=== PATIENT | female | born 1970 | race Caucasian/White ===

== ENCOUNTER 2020-03-13 22:01 | Emergency (ER) | payer BC, SELFPAY ==
--- NOTE | 2020-03-13 22:02 | XRR_ITS ---
PROCEDURE INFORMATION: Exam: XR Chest, 1 View Exam date and time: 03/13/2020 11:30 PM Age: 49 years old Clinical indication: Chest pain; Type not specified TECHNIQUE: Imaging protocol: XR of the chest Views: 1 view. COMPARISON: No relevant prior studies available. FINDINGS: Lungs: Unremarkable. No consolidation. Pleural space: Unremarkable. No pleural effusion. No pneumothorax. Heart/Mediastinum: Unremarkable. No cardiomegaly. Bones/joints: Unremarkable. XR/XR chest 1V portable [id number] IMPRESSION: No acute findings.
--- NOTE | 2020-03-13 22:02 | ECG_ITS ---
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 Measurements Intervals [place] Rate: 90 P: 30 MO: 154 QRS: 13 QRSD: 90 T: 50 QT: 366 QTc: 449 Interpretive Statements SINUS RHYTHM WITH SINUS ARRHYTHMIA AND A SHORT RUN OF paroxysmal atrial tachycardia ABNORMAL RHYTHM ECG No previous ECG available for comparison Electronically Signed On 03-15-2020 0:25:58 CDT by Thuy Guevara M.D. [id number]
[2020-03-13 22:11] VITALS: BP 162/116; PULSE 109; RESP 22; TEMP 36.8; O2SAT 96; BMI 34.7
[2020-03-13 22:23] LABS: Basophils # 0.1 10^3/uL (0.0-0.1); Basophils % 0.6 %; Eosinophils # 0.3 10^3/uL (0.0-0.8); Eosinophils % 1.6 %; Hematocrit 48.2 % (37.0-47.0); Lymphocytes # 4.1 10^3/uL (0.8-4.8); Lymphocytes % 23.7 %; Mean Corpuscular HGB Conc 31.1 g/dL (30.0-36.0); Mean Corpuscular Hemoglobin 27.4 pg (28.0-34.0); Mean Platelet Volume 9.2 fL (7.4-10.4); Monocytes # 1.3 10^3/uL (0.2-0.9); Monocytes % 7.6 %; Neutrophils # 11.29 10^3/uL (1.8-7.7); Neutrophils % 65.8 %; Nucleated Red Blood Cells % 0 %; Platelet Count 371 10^3/cmm (130-400); Red Blood Count 5.48 10^6/uL (4.1-5.3); Red Cell Distribution Width 14.6 % (12.1-15.1); White Blood Count 17.2 10^3/uL (4.0-10.0)
--- NOTE | 2020-03-13 22:24 | ED_ITS ---
HPI - Chest Pain General: Chief Complaint: Chest Pain Stated Complaint: cp Time Seen by Provider: 03/13/20 22:12 Source: patient Mode of arrival: ambulatory Limitations: no limitations History of Present Illness: HPI narrative: Patient is a very nice 49-year-old female with a history of CHF and CAD here for complaints of substernal chest pain that began about 4-5 hours ago while at rest. Patient tells me the pain is located substernally and describes the pain as a tearing squeezing sensation. She tells me she had a previous WI in March 2019 and another one 2 years prior to that. She states her symptoms today feel different than her previous MIs. She tells me she does feel short of breath but states that is fairly chronic given her CHF history. She was otherwise feeling normal when pain began. She states she had a previous stress test and echocardiogram approximately a year ago but does not know the results of these (were done in [place], [place]). Patient recently moved to [place], [place]-has no established medical care. Reports no hx or symtpoms of GERD. MD complaint: chest pain Pertinent past history: coronary artery disease, prior WI and asthma Onset (ago): hour(s) Timing of current episode: constant Prior episodes: Yes Onset: during rest Pain location: substernal Pain radiation: none Quality: tearing and other (squeezing) Relieving factors: nothing Exacerbating factors: nothing Associated symptoms: Reports dyspnea; Deny abdominal pain, fever(s), nausea, palpitations, syncope or vomiting Treatment prior to arrival: none Review of Systems Const: Denies: fever(s) or chills Eyes: Denies: change in vision or blurry vision ENMT: Denies: odynophagia Card: Reports: chest pain; Denies: palpitations, irregular heart rhythm, edema, swelling of feet/ankles, lightheadedness, syncope, pre-syncope, dyspnea on exertion, orthopnea, leg pain with exertion or acrocyanosis Resp: Reports: dyspnea; Denies: productive cough, non-productive cough, pain on inspiration, hemoptysis or chest congestion GI: Denies: abdominal pain, nausea, vomiting, heartburn, diarrhea, change in bowel habits or change in stool character : Denies: dysuria Musc: Denies: neck pain, back pain or joint pain Skin/Breast: Denies: rash Neuro: Denies: headache(s), numbness in extremities, weakness in extremities or sensory changes PFSH ED PFSH: Social History Smoking and tobacco status: never smoked Physical Exam Const: COMMON NORMALS: average body habitus, patient oriented x3, no limitations, healthy appearing, alert and well nourished GENERAL APPEARANCE: cooperative, in distress (appears uncomfortable ) and anxious ORIENTATION/CONSCIOUSNESS: Yes oriented to person, Yes oriented to place and Yes oriented to time HENMT: COMMON NORMALS: normocephalic and atraumatic HEAD & SCALP: normocephalic and atraumatic Chest: COMMONS NORMALS: normal inspection of the chest and normal palpation of entire chest wall Resp: COMMON NORMALS: normal respiratory effort and clear to auscultation bilaterally AUSCULTATION: clear to auscultation bilaterally Cardio: COMMON NORMALS: regular rhythm RATE: tachycardic (mild) RHYTHM: regular rhythm GI: COMMON NORMALS: Normal to inspection, nondistended, normoactive bowel sounds present, Soft to palpation, non-tender, No hepatosplenomegaly present and no masses PALPATION: Yes Soft to palpation and Yes No hepatosplenomegaly present Extremity: COMMON NORMALS: normal to inspection, capillary refill normal, no clubbing, cyanosis or edema, no calf tenderness and no pedal edema Neuro: RODRIGUE COMA SCALE: document GCS findings [place] coma scale eye opening: Spontaneous Rodrigue coma scale verbal response: Orientated [place] coma scale motor response: Obey commands Rodrigue coma scale total score: 15 COMMON NORMALS: patient oriented x3, moves all extremities, no focal motor deficits and no sensory deficits noted SENSORIUM/ORIENTATION: Yes alert, Yes oriented to person, Yes oriented to place and Yes oriented to time Skin: NARRATIVE SKIN EXAM: facial flushing Course Reevaluation(s): Reevaluation #1: Patient reports 0/10 pain after morphine and nitro Vital Signs: Vital signs: Vital Signs Temperature 98.2 F 03/13/20 22:11 Pulse Rate 84 03/14/20 02:12 Respiratory Rate 18 03/14/20 02:35 Blood Pressure 141/101 03/14/20 02:12 Pulse Oximetry 98 03/14/20 02:12 MDM - Chest Pain MDM Narrative: Medical decision making narrative: Patient with a HEART score of at least 4. Chest pain returning while in ED. Recommend patient stay at least obs for cardiac rule out. Of note, CTA reporting ground glass appearance. She reports no fevers/body aches, cough, difficulty breathing. States she otherwise felt well prior to symptoms starting. Radiologist stated this could be secondary to edema-pt does have a hx of CHF. Will go ahead and add on BNP. Dr. Nelson will evaluate patient and speak to Dr. Hernadez about admission. Dr. Hernadez has requested patient receive COVID testing. Patient is adamantly refusing this stating she is worried about false positives and does not want to force her family into quarantine. I discussed with patient that the hospitalist is not willing to accept her without this test. Again she adamantly refuses. Patient will ultimately sign out AMA as I have recommended she come into the hospital for cardiac rule out. Risks of leaving were discussed and patient and her understand. Dr. Nelson has also spoken to patient regarding this. Lab Data: Labs: Lab Results 03/13/20 03/13/20 03/13/20 Range/Units 22:17 22:17 22:17 WBC 17.2 H (4.0-10.0) 10^3/ uL RBC 5.48 H (4.1-5.3) 10^6/u L Hgb 15.0 (11.5-15.3) g/dL Hct 48.2 H (37.0-47.0) % MCV 88.0 (81-99) fL MCH 27.4 L (28.0-34.0) pg MCHC 31.1 (30.0-36.0) g/dL RDW 14.6 (12.1-15.1) % Plt Count 371 (130-400) 10^3/c mm MPV 9.2 (7.4-10.4) fL Neut % (Auto) 65.8 % Lymph % (Auto) 23.7 % Woods % (Auto) 7.6 % Eos % (Auto) 1.6 % Baso % (Auto) 0.6 % Neut # (Auto) 11.29 H (1.8-7.7) 10^3/u L Lymph # (Auto) 4.1 (0.8-4.8) 10^3/u L Woods # (Auto) 1.3 H (0.2-0.9) 10^3/u L Eos # (Auto) 0.3 (0.0-0.8) 10^3/u L Baso # (Auto) 0.1 (0.0-0.1) 10^3/u L Nucleated RBC % (a uto) 0 % Nucleated RBCs # 0.0 /100WBC Sodium 134 L (136-145) mmol/L Potassium 4.0 (3.5-5.1) mmol/L Chloride 101 (98-107) mmol/L Carbon Dioxide 23 (22-29) mmol/L Anion Gap 14.0 (5-19) BUN 18 (6-20) mg/dL Creatinine 1.0 H (0.5-0.9) mg/dL GFR Calculation 58.5 L (90-130) mL/min Glucose 92 (65-115) mg/dL Calculated Osmolal ity 274 L (285-295) mOsm/k g Calcium 9.6 (8.5-10.5) mg/dL Total Bilirubin 0.2 (0.15-1.2) mg/dL AST 23 (0-32) U/L ALT 21 (0-33) U/L Alkaline Phosphata se 67 (35-105) IU/L Troponin T Baselin e 6 (0-10) ng/L Troponin T 120 Min [place] (0-10) ng/L Delta Troponin T (0-10) ABS# NT-Pro-B Natriuret Pep (0-125) pg/mL Total Protein 7.6 (6.6-8.7) g/dL Albumin 4.4 (3.5-5.2) g/dL Globulin 3.2 (1.3-4.6) g/dL 03/14/20 03/14/20 Range/Units 00:01 00:01 WBC (4.0-10.0) 10^3/ uL RBC (4.1-5.3) 10^6/u L Hgb (11.5-15.3) g/dL Hct (37.0-47.0) % MCV (81-99) fL MCH (28.0-34.0) pg MCHC (30.0-36.0) g/dL RDW (12.1-15.1) % Plt Count (130-400) 10^3/c mm MPV (7.4-10.4) fL Neut % (Auto) % Lymph % (Auto) % Woods % (Auto) % Eos % (Auto) % Baso % (Auto) % Neut # (Auto) (1.8-7.7) 10^3/u L Lymph # (Auto) (0.8-4.8) 10^3/u L Woods # (Auto) (0.2-0.9) 10^3/u L Eos # (Auto) (0.0-0.8) 10^3/u L Baso # (Auto) (0.0-0.1) 10^3/u L Nucleated RBC % (a uto) % Nucleated RBCs # /100WBC Sodium (136-145) mmol/L Potassium (3.5-5.1) mmol/L Chloride (98-107) mmol/L Carbon Dioxide (22-29) mmol/L Anion Gap (5-19) BUN (6-20) mg/dL Creatinine (0.5-0.9) mg/dL GFR Calculation (90-130) mL/min Glucose (65-115) mg/dL Calculated Osmolal ity (285-295) mOsm/k g Calcium (8.5-10.5) mg/dL Total Bilirubin (0.15-1.2) mg/dL AST (0-32) U/L ALT (0-33) U/L Alkaline Phosphata se (35-105) IU/L Troponin T Baselin e (0-10) ng/L Troponin T 120 Min [place] 6.00 (0-10) ng/L Delta Troponin T 0 (0-10) ABS# NT-Pro-B Natriuret Pep 66 (0-125) pg/mL Total Protein (6.6-8.7) g/dL Albumin (3.5-5.2) g/dL Globulin (1.3-4.6) g/dL Imaging Data^: CTA Chest: Radiologist's impression: [address] [address] [address] Scan Report Signed Patient: Hilary Coronel Unit #: [id number] : 1970 Age/Sex: 49 / F ADM Date: 03/13/20 Loc: ER Room/Bed: Attending Dr: Ordering Provider/Ordering MD: Lisa Jonhson Date of Service: 03/13/20 Procedure(s): CT angio chest 28921 Accession Number(s): [id number] Report Number: [id number] PROCEDURE INFORMATION: Exam: CT Angiography Chest With Contrast Exam date and time: 03/13/2020 10:51 PM Age: 49 years old Clinical indication: Dyspnea; Chest pain; Type not specified; Additional info: Chest pain; SOB TECHNIQUE: Imaging protocol: Computed tomographic angiography of the chest with intravenous contrast. 3D rendering: MIP and/or 3D reconstructed images were created by the technologist. Radiation optimization: All CT scans at this facility use at least one of these dose optimization techniques: automated exposure control; mA and/or kV adjustment per patient size (includes targeted exams where dose is matched to clinical indication); or iterative reconstruction. Contrast material: OMNI 350; Contrast volume: 95 ml; Contrast route: INTRAVENOUS (IV); COMPARISON: No relevant prior studies available. RADIATION DOSE METRICS: Total DLP (mGy-cm): 2050.15 FINDINGS: Pulmonary arteries: There is no pulmonary embolus. Aorta: Unremarkable. No aortic aneurysm. No aortic dissection. Lungs: There is bilateral patchy diffuse ground-glass opacity in the lungs compatible with pneumonitis, atelectasis and/or edema. No lobar consolidation. Pleural space: Unremarkable. No pneumothorax. No pleural effusion. Heart: The heart is enlarged. Mediastinal space: A small hiatal hernia is present. Lymph nodes: Unremarkable. No enlarged lymph nodes. Bones/joints: Unremarkable. No acute fracture. Soft tissues: Unremarkable. Other findings: There is no aneurysm or dissection. CT/CT angio chest [id number] IMPRESSION: 1. There is no pulmonary embolus. 2. There is no aneurysm or dissection. 3. There is bilateral patchy diffuse ground-glass opacity in the lungs compatible with pneumonitis, atelectasis and/or edema. Radiation Dose CTDIVOL = (mGy): DLP = 2050.15 (mGy-cm) Dictated By: Rianna Chun Signed By: Rianna Chun Signed Date/Time: 03/13/202354 DD/ 52 Discharge Plan Discharge Patient Disposition: Left Against Medical Advice Clinical Impression: Chest pain Qualifiers: Chest pain type: unspecified Qualified Code(s): R07.9 - Chest pain, unspecified CAD (coronary artery disease) Qualifiers: Coronary Disease-Associated Artery/Lesion type: unspecified vessel or lesion type [place] vs. transplanted heart: [place] heart Associated angina: angina presence unspecified Qualified Code(s): I25.10 - Atherosclerotic heart disease of [place] coronary artery without angina pectoris CHF (congestive heart failure) Qualifiers: Heart failure type: diastolic Heart failure chronicity: chronic Qualified Code(s): I50.32 - Chronic diastolic (congestive) heart failure Condition: Stable Prescriptions: No Action amlodipine 2.5 mg tablet 2.5 mg PO DAILY RF: 0 hydrochlorothiazide 25 mg tablet 25 mg PO DAILY RF: 0 levothyroxine 25 mcg 25 mcg PO DAILY RF: 0 spironolactone 25 mg 25 mg PO DAILY RF: 0 Synthroid 25 mcg 25 mcg PO DAILY RF: 0 topiramate 25 mg 25 mg PO DAILY RF: 0 ipratropium bromide 0.02 mcg 0.02 mcg nebulizer PRN RF: 0 Coding Level of Care Code ED Repair Mechanic for Lionelg Fwd Exam Comprehensive
[2020-03-13 22:30] VITALS: RESP 18
[2020-03-13] MEDS: nitroglycerin 0.4 mg sublingual Tablet SUBLINGUAL ×2 (22:30→22:35)
[2020-03-13] MEDS: morphine 4 mg/mL SDV 1 mL IVP (22:30)
[2020-03-13 22:35] VITALS: BP 162/116; PULSE 114; RESP 18; O2SAT 98
[2020-03-13 22:42] LABS: Alanine Aminotransferase 21 U/L (0-33); Albumin Level 4.4 g/dL (3.5-5.2); Alkaline Phosphatase 67 IU/L (35-105); Aspartate Amino Transferase 23 U/L (0-32); Blood Urea Nitrogen 18 mg/dL (6-20); Calcium 9.6 mg/dL (8.5-10.5); Carbon Dioxide 23 mmol/L (22-29); Chloride 101 mmol/L (98-107); Globulin 3.2 g/dL (1.3-4.6); Glomerular Filtration Rate 58.5 mL/min (90-130); Glucose 92 mg/dL (65-115); Osmolality Calculated 274 mOsm/kg (285-295); Sodium 134 mmol/L (136-145); Total Bilirubin 0.2 mg/dL (0.15-1.2); Total Protein 7.6 g/dL (6.6-8.7)
[2020-03-13 22:44] LABS: Troponin(5th) Baseline 6 ng/L (0-10)
[2020-03-13 22:53] VITALS: BP 106/73; PULSE 102; RESP 16; O2SAT 99
--- NOTE | 2020-03-13 23:37 | PC.NURSE ---
Patient in CT at this time
[2020-03-13] MEDS: iohexol 350 mg/mL 100 mL Btl IV (23:43)
--- NOTE | 2020-03-14 00:02 | ECG_ITS ---
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 Measurements Intervals [place] Rate: 75 P: 31 MI: 169 QRS: 27 QRSD: 92 T: 42 QT: 421 QTc: 472 Interpretive Statements SINUS RHYTHM POSSIBLE INFERIOR MYOCARDIAL INFARCTION , PROBABLY OLD [30 ms Q WAVE IN II/aVF] Compared to ECG 03/13/2020 22:11:00 Myocardial infarct finding now present Electronically Signed On 03-15-2020 0:31:49 CDT by Thuy Guevara M.D. [id number]
[2020-03-14 00:29] LABS: Troponin 5 2HR Delta 0 ABS# (0-10)
[2020-03-14 00:31] VITALS: RESP 16; O2SAT 98
[2020-03-14] MEDS: morphine 4 mg/mL SDV 1 mL 2 MG IVP ×2 (00:31→02:35)
[2020-03-14 00:35] VITALS: BP 140/108; PULSE 81; RESP 16; O2SAT 99
[2020-03-14 01:09] LABS: NT Pro B Type Natriuretic Pept 66 pg/mL (0-125)
[2020-03-14 02:12] VITALS: BP 141/101; PULSE 84; RESP 18; O2SAT 98
[2020-03-14 02:35] VITALS: RESP 18
[2020-03-14 02:47] VITALS: BP 142/98; PULSE 68; RESP 18; O2SAT 98
--- NOTE | 2020-03-14 13:18 | DCPLANNER ---
manager care management had message to speak with patient about getting a primary care physician, and to make a referral to [facility]. manager care management called [phone], unable to speak with patient at this time, a voicemail was left for patient to return case reviewer phone call.
--- NOTE | 2020-03-15 15:03 | DCPLANNER ---
Patient returned returned case inspector phone call, stating that she did want help in getting established with a primary care physician, and she did want a referral to [facility]. manager search engine called [facility], a follow up appointment was scheduled for Sunday, March 29, 2020 at 9:[address] De Luna. manager search engine called the office of ONLINE MARKETING MANAGER, Emelia Rodriguez, spoke with Kaleigh, a follow up appointment was scheduled for Friday, March 20, 2020 at 1:30 with Emelia Rodriguez. manager search engine called patient and gave patient the appointment information for both appointments.
--- NOTE | 2020-04-28 14:52 | DCPLANNER ---
Patient had a follow up appointment scheduled for 03.20.20 with Diana Rodriguez - appointment was cancelled Patient had a follow up appointment scheduled for 03.29.20 with [facility] - patient did not attend appointment.
== END 2020-03-14 02:49 | disposition left against medical advice (07) ==
PROVIDERS: Emergency Provider Physician Assistant
DX: I25.10 Atherosclerotic heart disease of native coronary artery without angina pectoris (principal); I50.32 Chronic diastolic (congestive) heart failure
CPT/HCPCS: 12345; 36415; 71045; 71275; 80053; 83880; 84484; 85025; 93005; 96374; 96375; 96376; 99282; 99284; J2270; Q9967

== ENCOUNTER 2021-03-21 17:25 | Emergency (ER) | payer BC, SELFPAY ==
[2021-03-21 18:01] VITALS: BP 152/91; PULSE 90; RESP 17; TEMP 37; O2SAT 97
--- NOTE | 2021-03-21 18:15 | W.ED.HA ---
HPI - Headache General: Chief Complaint: Headache Stated Complaint: SEVERE H/A Time Seen by Provider: 03/21/21 18:14 History of Present Illness: HPI Narrative: 50-year-old female comes in today with temporal headache. Patient reports headache seems to be in bilateral temples. Patient appears well. Patient appears no acute distress. Patient reports the headache has been persistent for the last 5 days. Patient is use hydrocodone, and [id number] medications without any relief of headache. Patient does have a history of coronary artery disease, congestive heart failure, and a reactive airway. Patient appears well. Patient has no obvious neurologic deficits. Patient responds appropriately to questions. Patient reports that this is her worst headache she has had. MD elicited complaint: headache Quality & Timing: aching Exacerbating factors: none Review of Systems General: Reports: 10 or more systems reviewed and unremarkable except in HPI and below Neuro: Reports: headache(s) [facility] ED PFSH: Social History Smoking and tobacco status: never smoked Physical Exam Const: COMMON NORMALS: no acute distress and patient oriented x3 GENERAL APPEARANCE: cooperative HENMT: COMMON NORMALS: normocephalic, TM's normal bilaterally and Normal external nose present HEAD & SCALP: normal to inspection and normocephalic NOSE: Normal external nose present TYMPANIC MEMBRANE: TM's normal bilaterally MOUTH: Normal oral and palatal mucosa present THROAT: posterior oropharynx normal Eye: GENERAL EYE: appearance normal, both eyes and all related structures Neck/C-Spine: COMMON NORMALS: full ROM Lymph: LYMPHATIC: no lymphadenopathy noted Chest: COMMONS NORMALS: normal inspection of the chest Resp: COMMON NORMALS: normal respiratory effort EFFORT & INSPECTION: Yes able to speak in complete sentences Cardio: COMMON NORMALS: regular rate and regular rhythm RATE: regular rate RHYTHM: regular rhythm GI: COMMON NORMALS: non-tender : COMMON NORMALS: Yes no CVA tenderness BLADDER/KIDNEY EXAM: Yes no CVA tenderness Back/Pelvis: COMMON NORMALS: no CVA tenderness and thoracic and lumbar spine normal to inspection Extremity: COMMON NORMALS: normal to inspection Neuro: COMMON NORMALS: patient oriented x3 and moves all extremities Psych: COMMON NORMALS: mental status grossly normal and cooperative Skin: COMMON NORMALS: no rashes or lesions noted GENERAL SKIN EXAM: no rashes or lesions noted Course Vital Signs: Vital signs: Vital Signs Temperature 98.6 F 03/21/21 18:01 Pulse Rate 90 03/21/21 18:01 Respiratory Rate 17 03/21/21 18:01 Blood Pressure 152/91 03/21/21 18:01 Pulse Oximetry 97 03/21/21 18:01 MDM - Headache MDM Narrative: Medical decision making narrative: 50-year-old female comes in today with complaints of headache. Patient reports for the last 5 days she has had a headache without any relief from home medication. Patient appears well. Patient appears no acute distress. On exam patient is alert oriented. Skin is warm and dry. Vital signs are normal except for mild elevation in blood pressure with a systolic of 150. Differential diagnosis includes but not limited to intracranial bleed, migraine headache, tension headache, sinusitis. CT of the head indicated no abnormality. Patient was medicated with Reglan 10 mg, diphenhydramine 12-1/2 mg, 8 mg dexamethasone, and 15 mg ketorolac. Patient complete resolution of headache. Recommended patient drink plenty of fluids and follow-up with primary care for further instruction. Patient reported understanding and agreed to plan. Discharge Plan Discharge Patient Disposition: Home Clinical Impression: Headache Qualifiers: Headache type: unspecified Headache chronicity pattern: acute headache Intractability: not intractable Qualified Code(s): R51.9 - Headache, unspecified Condition: Stable Prescriptions: No Action amlodipine 2.5 mg tablet 2.5 mg PO DAILY RF: 0 hydrochlorothiazide 25 mg tablet 25 mg PO DAILY RF: 0 levothyroxine 25 mcg 25 mcg PO DAILY RF: 0 spironolactone 25 mg 25 mg PO DAILY RF: 0 Synthroid 25 mcg 25 mcg PO DAILY RF: 0 topiramate 25 mg 25 mg PO DAILY RF: 0 ipratropium bromide 0.02 mcg 0.02 mcg nebulizer PRN RF: 0 Discharge Orders: Discharge ED (Routine); Ordered 03/21/21 Ordered By: Junior Tomlin Discharge Diet: Usual diet Discharge Activity: Increase activity as tolerated Patient Instructions: Acute Headache (ED), Opioid Safety Activity Restrictions/Additional Instructions: Drink plenty of fluids. Continue with routine medications as prescribed. Follow-up with primary care for further instruction. Return to the ER as needed. Coding Level of Care Code ED Hair Mixer for Chg Fwd Exam Comprehensive
--- NOTE | 2021-03-21 18:22 | CTR_ITS ---
PROCEDURE INFORMATION: Exam: CT Head Without Contrast Exam date and time: 03/21/2021 6:22 PM Age: 50 years old Clinical indication: Pain; Headache; Additional info: New onset headaches TECHNIQUE: Imaging protocol: Computed tomography of the head without contrast. Radiation optimization: All CT scans at this facility use at least one of these dose optimization techniques: automated exposure control; mA and/or kV adjustment per patient size (includes targeted exams where dose is matched to clinical indication); or iterative reconstruction. COMPARISON: No relevant prior studies available. RADIATION DOSE METRICS: Total DLP (mGy-cm): 918.6 FINDINGS: Brain: Normal. No hemorrhage. Unremarkable white matter. No mass effect. Cerebral ventricles: No ventriculomegaly. Paranasal sinuses: Visualized sinuses are unremarkable. No fluid levels. Mastoid air cells: Visualized mastoid air cells are well aerated. Bones/joints: Unremarkable. No acute fracture. Soft tissues: Unremarkable. CT/CT head wo con* [id number] IMPRESSION: No acute intracranial abnormality. Radiation Dose CTDIVOL = (mGy): DLP = 918.6 (mGy-cm)
[2021-03-21] MEDS: diphenhydrAMINE 50 mg/mL SDV 1mL 12.5 MG IVP (18:53)
[2021-03-21] MEDS: ketorolac 30 mg/mL INJ 15 MG IVP (18:55)
[2021-03-21] MEDS: metoclopramide 5 mg/mL SDV 2 mL 10 MG IVP (18:56)
[2021-03-21] MEDS: dexamethasone 4 mg/mL INJ 8 MG IVP (19:00)
[2021-03-21 19:11] VITALS: BP 128/81; PULSE 88; RESP 16; TEMP 37; O2SAT 98
== END 2021-03-21 19:21 | disposition home or self-care (01) ==
PROVIDERS: Emergency Provider Nurse Practitioner Family
DX: R51.9 Headache, unspecified (principal)
CPT/HCPCS: 70450; 96374; 96375; 99283; J1100; J1200; J1885; J2765

== ENCOUNTER 2021-06-22 22:40 | Emergency (ER) | payer BC, SELFPAY ==
--- NOTE | 2021-06-22 22:44 | XRR_ITS ---
PROCEDURE INFORMATION: Exam: XR Chest Exam date and time: 06/22/2021 10:44 PM Age: 51 years old Clinical indication: Pain; Left-sided; Additional info: Cp TECHNIQUE: Imaging protocol: XR of the chest. Views: 1 view. COMPARISON: CR XR chest 1V portable [id number] 03/13/2020 11:22 PM FINDINGS: Lungs: Unremarkable. No consolidation. Pleural spaces: Unremarkable. No pleural effusion. No pneumothorax. Heart/Mediastinum: Unremarkable. No cardiomegaly. Bones/joints: Unremarkable. XR/XR chest 1V portable [id number] IMPRESSION: No acute findings. Radiation Dose CTDIVOL = (mGy): DLP = (mGy-cm)
--- NOTE | 2021-06-22 22:44 | ECG_ITS ---
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 Measurements Intervals [place] Rate: 86 P: 22 GA: 162 QRS: -4 QRSD: 86 T: 29 QT: 376 QTc: 451 Interpretive Statements SINUS RHYTHM LOW QRS VOLTAGE IN PRECORDIAL LEADS [QRS DEFLECTION < 1.0 mV IN CHEST LEADS] POSSIBLE ANTERIOR MYOCARDIAL INFARCTION , PROBABLY OLD [30 ms Q WAVE IN V3/V4, OR R < 0.2 mV IN V4] No previous ECG available for comparison Electronically Signed On 06-23-2021 22:00:06 AIRLINE MECHANIC by Thuy Guevara M.D. [id number]
[2021-06-22 22:51] VITALS: BP 204/122; PULSE 79; RESP 18; TEMP 36.7; O2SAT 97
[2021-06-22] MEDS: aspirin 81 mg Chew Tablet 324 MG PO (23:12)
[2021-06-22] MEDS: morphine 4 mg/mL SDV 1 mL IVP (23:12)
--- NOTE | 2021-06-22 23:13 | W.ED.CHESTPA ---
HPI - Chest Pain General: Chief Complaint: Chest Pain Stated Complaint: Chest Pain Time Seen by Provider: 06/22/21 22:44 Source: patient Mode of arrival: ambulatory Limitations: no limitations History of Present Illness: HPI narrative: 51-year-old female states she has been having constant chest pain over the last 5 days she states been sharp and pressure type pains in the center of her chest that will not go away states its been constant with no dyspnea or nausea. States she has no worsening improving factors denies any vomiting or diarrhea states her pain is currently a 6 out of 10. Associated symptoms: Deny abdominal pain, dyspnea, fever(s), nausea or vomiting Review of Systems Const: Denies: fever(s), chills, body aches or change in appetite Eyes: Denies: blurry vision or eye discomfort ENMT: Denies: throat pain or dental pain Card: Denies: chest pain Resp: Denies: dyspnea GI: Denies: abdominal pain, nausea, vomiting or diarrhea : Denies: dysuria Musc: Denies: neck pain or back pain Skin/Breast: Denies: rash Neuro: Denies: headache(s) Psych: Denies: depression Jairon/Lymph: Denies: easy bruising All/Imm: Denies: urticaria PFSH ED PFSH: Social History Smoking and tobacco status: never smoked Physical Exam Const: COMMON NORMALS: no acute distress, patient oriented x3 and healthy appearing HENMT: COMMON NORMALS: normocephalic and atraumatic HEAD & SCALP: normocephalic and atraumatic Eye: COMMON NORMALS: Equal, round and reactive pupils present and EOMs intact bilaterally PUPIL: Yes Equal, round and reactive pupils present Neck/C-Spine: COMMON NORMALS: full ROM and supple Chest: COMMONS NORMALS: normal inspection of the chest and normal palpation of entire chest wall Resp: COMMON NORMALS: normal respiratory effort, No retractions, No use of accessory muscles and clear to auscultation bilaterally AUSCULTATION: clear to auscultation bilaterally Cardio: COMMON NORMALS: regular rate, regular rhythm and No murmurs present (Cardio) RATE: regular rate RHYTHM: regular rhythm GI: COMMON NORMALS: Normal to inspection, nondistended, normoactive bowel sounds present, Soft to palpation, non-tender and no masses PALPATION: Yes Soft to palpation Extremity: COMMON NORMALS: normal to inspection and full ROM Neuro: COMMON NORMALS: patient oriented x3, moves all extremities and no focal motor deficits Psych: COMMON NORMALS: mental status grossly normal, Normal thought process present and cooperative THOUGHT PROCESS: Normal thought process present Skin: COMMON NORMALS: no rashes or lesions noted and no wounds GENERAL SKIN EXAM: no rashes or lesions noted Course Vital Signs: Vital signs: Vital Signs Temperature 98.1 F 06/22/21 22:51 Pulse Rate 78 06/23/21 01:46 Respiratory Rate 24 H 06/23/21 01:46 Blood Pressure 142/99 06/23/21 01:46 Pulse Oximetry 98 06/23/21 01:46 MDM - Chest Pain MDM Narrative: Medical decision making narrative: Patient presents here with chest pain is been going on for 5 days patient's initial repeat troponins here are negative D-dimer is negative as well she is no signs of acute coronary syndrome or pulmonary embolism I believe she is stable for discharge we will get her follow-up with cardiology she is to follow-up as scheduled and return if worsening she understands and agrees to plan. Lab Data: Labs: Lab Results 06/22/21 06/22/21 06/22/21 23:14 23:14 23:14 WBC 15.3 10^3/uL H 10 ^3/uL (4.0-10.0) RBC 5.41 10^6/uL H 10 ^6/uL (4.1-5.3) Hgb 15.5 g/dL H g/dL (11.5-15.3) Hct 47.0 % % (37.0-47.0) MCV 86.9 fl fl (81-99) MCH 28.7 pg pg (28.0-34.0) MCHC 33.0 g/dL g/dL (30.0-36.0) RDW 14.6 % % (12.1-15.1) Plt Count 384 10^3/cmm 10^3 /cmm (130-400) MPV 9.2 fL fL (7.4-10.4) Neut % (Auto) 58.7 % % Lymph % (Auto) 29.5 % % [place] % (Auto) 8.4 % % Eos % (Auto) 2.0 % % Baso % (Auto) 0.7 % % Neut # (Auto) 8.97 10^3/uL H 10 ^3/uL (1.8-7.7) Lymph # (Auto) 4.5 10^3/uL 10^3/ uL (0.8-4.8) [place] # (Auto) 1.3 10^3/uL H 10^ 3/uL (0.2-0.9) Eos # (Auto) 0.3 10^3/uL 10^3/ uL (0.0-0.8) Baso # (Auto) 0.1 10^3/uL 10^3/ uL (0.0-0.1) Nucleated RBC % (a uto) 0 % % Nucleated RBCs # 0.0 /100WBC /100W BC D-Dimer Sodium 140 mmol/L mmol/L (136-145) Potassium 4.1 mmol/L mmol/L (3.5-5.1) Chloride 104 mmol/L mmol/L (98-107) Carbon Dioxide 23 mmol/L mmol/L (22-29) Anion Gap 17.1 (5-19) BUN 15 mg/dL mg/dL (6-20) Creatinine 0.8 mg/dL mg/dL (0.5-0.9) GFR Calculation 75.0 mL/min L mL/ min (90-130) Glucose 81 mg/dL mg/dL (65-115) Calculated Osmolal ity 290 mOsm/kg mOsm/ kg (285-295) Calcium 9.2 mg/dL mg/dL (8.5-10.5) Total Bilirubin 0.2 mg/dL mg/dL (0.15-1.2) AST 15 U/L U/L (0-32) ALT 14 U/L U/L (0-33) Alkaline Phosphata se 81 IU/L IU/L (35-105) Troponin T Baselin e 6 ng/L ng/L (0-10) Troponin T [address] [place] Troponin T Total Protein 7.5 g/dL g/dL (6.6-8.7) Albumin 4.3 g/dL g/dL (3.5-5.2) Globulin 3.2 g/dL g/dL (1.3-4.6) 06/22/21 06/23/21 23:14 01:08 WBC RBC Hgb Hct MCV MCH MCHC RDW Plt Count MPV Neut % (Auto) Lymph % (Auto) [place] % (Auto) Eos % (Auto) Baso % (Auto) Neut # (Auto) Lymph # (Auto) [place] # (Auto) Eos # (Auto) Baso # (Auto) Nucleated RBC % (a uto) Nucleated RBCs # D-Dimer <= 0.27 ug/mIFEU ug/mIFEU (0-0.59) Sodium Potassium Chloride Carbon Dioxide Anion Gap BUN Creatinine GFR Calculation Glucose Calculated Osmolal ity Calcium Total Bilirubin AST ALT Alkaline Phosphata se Troponin T Baselin e Troponin T [address] [place] 6.17 ng/L ng/L (0-10) [place] Troponin T 0.17 ABS# ABS# (0-10) Total Protein Albumin Globulin Imaging Data^: CXR: Radiologist's impression: [id number] [address] XRay Report Signed Patient: Hilary Acuna Unit #: [id number] : 1970 Age/Sex: 51 / F ADM Date: 06/22/21 Loc: ER Room/Bed: Attending Dr: Ordering Provider/Ordering MD: Christel Charles MD Date of Service: 06/22/21 Procedure(s): XR chest 1V portable [id number] Accession Number(s): [id number] Report Number: [id number] PROCEDURE INFORMATION: Exam: XR Chest Exam date and time: 06/22/2021 10:44 PM Age: 51 years old Clinical indication: Pain; Left-sided; Additional info: Cp TECHNIQUE: Imaging protocol: XR of the chest. Views: 1 view. COMPARISON: CR XR chest 1V portable [id number] 03/13/2020 11:22 PM FINDINGS: Lungs: Unremarkable. No consolidation. Pleural spaces: Unremarkable. No pleural effusion. No pneumothorax. Heart/Mediastinum: Unremarkable. No cardiomegaly. Bones/joints: Unremarkable. XR/XR chest 1V portable [id number] IMPRESSION: No acute findings. Radiation Dose CTDIVOL = (mGy): DLP = (mGy-cm) Dictated By: Sathish Pfeiffer MD Signed By: Sathish Pfeiffer MD Signed Date/Time: 06/22/218 DD/ EKG Data^: EKG 1: Attestation: I personally reviewed and interpreted this EKG as follows: EKG interpretation date: 06/22/21 EKG interpretation time: 22:49 Interpretation: nsr hr [address] or t wave abnormalities qrs 86 qtc 419 EKG 2: Attestation: I personally reviewed and interpreted this EKG as follows: EKG interpretation date: 06/23/21 EKG interpretation time: 00:48 Interpretation: nsr hr [address] or t wave abnormalities qrs 91 qtc 436 Discharge Plan Discharge Patient Disposition: Home Clinical Impression: Chest pain Qualifiers: Chest pain type: unspecified Qualified Code(s): R07.9 - Chest pain, unspecified Condition: Stable Prescriptions: No Action amlodipine 2.5 mg tablet 2.5 mg PO DAILY RF: 0 hydrochlorothiazide 25 mg tablet 25 mg PO DAILY RF: 0 levothyroxine 25 mcg 25 mcg PO DAILY RF: 0 spironolactone 25 mg 25 mg PO DAILY RF: 0 Synthroid 25 mcg 25 mcg PO DAILY RF: 0 topiramate 25 mg 25 mg PO DAILY RF: 0 ipratropium bromide 0.02 mcg 0.02 mcg nebulizer PRN RF: 0 Discharge Orders: Discharge ED (Routine); Ordered 06/23/21 Ordered By: Christel Charles Referrals: Bryan Morley M.D [Physician] - 1-3 days Discharge Diet: Advance as tolerated Discharge Activity: Resume usual activity Patient Instructions: Chest Pain (ED) Coding Level of Care Code ED Mule Developer for Chg Fwd Exam Comprehensive
[2021-06-22 23:24] LABS: Basophils # 0.1 10^3/uL (0.0-0.1); Basophils % 0.7 %; Eosinophils # 0.3 10^3/uL (0.0-0.8); Hemoglobin 15.5 g/dL (11.5-15.3); Lymphocytes # 4.5 10^3/uL (0.8-4.8); Lymphocytes % 29.5 %; Mean Corpuscular Hemoglobin 28.7 pg (28.0-34.0); Mean Corpuscular Volume 86.9 fl (81-99); Mean Platelet Volume 9.2 fL (7.4-10.4); Monocytes # 1.3 10^3/uL (0.2-0.9); Monocytes % 8.4 %; Neutrophils # 8.97 10^3/uL (1.8-7.7); Neutrophils % 58.7 %; Nucleated Red Blood Cells % 0 %; Platelet Count 384 10^3/cmm (130-400); Red Blood Count 5.41 10^6/uL (4.1-5.3); Red Cell Distribution Width 14.6 % (12.1-15.1); White Blood Count 15.3 10^3/uL (4.0-10.0)
[2021-06-22 23:45] LABS: Alanine Aminotransferase 14 U/L (0-33); Albumin Level 4.3 g/dL (3.5-5.2); Alkaline Phosphatase 81 IU/L (35-105); Anion Gap 17.1 (5-19); Aspartate Amino Transferase 15 U/L (0-32); Blood Urea Nitrogen 15 mg/dL (6-20); Calcium 9.2 mg/dL (8.5-10.5); Carbon Dioxide 23 mmol/L (22-29); Chloride 104 mmol/L (98-107); Globulin 3.2 g/dL (1.3-4.6); Glucose 81 mg/dL (65-115); Osmolality Calculated 290 mOsm/kg (285-295); Potassium 4.1 mmol/L (3.5-5.1); Sodium 140 mmol/L (136-145); Total Bilirubin 0.2 mg/dL (0.15-1.2); Total Protein 7.5 g/dL (6.6-8.7)
[2021-06-22 23:48] LABS: Troponin(5th) Baseline 6 ng/L (0-10)
[2021-06-22 23:51] LABS: D Dimer <= 0.27 ug/mIFEU (0-0.59)
[2021-06-23 01:18] VITALS: PULSE 71; RESP 20; O2SAT 97
[2021-06-23 01:46] VITALS: BP 142/99; PULSE 78; RESP 24; O2SAT 98
[2021-06-23] MEDS: labetalol 5 mg/mL SDV 20mL 10 MG IVP (01:46)
[2021-06-23] MEDS: morphine 4 mg/mL SDV 1 mL IVP (01:46)
[2021-06-23 01:51] LABS: Troponin 5 2HR 6.17 ng/L (0-10); Troponin 5 2HR Delta 0.17 ABS# (0-10)
[2021-06-23 02:10] VITALS: BP 131/99; PULSE 67; RESP 12; O2SAT 99
== END 2021-06-23 02:23 | disposition home or self-care (01) ==
PROVIDERS: Emergency Provider Emergency Medicine
DX: R07.9 Chest pain, unspecified (principal)
CPT/HCPCS: 71045; 80053; 84484; 85025; 85378; 93005; 96374; 96375; 96376; 99284; J2270; J3490

== ENCOUNTER 2021-12-09 23:24 | Emergency (ER) | payer BC, SELFPAY ==
[2021-12-09 23:46] VITALS: BP 159/101; PULSE 92; RESP 19; O2SAT 97; BMI 36.4
--- NOTE | 2021-12-09 23:52 | XRR_ITS ---
PROCEDURE INFORMATION: Exam: XR Chest Exam date and time: 12/10/2021 12:29 AM Age: 51 years old Clinical indication: Sternal or substernal pain; Additional info: Cp TECHNIQUE: Imaging protocol: XR of the chest. Views: 1 view. COMPARISON: CR XR chest 1V portable [id number] 06/22/2021 11:18 PM FINDINGS: Lungs: No CHF/pulmonary edema. Visible lungs appear essentially clear. Pleural spaces: No visible pneumothorax. No definite pleural fluid. Heart/Mediastinum: Heart size is within normal limits. Bones/joints: No significant acute finding. XR/XR chest 1V portable [id number] IMPRESSION: 1. Essentially unremarkable single view chest. 2. Other findings discussed above.
--- NOTE | 2021-12-09 23:52 | ECG_ITS ---
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 Measurements Intervals Dana Rate: 94 P: 17 PA: 160 QRS: -17 QRSD: 88 T: 8 QT: 355 QTc: 445 Interpretive Statements SINUS RHYTHM POSSIBLE ANTERIOR MYOCARDIAL INFARCTION , PROBABLY OLD [30 ms Q WAVE IN V3/V4, OR R < 0.2 mV IN V4] Compared to ECG 06/22/2021 22:49:34 No significant changes Electronically Signed On 12-10-2021 21:33:17 CDT by Thuy Guevara M.D. [id number] f
[2021-12-10 00:52] VITALS: RESP 16; O2SAT 97
[2021-12-10] MEDS: morphine 4 mg/mL SDV 1 mL 2 MG IVP (00:52)
[2021-12-10] MEDS: ondansetron 2 mg/ML SDV 2 mL 4 MG IVP (00:53)
[2021-12-10 00:54] LABS: Basophils # 0.1 10^3/uL (0.0-0.1); Basophils % 0.5 %; Eosinophils # 0.4 10^3/uL (0.0-0.8); Eosinophils % 3.3 %; Hematocrit 44.7 % (37.0-47.0); Hemoglobin 14.5 g/dL (11.5-15.3); Lymphocytes # 4.4 10^3/uL (0.8-4.8); Lymphocytes % 40.1 %; Mean Corpuscular HGB Conc 32.4 g/dL (30.0-36.0); Mean Corpuscular Hemoglobin 28.3 pg (28.0-34.0); Mean Corpuscular Volume 87.3 fl (81-99); Mean Platelet Volume 9.1 fL (7.4-10.4); Monocytes # 1.1 10^3/uL (0.2-0.9); Monocytes % 9.7 %; Neutrophils # 5.08 10^3/uL (1.8-7.7); Neutrophils % 46.1 %; Nucleated Red Blood Cells % 0 %; Platelet Count 385 10^3/cmm (130-400); Red Blood Count 5.12 10^6/uL (4.1-5.3)
[2021-12-10] MEDS: labetalol 5 mg/mL SDV 20mL 10 MG IVP (00:57)
[2021-12-10 00:59] VITALS: BP 159/99; PULSE 70; RESP 14; O2SAT 95
[2021-12-10 01:00] VITALS: BP 159/99; PULSE 71; RESP 16; O2SAT 98
[2021-12-10 01:12] LABS: Troponin(5th) Baseline 7 ng/L (0-10)
[2021-12-10 01:20] LABS: Alanine Aminotransferase 18 U/L (0-33); Albumin Level 3.9 g/dL (3.5-5.2); Alkaline Phosphatase 55 IU/L (35-105); Aspartate Amino Transferase 19 U/L (0-32); Blood Urea Nitrogen 17 mg/dL (6-20); Calcium 9.7 mg/dL (8.5-10.5); Carbon Dioxide 23 mmol/L (22-29); Chloride 103 mmol/L (98-107); Globulin 3.4 g/dL (1.3-4.6); Glucose 116 mg/dL (65-115); NT Pro B Type Natriuretic Pept 159 pg/mL (0-125); Osmolality Calculated 291 mOsm/kg (285-295); Sodium 139 mmol/L (136-145); Total Bilirubin 0.2 mg/dL (0.15-1.2); Total Protein 7.3 g/dL (6.6-8.7)
--- NOTE | 2021-12-10 01:21 | ED_ITS ---
HPI - Chest Pain General: Chief Complaint: Chest Pain Stated Complaint: cp Time Seen by Provider: 12/10/21 00:12 Source: patient History of Present Illness: 51-year-old female who states that she has an extensive cardiac history. She has no stents in her heart. She says that she has diastolic heart failure. She presents with chest pain. She has chest pains daily, but this is much worse. Her gave her tramadol which did not seem to help. She is not short of breath. She is mildly nauseated. Pain is sharp in nature. MD complaint: chest pain Onset (ago): hour(s) Timing of current episode: constant Prior episodes: Yes Onset: during rest Pain location: substernal Pain radiation: none Quality: sharp Relieving factors: nothing Exacerbating factors: nothing Associated symptoms: Reports nausea (Mild); Deny abdominal pain, diaphoresis, dyspnea, fever(s), leg edema, palpitations or vomiting Treatment prior to arrival: other Risk Factors: Coronary artery disease risk factors: hypertension and family history of CAD before age 50 Review of Systems Const: Denies: fever(s) or diaphoresis Eyes: Denies: change in vision ENMT: Denies: throat pain Card: Reports: chest pain; Denies: palpitations or edema Resp: Denies: dyspnea, productive cough or non-productive cough GI: Reports: nausea (Mild); Denies: abdominal pain or vomiting Musc: Denies: neck pain or back pain PFS ED PFSH: Social History Smoking and tobacco status: never smoked Physical Exam Const: COMMON NORMALS: alert GENERAL APPEARANCE: cooperative and anxious; not frail appearing NUTRITIONAL APPEARANCE: overweight ORIENTATION/CONSCIOUSNESS: Yes awake, Yes oriented to person, Yes oriented to place and Yes oriented to time HENMT: COMMON NORMALS: normocephalic, atraumatic and Normal external nose present HEAD & SCALP: normocephalic and atraumatic FACE & SINUS: normal facial exam NOSE: Normal external nose present Eye: COMMON NORMALS: Equal, round and reactive pupils present and EOMs intact bilaterally PUPIL: Yes Equal, round and reactive pupils present Neck/C-Spine: COMMON NORMALS: full ROM GENERAL: Yes trachea midline Chest: COMMONS NORMALS: normal inspection of the chest CHEST: Yes tenderness (Left chest) Resp: COMMON NORMALS: normal respiratory effort, No use of accessory muscles and clear to auscultation bilaterally EFFORT & INSPECTION: Yes respiratory distress AUSCULTATION: clear to auscultation bilaterally Cardio: COMMON NORMALS: regular rate, regular rhythm and Peripheral pulses 2+ throughout RATE: regular rate RHYTHM: regular rhythm PERIPHERAL PULSES: Peripheral pulses 2+ throughout GI: COMMON NORMALS: Normal to inspection, nondistended, normoactive bowel sounds present, Soft to palpation and non-tender PALPATION: Yes Soft to p alpation Extremity: COMMON NORMALS: no pedal edema Neuro: SENSORIUM/ORIENTATION: Yes alert, Yes oriented to person, Yes oriented to place and Yes oriented to time Psych: COMMON NORMALS: mental status grossly normal and cooperative Course Vital Signs: Vital signs: Vital Signs Pulse Rate 73 12/10/21 01:30 Respiratory Rate 16 12/10/21 01:30 Blood Pressure 157/99 12/10/21 01:30 Pulse Oximetry 73 L 12/10/21 01:30 MDM - Chest Pain Medical Decision Making 51-year-old female with a history evidently of diastolic heart failure. She presents with reproducible chest discomfort. Improved now after morphine, and control of her blood pressure which was 180 systolic. Currently her blood pressure is 133/94, heart rate 67, saturations 97% on room air. Chest x-ray is negative. Her EKG shows a sinus rhythm with a neutral axis intervals are normal. Heart rate is 90. No acute ST changes. Her troponin is 6. Her CBC is essentially normal. BMP is normal as well. She will be allowed discharge. Case management referral will be made for outpatient cardiology follow-up. Lab Data : 12/10/21 00:45 12/10/21 00:45 Laboratory Results WBC 11.0 10^3/uL (4.0-10.0) H 12/10/21 00:45 RBC 5.12 10^6/uL (4.1-5.3) 12/10/21 00:45 Hgb 14.5 g/dL (11.5-15.3) 12/10/21 00:45 Hct 44.7 % (37.0-47.0) 12/10/21 00:45 MCV 87.3 fl (81-99) 12/10/21 00:45 MCH 28.3 pg (28.0-34.0) 12/10/21 00:45 MCHC 32.4 g/dL (30.0-36.0) 12/10/21 00:45 RDW 15.0 % (12.1-15.1) 12/10/21 00:45 Plt Count 385 10^3/cmm (130-400) 12/10/21 00:45 MPV 9.1 fL (7.4-10.4) 12/10/21 00:45 Neut % (Auto) 46.1 % 12/10/21 00:45 Lymph % (Auto) 40.1 % 12/10/21 00:45 [place] % (Auto) 9.7 % 12/10/21 00:45 Eos % (Auto) 3.3 % 12/10/21 00:45 Baso % (Auto) 0.5 % 12/10/21 00:45 Neut # (Auto) 5.08 10^3/uL (1.8-7.7) 12/10/21 00:45 Lymph # (Auto) 4.4 10^3/uL (0.8-4.8) 12/10/21 00:45 [place] # (Auto) 1.1 10^3/uL (0.2-0.9) H 12/10/21 00:45 Eos # (Auto) 0.4 10^3/uL (0.0-0.8) 12/10/21 00:45 Baso # (Auto) 0.1 10^3/uL (0.0-0.1) 12/10/21 00:45 Nucleated RBC % (auto) 0 % 12/10/21 00:45 Nucleated RBCs # 0.0 /100WBC 12/10/21 00:45 Sodium 139 mmol/L (136-145) 12/10/21 00:45 Potassium 4.0 mmol/L (3.5-5.1) 12/10/21 00:45 Chloride 103 mmol/L (98-107) 12/10/21 00:45 Carbon Dioxide 23 mmol/L (22-29) 12/10/21 00:45 Anion Gap 17.0 (5-19) 12/10/21 00:45 BUN 17 mg/dL (6-20) 12/10/21 00:45 Creatinine 0.8 mg/dL (0.5-0.9) 12/10/21 00:45 GFR Calculation 75.0 mL/min (90-130) L 12/10/21 00:45 Glucose 116 mg/dL (65-115) H 12/10/21 00:45 Calculated Osmolality 291 mOsm/kg (285-295) 12/10/21 00:45 Calcium 9.7 mg/dL (8.5-10.5) 12/10/21 00:45 Total Bilirubin 0.2 mg/dL (0.15-1.2) 12/10/21 00:45 AST 19 U/L (0-32) 12/10/21 00:45 ALT 18 U/L (0-33) 12/10/21 00:45 Alkaline Phosphatase 55 IU/L (35-105) 12/10/21 00:45 Troponin T Baseline 7 ng/L (0-10) 12/10/21 00:45 NT-Pro-B Natriuret Pep 159 pg/mL (0-125) H 12/10/21 00:45 Total Protein 7.3 g/dL (6.6-8.7) 12/10/21 00:45 Albumin 3.9 g/dL (3.5-5.2) 12/10/21 00:45 Globulin 3.4 g/dL (1.3-4.6) 12/10/21 00:45 Discharge Plan Discharge Patient Disposition: Home Clinical Impression: Chest pain, Diastolic congestive heart failure Condition: Stable Prescriptions: No Action amlodipine 2.5 mg tablet 2.5 mg PO DAILY 0RF hydrochlorothiazide 25 mg tablet 25 mg PO DAILY 0RF levothyroxine 25 mcg 25 mcg PO DAILY 0RF spironolactone 25 mg 25 mg PO DAILY 0RF Synthroid 25 mcg 25 mcg PO DAILY 0RF topiramate 25 mg 25 mg PO DAILY 0RF ipratropium bromide 0.02 mcg 0.02 mcg nebulizer PRN 0RF Discharge Orders: Discharge ED (Routine); Ordered 12/10/21 Ordered By: Chris De León Patient Instructions: Chest Pain (ED) Activity Restrictions/Additional Instructions: Return for return of or worsening chest discomfort, shortness of breath, fever, cough or sputum production, any other concerning symptoms. A case management referral has been made for cardiology follow-up. You should get a call from them early in the week to set this up. Coding Level of Care Code ED Produce Laborer for Chg Fwd Exam Comprehensive
[2021-12-10 01:30] VITALS: BP 157/99; PULSE 73; RESP 16; O2SAT 73
[2021-12-10 01:57] VITALS: BP 133/94; PULSE 67; RESP 16; O2SAT 98
--- NOTE | 2021-12-10 14:30 | DCPLANNER ---
Addendum entered by Marti Beckett 03/27/22 11:33: Patient had a follow up appointment scheduled for 01.30.22 with heart care - appointment was cancelled Addendum entered by Marti Beckett 12/13/21 18:33: Patient has a follow up appointment scheduled for Friday, January 30, 2022 at 12:[address] Morley at [facility]. Clinic will call patient with appointment information. Original Note: region manager had message to schedule a follow up appointment for patient with heart care. region manager sent patients information to front office staff at [facility]. Patients information will be printed and reviewed. Clinic will call patient with appointment information.
== END 2021-12-10 01:59 | disposition home or self-care (01) ==
PROVIDERS: Nurse Practitioner Family; Emergency Provider Emergency Medicine
DX: R07.9 Chest pain, unspecified (principal); I50.30 Unspecified diastolic (congestive) heart failure
CPT/HCPCS: 71045; 80053; 83880; 84484; 85025; 93005; 96374; 96375; 99285; J2270; J2405; J3490

== ENCOUNTER 2021-12-21 20:12 | Emergency (ER) | payer BC, SELFPAY ==
--- NOTE | 2021-12-21 20:21 | CTR_ITS ---
PROCEDURE INFORMATION: Exam: CT Abdomen And Pelvis Without Contrast Exam date and time: 12/21/2021 9:47 PM Age: 51 years old Clinical indication: Abdominal pain; Right; Prior surgery; Surgery date: 6+ months; Surgery type: Csection; Patient HX: C/O RT flank pain. History of kidney stones. TECHNIQUE: Imaging protocol: Computed tomography of the abdomen and pelvis without contrast. Radiation optimization: All CT scans at this facility use at least one of these dose optimization techniques: automated exposure control; mA and/or kV adjustment per patient size (includes targeted exams where dose is matched to clinical indication); or iterative reconstruction. COMPARISON: CT angio chest [id number] 03/13/2020 11:30 PM RADIATION DOSE METRICS: Total DLP (mGy-cm): 1932.53 FINDINGS: Lungs: The lung bases are clear. Diaphragm: Small 2.5 cm hiatal hernia, similar to the prior exam. There may be some mucosal/wall thickening involving the lower esophagus. This is nonspecific, but could represent evidence for esophagitis. Please correlate clinically. Liver: Unremarkable. Gallbladder and bile ducts: No visible gallstones or other definite gallbladder abnormality by CT. Ultrasound would be more sensitive for detecting gallstones, if clinically needed. No biliary tree dilation. Pancreas: Unremarkable. Spleen: Apparent prior splenectomy. Several areas of accessory splenic tissue seen in the left upper quadrant, similar to the prior exam. Adrenal glands: Unremarkable. Kidneys and ureters: 3-4 mm left upper pole intrarenal calculus. Suspect a very small 1-2 mm right lower pole intrarenal calculus. No hydronephrosis of either kidney. No visible ureteral calculus. No perinephric fluid. Normal appearance of the kidneys on noncontrast CT does not entirely exclude the diagnosis of acute pyelonephritis. Please correlate with clinical and laboratory evaluation. Stomach and bowel: No significant bowel distention. There are no CT findings to strongly suggest diverticulitis. Appendix: The appendix is visualized and appears normal. Intraperitoneal space: No free intraperitoneal air, or ascites. Vasculature: No evidence for abdominal aortic aneurysm. Lymph nodes: No retroperitoneal adenopathy. Urinary bladder: No visible calculus in the urinary bladder. Possibly some mild diffuse urinary bladder wall thickening. Evaluation is somewhat limited, as the bladder is not well distended. While nonspecific, this could indicate evidence for cystitis. Please correlate clinically. Reproductive: No definite abnormal ovarian/adnexal cyst or mass by CT. Bones/joints: No significant acute finding. Soft tissues: 7 x 3 cm left upper abdominal wall ventral hernia, slightly larger than on the prior exam. CT/CT kidney stone [id number] IMPRESSION: 1. Bilateral intrarenal calculi. No hydronephrosis of either kidney. No visible ureteral calculus. No perinephric fluid, see above discussion. 2. Possible mild urinary bladder wall thickening, see above. 3. Normal appendix. 4. No visible gallstones by CT. 5. No free air or bowel distention. 6. Small hiatal hernia. Possibly some thickening of the lower esophagus, see above discussion. 7. Other findings discussed above.
[2021-12-21 20:39] VITALS: BP 185/107; PULSE 94; RESP 18; TEMP 36.6; O2SAT 95; BMI 36.1
[2021-12-21 22:18] LABS: Add Urine Microscopic? NO; Charge for UA Resulting for Rev
--- NOTE | 2021-12-21 22:29 | W.ED.ABDPA2 ---
HPI - Abdominal Pain General: Chief Complaint: Abdominal Pain Stated Complaint: Possible kidney stone Time Seen by Provider: 12/21/21 22:14 History of Present Illness: Patient is a 51-year-old female comes to the ED with right flank pain. Patient says she has a history of kidney stones. She states she has been having this right flank pain now for about a year. Over the past week the pain has increased in intensity. Its been fairly constant and pain has continued to increase in intensity. Today she rates the right flank pain as a 10 out of 10. She says the pain has not moved at all and has been in the same spot of her right flank since it first started. Denies any known injury to cause right flank or back pain.. Endorses that some movements cause worsening right flank/back pain having some decreased urine output, but is having normal p.o. fluid intake. Denies any bladder pain, dysuria, hematuria, fevers, chills, nausea/vomiting, bowel symptoms. Patient also endorses having a little bit of chest pain. She says the symptoms started upon arrival here to the ED. When they were walking into the emergency department, patient saw a small dog locked in a hot vehicle alone. She called and reported it to 911 and the police came. Dog belonged to one of the patient's visitors and then that dog missile inspector came out in and a verbal altercation occurred between patient's and the dog missile inspector. Patient says she started developing some stress and anxiety and that is when her chest pain started. She says her chest pain is mild and she is not really concerned about it and thinks it is most likely due to the stressful situation that happened when they came to the ED. Associated Symptoms: Denies chills, constipation, diarrhea, dysuria, fever(s), hematochezia, hematuria, nausea and vomiting Review of Systems Const: Denies: fever(s), chills or fatigue Eyes: Denies: change in vision or eye discomfort ENMT: Denies: throat pain, odynophagia, nasal discharge or nasal congestion Card: Reports: chest pain; Denies: palpitations, edema, swelling of feet/ankles, dyspnea on exertion or orthopnea Resp: Denies: dyspnea, productive cough or non-productive cough GI: Denies: abdominal pain, nausea, vomiting, diarrhea, constipation or hematochezia : Reports: flank pain (right flank) and oliguria; Denies: dysuria or hematuria Musc: Denies: neck pain, back pain or extremity swelling Skin/Breast: Denies: rash or new lesions Neuro: Denies: headache(s), numbness in extremities or weakness in extremities PFSH ED PFSH: Medical History Coronary artery disease Diastolic congestive heart failure Kidney stone No pertinent family history Social History Smoking and tobacco status: never smoked Physical Exam Const: COMMON NORMALS: patient oriented x3 and alert GENERAL APPEARANCE: cooperative HENMT: COMMON NORMALS: normocephalic HEAD & SCALP: normocephalic MOUTH: Normal oral and palatal mucosa present THROAT: posterior oropharynx normal and uvula midline Neck/C-Spine: COMMON NORMALS: supple GENERAL: Yes normal visual inspection Resp: COMMON NORMALS: normal respiratory effort, No retractions, No use of accessory muscles and clear to auscultation bilaterally AUSCULTATION: clear to auscultation bilaterally Cardio: COMMON NORMALS: regular rate, regular rhythm, S1 normal heart sound present, S2 normal heart sound present, No gallops present (Cardio), No clicks present (Cardio), No murmurs present (Cardio) and Peripheral pulses 2+ throughout RATE: regular rate RHYTHM: regular rhythm HEART SOUNDS: S1 normal heart sound present and S2 normal heart sound present PERIPHERAL PULSES: Peripheral pulses 2+ throughout GI: COMMON NORMALS: Normal to inspection, nondistended, normoactive bowel sounds present, Soft to palpation, non-tender and no masses PALPATION: Yes Soft to palpation : BLADDER/KIDNEY EXAM: Yes CVA tenderness on the right Back/Pelvis: GENERAL BACK: Yes CVA tenderness Extremity: COMMON NORMALS: normal to inspection Neuro: COMMON NORMALS: patient oriented x3 SENSORIUM/ORIENTATION: Yes alert GAIT: Yes Normal gait present Skin: GENERAL SKIN EXAM: dry skin Course Vital Signs: Vital signs: Vital Signs Temperature 98.1 F 12/22/21 02:10 Pulse Rate 81 12/22/21 02:10 Respiratory Rate 16 12/22/21 02:10 Blood Pressure 179/89 12/22/21 02:10 Pulse Oximetry 99 12/22/21 02:10 MDM - Abdominal Pain Medical Decision Making Patient is a 51-year-old female comes to the ED with right flank pain. Patient has been having chronic right flank pain for the past year but is gotten more acute in the last week. Has a history of kidney stones. She also is complaining of having a little bit of chest pain/anxiety that started upon arrival here in the ED where she got into an altercation with another hospital visitor who had left their dog in their hot car. Chest pain and anxiety symptoms improved once the altercation was over. Denies any other symptoms such as fever, chills, nausea/vomiting, dysuria, hematuria or bowel symptoms. Vitals are stable. Patient has right CVA tenderness but rest of exam is benign. White blood cell count 12.9 but the rest of her labs were unremarkable. UA was clean and no signs of blood or infection noted. CT of abdomen showed bilateral intrarenal calculi but no hydronephrosis or visible obstructing stone noted. Patient was given some IV pain meds and it did help her pain. She is diagnosed with renal colic on right side due to unknown cause. Patient is new to area and I placed an order with case management for patient to be referred to both urology and to get established with a local PCP. She was discharged home with a prescription for some pain and nausea meds. She was given strict return ED precautions given. Patient understood and agreed with plan. Lab Data I reviewed the patient's lab results. : 12/21/21 22:50 12/21/21 22:50 Labs/Radiology: Radiology Impressions Abdomen/Pelvis CT 12/21/21 20:21 IMPRESSION: 1. Bilateral intrarenal calculi. No hydronephrosis of either kidney. No visible ureteral calculus. No perinephric fluid, see above discussion. 2. Possible mild urinary bladder wall thickening, see above. 3. Normal appendix. 4. No visible gallstones by CT. 5. No free air or bowel distention. 6. Small hiatal hernia. Possibly some thickening of the lower esophagus, see above discussion. 7. Other findings discussed above. Laboratory Results WBC 12.9 10^3/uL (4.0-10.0) H 12/21/21 22:50 RBC 5.04 10^6/uL (4.1-5.3) 12/21/21 22:50 Hgb 14.2 g/dL (11.5-15.3) 12/21/21 22:50 Hct 43.8 % (37.0-47.0) 12/21/21 22:50 MCV 86.9 fl (81-99) 12/21/21 22:50 MCH 28.2 pg (28.0-34.0) 12/21/21 22:50 MCHC 32.4 g/dL (30.0-36.0) 12/21/21 22:50 RDW 14.6 % (12.1-15.1) 12/21/21 22:50 Plt Count 356 10^3/cmm (130-400) 12/21/21 22:50 MPV 9.2 fL (7.4-10.4) 12/21/21 22:50 Neut % (Auto) 60.0 % 12/21/21 22:50 Lymph % (Auto) 28.9 % 12/21/21 22:50 [place] % (Auto) 8.2 % 12/21/21 22:50 Eos % (Auto) 1.9 % 12/21/21 22:50 Baso % (Auto) 0.6 % 12/21/21 22:50 Neut # (Auto) 7.71 10^3/uL (1.8-7.7) H 12/21/21 22:50 Lymph # (Auto) 3.7 10^3/uL (0.8-4.8) 12/21/21 22:50 [place] # (Auto) 1.1 10^3/uL (0.2-0.9) H 12/21/21 22:50 Eos # (Auto) 0.2 10^3/uL (0.0-0.8) 12/21/21 22:50 Baso # (Auto) 0.1 10^3/uL (0.0-0.1) 12/21/21 22:50 Nucleated RBC % (auto) 0 % 12/21/21:50 Nucleated RBCs # 0.0 /100WBC 12/21/21 22:50 Sodium 136 mmol/L (136-145) 12/21/21 22:50 Potassium 3.9 mmol/L (3.5-5.1) 12/21/21 22:50 Chloride 101 mmol/L (98-107) 12/21/21 22:50 Carbon Dioxide 25 mmol/L (22-29) 12/21/21 22:50 Anion Gap 13.9 (5-19) 12/21/21 22:50 BUN 17 mg/dL (6-20) 12/21/21 22:50 Creatinine 0.8 mg/dL (0.5-0.9) 12/21/21 22:50 GFR Calculation 75.0 mL/min (90-130) L 12/21/21 22:50 Glucose 87 mg/dL (65-115) 12/21/21 22:50 Calculated Osmolality 283 mOsm/kg (285-295) L 12/21/21 22:50 Calcium 9.0 mg/dL (8.5-10.5) 12/21/21 22:50 Total Bilirubin 0.2 mg/dL (0.15-1.2) 12/21/21 22:50 AST 22 U/L (0-32) 12/21/21 22:50 ALT 18 U/L (0-33) 12/21/21 22:50 Alkaline Phosphatase 54 IU/L (35-105) 12/21/21 22:50 Troponin T Baseline 7 ng/L (0-10) 12/21/21 22:50 Troponin T 120 Minute 9.64 ng/L (0-10) 12/22/21 00:40 Delta Troponin T Not Reportable 12/22/21 00:40 Total Protein 7.4 g/dL (6.6-8.7) 12/21/21 22:50 Albumin 4.0 g/dL (3.5-5.2) 12/21/21 22:50 Globulin 3.4 g/dL (1.3-4.6) 12/21/21 22:50 Lipase 59 U/L (13-60) 12/21/21 22:50 Urine Color Yellow (Yellow) 12/21/21 22:11 Urine Appearance Clear (CLEAR) 12/21/21 22:11 Urine pH 5 (5-7) 12/21/21 22:11 Ur Specific [place] 1.020 (1.005-1.030) 12/21/21 22:11 Urine Protein Neg (Negative) 12/21/21 22:11 Urine Glucose (UA) Norm (Normal) 12/21/21 22:11 Urine Ketones Negative (Negative) 12/21/21 22:11 Urine Blood Neg (Negative) 12/21/21 22:11 Urine Nitrate Negative (Negative) 12/21/21 22:11 Urine Bilirubin Neg (Negative) 12/21/21 22:11 Urine Urobilinogen Norm mg/dL (Negative) 12/21/21 22:11 Ur Leukocyte Esterase Negative (Negative) 12/21/21 22:11 Discharge Plan Discharge Patient Disposition: Home Clinical Impression: Renal colic on right side Condition: Stable Prescriptions: New ondansetron 4 mg tablet,disintegrating 4 mg PO Q8H PRN (Reason: nausea and vomiting) Qty: 15 0RF celecoxib 100 mg capsule 100 mg PO BID PRN (Reason: pain) Qty: 30 0RF No Action amlodipine 2.5 mg tablet 2.5 mg PO DAILY 0RF hydrochlorothiazide 25 mg tablet 25 mg PO DAILY 0RF levothyroxine 25 mcg 25 mcg PO DAILY 0RF spironolactone 25 mg 25 mg PO DAILY 0RF Synthroid 25 mcg 25 mcg PO DAILY 0RF topiramate 25 mg 25 mg PO DAILY 0RF ipratropium bromide 0.02 mcg 0.02 mcg nebulizer PRN 0RF Discharge Orders: Discharge ED (Routine); Ordered 12/22/21 Ordered By: Vinicius Concepcion Discharge Diet: Regular Discharge Activity: Increase activity as tolerated Patient Instructions: Renal Colic (ED), Opioid Safety Activity Restrictions/Additional Instructions: Follow-up with medical provider as directed. Case management should be contacting you in the next several days to set you up with a primary care physician appointment and a appointment with the urologist as well. Take medications as prescribed. Return to the ER or your medical provider if condition worsens. Please read and understand discharge instructions. Thank you for choosing [facility] for your healthcare needs today. Please realize this is an emergency room and that we are providing you with a medical screening exam and this may not be complete and all inclusive of all the testing and or work up that you may need to determine your ailment or severity of your illness. It is very important that you follow up as instructed or that you return to the Emergency Department should you have concerns or if your condition changes or worsens in any way. Coding Level of Care Code ED Agricultural Equipment Design Engineer for Loyda Ochoa Exam Comprehensive
[2021-12-21 22:31] LABS: Bilirubin Urine Neg (Negative); Blood Urine Neg (Negative); Glucose Urine UA Norm (Normal); Ketones Urine Negative (Negative); Leukocyte Esterase Urine Negative (Negative); Nitrate Urine Negative (Negative); Protein Urine Neg (Negative); Urine Appearance Clear (CLEAR); Urine Color Yellow (Yellow); Urobilinogen Urine Norm (Negative); pH Urine 5 (5-7)
[2021-12-21 22:42] VITALS: RESP 18
[2021-12-21] MEDS: ondansetron 2 mg/ML SDV 2 mL 4 MG IVP (22:42)
[2021-12-21] MEDS: morphine 4 mg/mL SDV 1 mL IVP (22:42)
[2021-12-21 22:56] LABS: Basophils # 0.1 10^3/uL (0.0-0.1); Basophils % 0.6 %; Eosinophils # 0.2 10^3/uL (0.0-0.8); Eosinophils % 1.9 %; Hematocrit 43.8 % (37.0-47.0); Hemoglobin 14.2 g/dL (11.5-15.3); Lymphocytes # 3.7 10^3/uL (0.8-4.8); Lymphocytes % 28.9 %; Mean Corpuscular HGB Conc 32.4 g/dL (30.0-36.0); Mean Corpuscular Hemoglobin 28.2 pg (28.0-34.0); Mean Corpuscular Volume 86.9 fl (81-99); Mean Platelet Volume 9.2 fL (7.4-10.4); Monocytes # 1.1 10^3/uL (0.2-0.9); Monocytes % 8.2 %; Neutrophils # 7.71 10^3/uL (1.8-7.7); Nucleated Red Blood Cells % 0 %; Platelet Count 356 10^3/cmm (130-400); Red Blood Count 5.04 10^6/uL (4.1-5.3); Red Cell Distribution Width 14.6 % (12.1-15.1); White Blood Count 12.9 10^3/uL (4.0-10.0)
[2021-12-21 23:13] LABS: Alanine Aminotransferase 18 U/L (0-33); Alkaline Phosphatase 54 IU/L (35-105); Aspartate Amino Transferase 22 U/L (0-32); Blood Urea Nitrogen 17 mg/dL (6-20); Carbon Dioxide 25 mmol/L (22-29); Chloride 101 mmol/L (98-107); Globulin 3.4 g/dL (1.3-4.6); Glucose 87 mg/dL (65-115); Lipase 59 U/L (13-60); Osmolality Calculated 283 mOsm/kg (285-295); Sodium 136 mmol/L (136-145); Total Bilirubin 0.2 mg/dL (0.15-1.2); Total Protein 7.4 g/dL (6.6-8.7)
[2021-12-21 23:14] LABS: Troponin(5th) Baseline 7 ng/L (0-10)
[2021-12-21 23:15] LABS: Anion Gap 13.9 (5-19)
[2021-12-21 23:16] LABS: Potassium 3.9 mmol/L (3.5-5.1)
--- NOTE | 2021-12-22 00:19 | ECG_ITS ---
[facility] Test Date: 2021-12-22 Pat Name: Hilary Acuna Department: Room: Gender: Female Surgery Teacher: : 1970 Requested By: Vinicius Concepcion Order Number: [id number] Fanny MD: Bryan Morley M.D. Measurements Intervals [place] Rate: 74 P: 22 UT: 164 QRS: 2 QRSD: 90 T: 21 QT: 407 QTc: 453 Interpretive Statements SINUS RHYTHM Compared to ECG 12/09/2021 23:44:28 Myocardial infarct finding no longer present Electronically Signed On 12-22-2021 13:01:17 CDT by Bryan Morley M.D. [id number]
[2021-12-22] MEDS: ketorolac 30 mg/mL INJ IVP (00:38)
[2021-12-22 01:17] LABS: Troponin 5 2HR 9.64 ng/L (0-10)
[2021-12-22 01:55] VITALS: RESP 18
[2021-12-22] MEDS: morphine 4 mg/mL SDV 1 mL IVP (01:55)
[2021-12-22] MEDS: HYDROcodone-acetaminophen 5-325 mg Tablet 1 TAB PO (01:56)
[2021-12-22 02:10] VITALS: BP 179/89; PULSE 81; RESP 16; TEMP 36.7; O2SAT 99
--- NOTE | 2021-12-24 12:41 | DCPLANNER ---
Addendum entered by Marti Beckett 03/07/22 10:56: Patient had a follow up appointment scheduled with urology - appointment cancelled Addendum entered by Marti Beckett 01/17/22 15:38: Patient has a follow up appointment scheduled for Friday, February 11, 2022 at 10:[address] Chi. Clinic will call patient with appointment information. Addendum entered by Marti Beckett 12/24/21 12:48: manager cleaning had message to speak with patient about getting established with a primary care physician. manager cleaning called phone number [phone], unable to speak with patient at this time, a voicemail was left for patient to return catalytic case operator phone call. Original Note: manager cleaning had message to schedule a follow up appointment for patient with urology. manager cleaning sent patients information to the front office staff at [facility]. Patients information will be printed and reviewed. Clinic will call patient with appointment information.
== END 2021-12-22 02:13 | disposition home or self-care (01) ==
PROVIDERS: Emergency Medicine; Emergency Provider Physician Assistant
DX: N23 Unspecified renal colic (principal); Z87.442 Personal history of urinary calculi
CPT/HCPCS: 36415; 74176; 80053; 81003; 83690; 84484; 85025; 93005; 96374; 96375; 96376; 99285; J1885; J2270; J2405

== ENCOUNTER 2022-01-29 00:02 | Inpatient (IN) | payer BC, SELFPAY ==
[2022-01-29] VITALS (9 sets, daily range): BP systolic 124–178; BP diastolic 74–125; PULSE 67–83; RESP 16–18; TEMP 36.7–36.9; O2SAT 93–97; BMI 39.3; BMI 41.5
--- NOTE | 2022-01-29 00:27 | CTR_ITS ---
PROCEDURE INFORMATION: Exam: CT Abdomen And Pelvis With Contrast Exam date and time: 01/29/2022 12:50 AM Age: 51 years old Clinical indication: Abdominal pain; Localized; Right lower quadrant (rlq); Prior surgery; Surgery type: Splenectomy; Patient HX: C/O rlq pain; Additional info: Rlq abd pain TECHNIQUE: Imaging protocol: Computed tomography of the abdomen and pelvis with contrast. Radiation optimization: All CT scans at this facility use at least one of these dose optimization techniques: automated exposure control; mA and/or kV adjustment per patient size (includes targeted exams where dose is matched to clinical indication); or iterative reconstruction. Contrast material: OMNI 350; Contrast volume: 95 ml; Contrast route: INTRAVENOUS (IV); COMPARISON: CT kidney stone [id number] 12/21/2021 9:47 PM RADIATION DOSE METRICS: Total DLP (mGy-cm): 1783.87 FINDINGS: Liver: Normal. No mass. Gallbladder and bile ducts: Normal. No calcified stones. No ductal dilation. Pancreas: Normal. No ductal dilation. Spleen: Splenectomy. Probable left upper quadrant splenules. Adrenal glands: Normal. No mass. Kidneys and ureters: Unremarkable parenchyma. No hydronephrosis. Small nonobstructing left kidney stone. Stomach and bowel: Unremarkable. No obstruction. No mucosal thickening. Appendix: Abnormally dilated distal appendix measuring 10 mm with mild periappendiceal stranding. Intraperitoneal space: Unremarkable. No free air. No significant fluid collection. Vasculature: Unremarkable. No abdominal aortic aneurysm. Lymph nodes: Unremarkable. No enlarged lymph nodes. Urinary bladder: Unremarkable as visualized. Reproductive: Unremarkable as visualized. Bones/joints: Unremarkable. No acute fracture. Soft tissues: Unremarkable. CT/CT abdomen pelvis w con* [id number] IMPRESSION: Positive for acute appendicitis. Negative for abscess.
--- NOTE | 2022-01-29 00:28 | W.ED.ABDPA2 ---
HPI - Abdominal Pain General: Chief Complaint: Abdominal Pain Stated Complaint: RT ABD Pain Time Seen by Provider: 01/29/22 00:03 Source: patient Mode of arrival: ambulatory Limitations: no limitations History of Present Illness: 51-year-old female who states she is having right lower quadrant pain since yesterday. She states that its been there all the time but the pain seems to wax and wane. She states that the pain is currently an 8 out of 10 is much worse with movement or deep palpation. 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 She denies any fevers denies any vomiting or diarrhea. She denies any dysuria. Associated Symptoms: Denies chills, dysuria and fever(s) Review of Systems Const: Denies: fever(s), chills, body aches or change in appetite Eyes: Denies: blurry vision or eye discomfort ENMT: Denies: throat pain or dental pain Card: Denies: chest pain Resp: Denies: dyspnea GI: Reports: abdominal pain : Denies: dysuria Musc: Denies: neck pain or back pain Skin/Breast: Denies: rash Neuro: Denies: headache(s) Psych: Denies: depression Jairon/Lymph: Denies: easy bruising All/Imm: Denies: urticaria PFSH ED PFSH: Medical History Coronary artery disease Diastolic congestive heart failure Kidney stone No pertinent family history Social History Smoking and tobacco status: never smoked Physical Exam Const: COMMON NORMALS: no acute distress, patient oriented x3 and healthy appearing HENMT: COMMON NORMALS: normocephalic and atraumatic HEAD & SCALP: normocephalic and atraumatic Eye: COMMON NORMALS: Equal, round and reactive pupils present and EOMs intact bilaterally PUPIL: Yes Equal, round and reactive pupils present Neck/C-Spine: COMMON NORMALS: full ROM and supple Chest: COMMONS NORMALS: normal inspection of the chest and normal palpation of entire chest wall Resp: COMMON NORMALS: normal respiratory effort, No retractions, No use of accessory muscles and clear to auscultation bilaterally AUSCULTATION: clear to auscultation bilaterally Cardio: COMMON NORMALS: regular rate, regular rhythm and No murmurs present (Cardio) RATE: regular rate RHYTHM: regular rhythm GI: COMMON NORMALS: Normal to inspection, nondistended, normoactive bowel sounds present, Soft to palpation and no masses PALPATION: Yes Soft to palpation and Yes Tenderness to palpation present (GI) Details: RLQ Extremity: COMMON NORMALS: normal to inspection and full ROM Neuro: COMMON NORMALS: patient oriented x3, moves all extremities and no focal motor deficits Psych: COMMON NORMALS: mental status grossly normal, Normal thought process present and cooperative THOUGHT PROCESS: Normal thought process present Skin: COMMON NORMALS: no rashes or lesions noted and no wounds GENERAL SKIN EXAM: no rashes or lesions noted Course Vital Signs: Vital signs: Vital Signs Temperature 98.5 F 01/29/22 00:06 Pulse Rate 83 01/29/22 00:06 Respiratory Rate 18 01/29/22 00:06 Blood Pressure 178/125 01/29/22 00:06 Pulse Oximetry 97 01/29/22 00:06 MDM - Abdominal Pain Medical Decision Making Patient presents with right lower quadrant pain CT shows appendicitis. Will start IV antibiotics I spoke to surgeon on-call will admit. Lab Data : 01/29/22 00:40 01/29/22 00:40 Labs/Radiology: Radiology Impressions Abdomen/Pelvis CT 01/29/22 00:27 IMPRESSION: Positive for acute appendicitis. Negative for abscess. ADDENDUM: 01/29/22 0125 THIS REPORT CONTAINS FINDINGS THAT MAY BE CRITICAL TO PATIENT CARE. The findings were verbally communicated via telephone conference with YENNIFER FULLER at 1:23 AM CDT on 01/29/2022. The findings were acknowledged and understood. Laboratory Results WBC 14.1 10^3/uL (4.0-10.0) H 01/29/22 00:40 RBC 5.18 10^6/uL (4.1-5.3) 01/29/22 00:40 Hgb 14.4 g/dL (11.5-15.3) 01/29/22 00:40 Hct 43.4 % (37.0-47.0) 01/29/22 00:40 MCV 83.8 fl (81-99) 01/29/22 00:40 MCH 27.8 pg (28.0-34.0) L 01/29/22 00:40 MCHC 33.2 g/dL (30.0-36.0) 01/29/22 00:40 RDW 14.4 % (12.1-15.1) 01/29/22 00:40 Plt Count 379 10^3/cmm (130-400) 01/29/22 00:40 MPV 10.1 fL (7.4-10.4) 01/29/22 00:40 Neut % (Auto) 61.2 % 01/29/22 00:40 Lymph % (Auto) 26.3 % 01/29/22 00:40 [place] % (Auto) 9.0 % 01/29/22 00:40 Eos % (Auto) 2.0 % 01/29/22 00:40 Baso % (Auto) 0.8 % 01/29/22 00:40 Neut # (Auto) 8.63 10^3/uL (1.8-7.7) H 01/29/22 00:40 Lymph # (Auto) 3.7 10^3/uL (0.8-4.8) 01/29/22 00:40 [place] # (Auto) 1.3 10^3/uL (0.2-0.9) H 01/29/22 00:40 Eos # (Auto) 0.3 10^3/uL (0.0-0.8) 01/29/22 00:40 Baso # (Auto) 0.1 10^3/uL (0.0-0.1) 01/29/22 00:40 Nucleated RBC % (auto) 0 % 01/29/22 00:40 Nucleated RBCs # 0.0 /100WBC 01/29/22 00:40 Sodium Cancelled 01/29/22 00:40 Potassium Cancelled 01/29/22 00:40 Chloride Cancelled 01/29/22 00:40 Carbon Dioxide Cancelled 01/29/22 00:40 Anion Gap Cancelled 01/29/22 00:40 BUN Cancelled 01/29/22 00:40 Creatinine Cancelled 01/29/22 00:40 GFR Calculation Cancelled 01/29/22 00:40 Glucose Cancelled 01/29/22 00:40 Calculated Osmolality Cancelled 01/29/22 00:40 Calcium Cancelled 01/29/22 00:40 Total Bilirubin Cancelled 01/29/22 00:40 AST Cancelled 01/29/22 00:40 ALT Cancelled 01/29/22 00:40 Alkaline Phosphatase Cancelled 01/29/22 00:40 Total Protein Cancelled 01/29/22 00:40 Albumin Cancelled 01/29/22 00:40 Globulin Cancelled 01/29/22 00:40 Lipase Cancelled 01/29/22 00:40 Discharge Plan Discharge Patient Disposition: Admitted As Inpatient Clinical Impression: Acute appendicitis Condition: Stable Coding Level of Care Code ED Patient Accounts Coordinator for Chg Fwd Exam Comprehensive
[2022-01-29] MEDS: iohexol 350 mg/mL 100 mL Btl IV (00:45)
[2022-01-29 00:47] LABS: Basophils # 0.1 10^3/uL (0.0-0.1); Basophils % 0.8 %; Eosinophils # 0.3 10^3/uL (0.0-0.8); Hematocrit 43.4 % (37.0-47.0); Hemoglobin 14.4 g/dL (11.5-15.3); Lymphocytes # 3.7 10^3/uL (0.8-4.8); Lymphocytes % 26.3 %; Mean Corpuscular HGB Conc 33.2 g/dL (30.0-36.0); Mean Corpuscular Hemoglobin 27.8 pg (28.0-34.0); Mean Corpuscular Volume 83.8 fl (81-99); Mean Platelet Volume 10.1 fL (7.4-10.4); Monocytes # 1.3 10^3/uL (0.2-0.9); Neutrophils # 8.63 10^3/uL (1.8-7.7); Neutrophils % 61.2 %; Nucleated Red Blood Cells % 0 %; Platelet Count 379 10^3/cmm (130-400); Red Blood Count 5.18 10^6/uL (4.1-5.3); Red Cell Distribution Width 14.4 % (12.1-15.1); White Blood Count 14.1 10^3/uL (4.0-10.0)
[2022-01-29] MEDS: ondansetron 2 mg/ML SDV 2 mL 4 MG IVP (01:17)
[2022-01-29] MEDS: morphine 4 mg/mL SDV 1 mL IVP ×2 (01:17→22:25)
[2022-01-29] MEDS: sodium chloride 0.9% 1,000 ML 999 ML IV (01:18)
[2022-01-29 01:33] LABS: Charge for UA Resulting for Rev
[2022-01-29 01:36] LABS: Bilirubin Urine Neg (Negative); Blood Urine Neg (Negative); Glucose Urine UA Norm (Normal); Ketones Urine Negative (Negative); Leukocyte Esterase Urine Negative (Negative); Nitrate Urine Negative (Negative); Protein Urine Neg (Negative); Urine Appearance Clear (CLEAR); Urine Color Yellow (Yellow); Urobilinogen Urine Norm (Negative); pH Urine 5 (5-7)
[2022-01-29] MEDS: piperacillin-tazobactam 3.375 GM in sodium chloride 0.9% (plus) 50 ML IV ×2 (01:41→09:03)
[2022-01-29 01:51] LABS: Add Urine Microscopic? NO
[2022-01-29 02:10] LABS: Alanine Aminotransferase 19 U/L (0-33); Albumin Level 3.8 g/dL (3.5-5.2); Alkaline Phosphatase 52 IU/L (35-105); Anion Gap 14.2 (5-19); Aspartate Amino Transferase 19 U/L (0-32); Blood Urea Nitrogen 14 mg/dL (6-20); Calcium 8.8 mg/dL (8.5-10.5); Carbon Dioxide 24 mmol/L (22-29); Chloride 104 mmol/L (98-107); Globulin 3.1 g/dL (1.3-4.6); Glomerular Filtration Rate 87.5 mL/min (90-130); Glucose 93 mg/dL (65-115); Lipase 36 U/L (13-60); Osmolality Calculated 286 mOsm/kg (285-295); Potassium 4.2 mmol/L (3.5-5.1); Sodium 138 mmol/L (136-145); Total Bilirubin 0.2 mg/dL (0.15-1.2); Total Protein 6.9 g/dL (6.6-8.7)
[2022-01-29] MEDS: sodium chloride 0.9% 1,000 ML 50 ML IV ×2 (05:36→17:39)
--- NOTE | 2022-01-29 07:06 | PM.HP ---
Providers/Chief Complaint Admitting Physician: Fady Heaton DO Chief Complaint: RT ABD Pain History of Present Illness Hilary Pappas is a very pleasant 51-year-old female who presented to the hospital with a 3-day history of right lower quadrant abdominal pain. She reports that she had similar pain about 1 month ago. At that time she reported to the hospital and underwent a CT of the abdomen which did not reveal the cause of her pain. She was prescribed azithromycin at that time, and her symptoms improved. This time her pain started 3 days ago. The pain improved but then got worse last night. The pain is sharp and constant, located in the right lower quadrant. Pain does not radiate. Pain is moderate to severe. Palpation makes the pain worse. Narcotics make the pain better. She reports nausea but no emesis. Denies diarrhea, constipation, fever, chills. CT abdomen pelvis was read as acute appendicitis. She is refusing surgery at this time. She reports that she had a splenectomy and that she does not tolerate surgery well. Review of Systems General: Reports: 10 or more systems reviewed and unremarkable except in HPI and below Medications/Allergies Home Medications Medication Instructions Recorded Confirmed Last Taken Type Synthroid 25 mcg PO DAILY 03/14/20 01/21/22 03/13/20 08:00 History amlodipine 2.5 mg tablet 2.5 mg PO DAILY 03/14/20 01/21/22 03/14/20 History 0800 hydrochlorothiazide 25 mg tablet 25 mg PO DAILY 03/14/20 01/21/22 03/14/20 History 25 mg ipratropium bromide 0.02 mcg NEBULIZER PRN 03/14/20 01/21/22 Unknown History levothyroxine 25 mcg PO DAILY 03/14/20 01/21/22 03/13/20 08:00 History spironolactone 25 mg PO DAILY 03/14/20 01/21/22 03/13/20 08:00 History topiramate 25 mg PO DAILY 03/14/20 01/21/22 03/13/20 History celecoxib 100 mg capsule 100 mg PO BID PRN #30 cap 12/22/21 01/21/22 Unknown Rx ondansetron 4 mg disintegrating 4 mg PO Q8H PRN #15 tab 12/22/21 01/21/22 Unknown Rx tablet Allergies Allergy/AdvReac Type Severity Reaction Status Date / Time acetaminophen [From Tylenol] Allergy ALGY-Anaphy Verified 01/21/22 09:32 laxis nitroglycerin Allergy ADR-Headach Verified 01/21/22 09:32 e Penicillins Allergy ALGY-Redness Verified 01/29/22 02:48 of Skin walnut Allergy Unknown Verified 01/21/22 09:32 PFSH Acute PFSH: Medical History Coronary artery disease Diastolic congestive heart failure Kidney stone No pertinent family history Surgical History H/O abdominoplasty H/O splenectomy Social History Smoking and tobacco status: never smoked Female Reproductive History: Date of last menstrual period: 01/08/22 Vitals/I&O/Wt Last Vital Signs Temp 98.5 F 01/29/22 02:53 Pulse 70 01/29/22 02:53 Resp 18 01/29/22 02:53 BP 157/94 01/29/22 02:53 Pulse Ox 95 01/29/22 02:53 01/28/22 01/29/22 01/29/22 22:59 06:59 14:59 Intake Total 1050 / 1050 Balance 1050 / 1050 Weight last 48 hrs Weight 249 lb 9.6 oz Weight 240 lb Physical Exam Narrative: General : Patient is well developed , no acute distress, oriented x3 Head : Normal cephalic, a-traumatic. Ears : Pinnae and external canal are normal. Hearing is normal. Eyes : PERRLA, Sclera and injection are normal. No conjunctival discharge. Nose : Mucous membranes are without erythema. Throat : buccal mucosa is normal, gums are without significant recession or hypertrophy. Lungs : Equal chest rise bilaterally, no use of accessory muscles, trachea is midline. Cor : Rate and rhythm are normal. Abdomen : Soft, ND, mild right lower quadrant tenderness, negative Rovsing's, no g/r/m Extremities : No edema, no cyanosis or clubbing, dorsalis pedis pulses are present bilaterally, non-tender to palpation of calves. Upper extremities are normal bilaterally. Back : non-tender to palpation, no CVA tenderness. Neuro : CN II - XII intact, Upper and lower extremities have equal and full strength Data : 01/29/22 00:40 01/29/22 01:47 CT Abd/Pel: My impression: Very mild acute very mild acute appendicitis A&P Assessment and plan (1) Acute appendicitis: Status: Acute Plan At this time patient is she reports that she read a study in [place] that showed success with antibiotics alone. I think it is likely that she had mild early acute appendicitis a month ago that somewhat resolved with antibiotics and has since recurred. I recommend surgery at this time however she is refusing. We will proceed with antibiotic therapy at this time. I had a lengthy conversation with her, and she is aware that even if antibiotics alone work there is a very good chance that appendicitis recurs in the future. If she gets worse we will have to have another discussion about surgery. I made it clear that appendicitis not treated appropriately, with surgery, can lead to severe complications and even . 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
[2022-01-29] MEDS: pantoprazole 40 mg SDV IVP (09:03)
--- NOTE | 2022-01-29 09:26 | PC.PHAR ---
pt states she has not taken any of her medications since December 02 - pt states she will continue her meds once she is cleared
[2022-01-29] MEDS: diphenhydrAMINE 25 mg Capsule PO ×2 (11:16→20:27)
[2022-01-29] MEDS: CELEcoxib 100 mg Capsule PO (11:21)
[2022-01-29] MEDS: ciprofloxacin 400 MG/200 ML PREMIX 200 MG IV ×2 (11:39→22:24)
[2022-01-29] MEDS: metroNIDAZOLE IV 500 MG/100 ML PREMIX 100 MG IV ×2 (11:40→20:21)
--- NOTE | 2022-01-29 11:56 | PC.CHAP ---
Pastoral Care Encounter/Spiritual Assessment Type of Contact [] Declined wardrobe custodian visit [] Patient/Family/Request visit [] Outpatient visit [] Follow-up visit [] Physician referral [] Code/Alert [x] Routine visit [] Staff referral [] Actively dying [] Patient sleeping [] Family support [] [] Out of room [] Palliative care [] [] Receiving care in room [] Pre-surgical visit [] Trauma [] Long length of stay [] ICU visit [] Other: Relational/Emotional Strength [x] Patient feels connected with others/family/visitors/staff [] Distress [] Loneliness/isolation [] Abandonment Spirituality of Patient [x] Person of [place] [x] Attends Roman Catholic of their [place] [x] Believes in Prayer [x] Reads Bible or Hindu materials [] There are Spiritual issues to be addressed Park Ranger Interventions [x] Prayer [x] Active listening [x] Non-anxious presence [x] Spiritual/emotional support [] Crisis/trauma care [] Spiritual counseling [] Bereavement support [] Provided bereavement packet [] Provided Bible/devotional materials [] Provided toy/stuffed animal, coloring book to patient or family member [] Provided Communion [] Anointing/[place] [] Salvation [x] Completed spiritual assessment [] Other: Impact on Illness or Injury [] Angry [] Fearful [] Anxious [] Often cries [] Exhaustion [] Unable to work [] Unable to attend restorationism [] Unable to walk/stand [] Unable to read [] Unable to drive [] Unable to eat/drink [] Unable to sleep [] Unable to be with family [] Patient intubated [] Other: Summary Time spent with patient 10 min
[2022-01-30] VITALS (7 sets, daily range): BP systolic 126–171; BP diastolic 70–95; PULSE 62–77; RESP 16–22; TEMP 36.4–36.7; O2SAT 92–98
[2022-01-30] MEDS: metroNIDAZOLE IV 500 MG/100 ML PREMIX 100 MG IV ×3 (03:40→22:03)
[2022-01-30 04:29] LABS: Basophils # 0.1 10^3/uL (0.0-0.1); Basophils % 0.7 %; Eosinophils # 0.3 10^3/uL (0.0-0.8); Eosinophils % 2.7 %; Hematocrit 39.5 % (37.0-47.0); Hemoglobin 12.8 g/dL (11.5-15.3); Lymphocytes # 3.1 10^3/uL (0.8-4.8); Lymphocytes % 25.7 %; Mean Corpuscular HGB Conc 32.4 g/dL (30.0-36.0); Mean Corpuscular Hemoglobin 27.7 pg (28.0-34.0); Mean Corpuscular Volume 85.5 fl (81-99); Mean Platelet Volume 9.3 fL (7.4-10.4); Monocytes # 1.3 10^3/uL (0.2-0.9); Monocytes % 10.9 %; Neutrophils # 7.07 10^3/uL (1.8-7.7); Neutrophils % 59.4 %; Nucleated Red Blood Cells % 0 %; Platelet Count 314 10^3/cmm (130-400); Red Blood Count 4.62 10^6/uL (4.1-5.3); Red Cell Distribution Width 14.3 % (12.1-15.1); White Blood Count 11.9 10^3/uL (4.0-10.0)
[2022-01-30 04:51] LABS: Anion Gap 11.6 (5-19); Blood Urea Nitrogen 14 mg/dL (6-20); Calcium 8.1 mg/dL (8.5-10.5); Carbon Dioxide 24 mmol/L (22-29); Chloride 108 mmol/L (98-107); Glomerular Filtration Rate 65.5 mL/min (90-130); Glucose 94 mg/dL (65-115); Osmolality Calculated 288 mOsm/kg (285-295); Phosphorus 3.3 mg/dL (2.5-4.5); Potassium 4.6 mmol/L (3.5-5.1); Sodium 139 mmol/L (136-145)
[2022-01-30] MEDS: pantoprazole 40 mg SDV IVP (10:19)
[2022-01-30] MEDS: sodium chloride 0.9% 1,000 ML 50 ML IV (10:19)
[2022-01-30] MEDS: ciprofloxacin 400 MG/200 ML PREMIX 200 MG IV ×2 (11:26→23:24)
[2022-01-30] MEDS: morphine 4 mg/mL SDV 1 mL IVP (19:23)
--- NOTE | 2022-01-30 19:34 | PC.NURSE ---
Patient's reported to nurses station approx 1910 stating patient suddenly complained of chest pain. Upon entrance into the room patient was slightly diaphoretic in 10/10 pain. 176/113, P85, 96% O2 on room air. 98.3 temp. Patient denies any new abdominal pain, no radiation of pain or sudden pops or other sudden concerns other than just sub-sternal chest pain. EKG performed. No changes noted. Patient given 4 of Morphine IV. Patient reports pain improved. Dr Heaton notified, order received for Hydralazine 25mg PO Q8H. Order read back and placed. jordi Miguel LPN at bedside as well. Report exchanged at this time.
--- NOTE | 2022-01-30 21:53 | P.PN_ITS ---
Subjective Subjective: Patient reports that her pain has improved. She denies any nausea or vomiting. Passing flatus and having bowel movements. Vitals/I&O/Wt Last Vital Signs Temp 98.1 F 01/30/22 20:00 Pulse 77 01/30/22 20:00 Resp 18 01/30/22 20:00 BP 168/91 01/30/22 20:00 Pulse Ox 97 01/30/22 20:00 01/30/22 01/30/22 01/30/22 06:59 14:59 22:59 Intake Total 300 / 2332.5 1033.333 / 1033.333 100 / 1133.333 Output Total 280 / 280 Balance 20 / 2052.5 1033.333 / 1033.333 100 / 1133.333 Weight last 48 hrs Weight 249 lb 9.6 oz Weight 240 lb Physical Exam Narrative: General : Patient is well developed , no acute distress, oriented x3 Head : Normal cephalic, a-traumatic. Ears : Pinnae and external canal are normal. Hearing is normal. Eyes : PERRLA, Sclera and injection are normal. No conjunctival discharge. Nose : Mucous membranes are without erythema. Throat : buccal mucosa is normal, gums are without significant recession or hypertrophy. Lungs : Equal chest rise bilaterally, no use of accessory muscles, trachea is midline. Cor : Rate and rhythm are normal. Abdomen : Soft, ND, mild right lower quadrant tenderness, no g/r/m Extremities : No edema, no cyanosis or clubbing, dorsalis pedis pulses are present bilaterally, non-tender to palpation of calves. Upper extremities are normal bilaterally. Back : non-tender to palpation, no CVA tenderness. Neuro : CN II - XII intact, Upper and lower extremities have equal and full strength Data : 01/31/22 02:59 01/31/22 02:59 A&P Assessment and plan (1) Acute appendicitis: Status: Acute Plan I continue to recommend appendectomy, however patient is refusing. We will trial antibiotic treatment for now. She will need to complete a 14-day course of antibiotics at home upon discharge if she does not receive appendectomy. I will continue to monitor her for improvement. Once she has significantly improved I will discharge her home on antibiotics. If she does not improve or worsen I will have to have another conversation with her about appendectomy. 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
[2022-01-30] MEDS: hyDRALAzine 25 mg Tablet PO (22:03)
[2022-01-30] MEDS: sodium chloride 0.9% 1,000 ML 125 ML IV (22:08)
[2022-01-30] MEDS: diphenhydrAMINE 25 mg Capsule PO (22:08)
[2022-01-31] VITALS: BP 152/84; PULSE 70; RESP 17; TEMP 36.7; O2SAT 95
[2022-01-31 03:42] LABS: Basophils # 0.1 10^3/uL (0.0-0.1); Basophils % 0.7 %; Eosinophils # 0.4 10^3/uL (0.0-0.8); Eosinophils % 3.3 %; Hematocrit 41.5 % (37.0-47.0); Hemoglobin 13.5 g/dL (11.5-15.3); Lymphocytes # 3.5 10^3/uL (0.8-4.8); Lymphocytes % 28.9 %; Mean Corpuscular HGB Conc 32.5 g/dL (30.0-36.0); Mean Corpuscular Hemoglobin 27.6 pg (28.0-34.0); Mean Corpuscular Volume 84.7 fl (81-99); Mean Platelet Volume 9.5 fL (7.4-10.4); Monocytes # 1.2 10^3/uL (0.2-0.9); Neutrophils % 56.5 %; Nucleated Red Blood Cells % 0 %; Platelet Count 332 10^3/cmm (130-400); Red Cell Distribution Width 14.1 % (12.1-15.1)
[2022-01-31 04:00] VITALS: BP 146/80; PULSE 66; RESP 17; O2SAT 93
[2022-01-31 04:07] LABS: Anion Gap 14.4 (5-19); Blood Urea Nitrogen 11 mg/dL (6-20); Calcium 8.4 mg/dL (8.5-10.5); Carbon Dioxide 22 mmol/L (22-29); Chloride 107 mmol/L (98-107); Glucose 99 mg/dL (65-115); Osmolality Calculated 287 mOsm/kg (285-295); Phosphorus 2.6 mg/dL (2.5-4.5); Potassium 4.4 mmol/L (3.5-5.1); Sodium 139 mmol/L (136-145)
[2022-01-31] MEDS: metroNIDAZOLE IV 500 MG/100 ML PREMIX 100 MG IV (05:06)
[2022-01-31] MEDS: hyDRALAzine 25 mg Tablet PO (05:06)
[2022-01-31] MEDS: pantoprazole 40 mg SDV IVP (05:54)
[2022-01-31 07:50] VITALS: BP 133/79; PULSE 73; RESP 17; TEMP 36.6; O2SAT 96
--- NOTE | 2022-01-31 11:19 | PC.NURSE ---
Attempted to flush patient's IV prior to administrated of cipro and was unsuccessful. Patient refused IV fluids and refused new IV start. Patient reports she would like to go home and does not wish to continue IV therapy or fluids.
[2022-01-31 11:42] VITALS: BP 172/100; PULSE 81; RESP 18; O2SAT 97
--- NOTE | 2022-01-31 11:43 | PC.NURSE ---
nurse was notified of high blood pressure
[2022-01-31 13:37] LABS: Basophils # 0.1 10^3/uL (0.0-0.1); Basophils % 0.5 %; Eosinophils # 0.3 10^3/uL (0.0-0.8); Eosinophils % 2.2 %; Hematocrit 44.3 % (37.0-47.0); Hemoglobin 14.7 g/dL (11.5-15.3); Lymphocytes # 2.4 10^3/uL (0.8-4.8); Lymphocytes % 20.1 %; Mean Corpuscular HGB Conc 33.2 g/dL (30.0-36.0); Mean Corpuscular Hemoglobin 27.9 pg (28.0-34.0); Mean Corpuscular Volume 84.1 fl (81-99); Mean Platelet Volume 9.1 fL (7.4-10.4); Monocytes # 0.9 10^3/uL (0.2-0.9); Monocytes % 7.5 %; Neutrophils # 8.32 10^3/uL (1.8-7.7); Neutrophils % 69.2 %; Nucleated Red Blood Cells % 0 %; Platelet Count 334 10^3/cmm (130-400); Red Blood Count 5.27 10^6/uL (4.1-5.3)
--- NOTE | 2022-01-31 14:40 | PM.DCS ---
Discharge Providers Date of Admission: 01/29/22 01:25 Date of Discharge: January 31, 2022 Attending Provider at Admission: Trice Delatorre MD Attending Provider at Discharge: Fady Heaton DO Diagnoses at Discharge Discharge Diagnosis (1) Acute appendicitis: Status: Acute Reason for Visit Reason for Visit: RT ABD Pain Brief History: Acute appendicitis Hospital Course Hospital Course This is a 48 she refused appendectomy and only desired antibiotic therapy. She was quoting a study. Her pain slightly improved during hospitalization and her white blood cell count slightly improved as well. After 2 days in the hospital she was refusing IV and demanding to be discharged. She was discharged home with enough antibiotics to complete a 14-day course. She was given explicit instructions to return to the ER if her pain gets worse or she develops fever. She was given appropriate follow-up appointments. Physical Exam Narrative: general : Patient is well developed , no acute distress, oriented x3 Head : Normal cephalic, a-traumatic. Ears : Pinnae and external canal are normal. Hearing is normal. Eyes : PERRLA, Sclera and injection are normal. No conjunctival discharge. Nose : Mucous membranes are without erythema. Throat : buccal mucosa is normal, gums are without significant recession or hypertrophy. Lungs : Equal chest rise bilaterally, no use of accessory muscles, trachea is midline. Cor : Rate and rhythm are normal. Abdomen : Soft, ND, mild right lower quadrant tenderness, no g/r/m Extremities : No edema, no cyanosis or clubbing, dorsalis pedis pulses are present bilaterally, non-tender to palpation of calves. Upper extremities are normal bilaterally. Back : non-tender to palpation, no CVA tenderness. Neuro : CN II - XII intact, Upper and lower extremities have equal and full strength Discharge Data Studies Completed and Pending Completed Studies During Hospitalization Category Date Time Status CT abdomen pelvis w con* [id number] Urgent Cat Scan 01/29/22 00:27 Completed Pending at discharge Category Date Time Status Basic Metabolic Panel AM LABS Lab 02/01/22 04:00 Ordered Complete Blood Count w/Auto AM LABS Lab 02/01/22 04:00 Ordered Magnesium AM LABS Lab 02/01/22 04:00 Ordered Phosphorus AM LABS Lab 02/01/22 04:00 Ordered Radiology Impressions Abdomen/Pelvis CT 01/29/22 00:27 IMPRESSION: Positive for acute appendicitis. Negative for abscess. ADDENDUM: 01/29/22 0125 THIS REPORT CONTAINS FINDINGS THAT MAY BE CRITICAL TO PATIENT CARE. The findings were verbally communicated via telephone conference with YENNIFER FULLER at 1:23 AM CDT on 01/29/2022. The findings were acknowledged and understood. Laboratory Results WBC 12.0 10^3/uL (4.0-10.0) H 01/31/22 13:26 RBC 5.27 10^6/uL (4.1-5.3) 01/31/22 13:26 Hgb 14.7 g/dL (11.5-15.3) 01/31/22 13:26 Hct 44.3 % (37.0-47.0) 01/31/22 13:26 MCV 84.1 fl (81-99) 01/31/22 13:26 MCH 27.9 pg (28.0-34.0) L 01/31/22 13:26 MCHC 33.2 g/dL (30.0-36.0) 01/31/22 13:26 RDW 14.0 % (12.1-15.1) 01/31/22 13:26 Plt Count 334 10^3/cmm (130-400) 01/31/22 13:26 MPV 9.1 fL (7.4-10.4) 01/31/22 13:26 Neut % (Auto) 69.2 % 01/31/22 13:26 Lymph % (Auto) 20.1 % 01/31/22 13:26 [place] % (Auto) 7.5 % 01/31/22 13:26 Eos % (Auto) 2.2 % 01/31/22 13:26 Baso % (Auto) 0.5 % 01/31/22 13:26 Neut # (Auto) 8.32 10^3/uL (1.8-7.7) H 01/31/22 13:26 Lymph # (Auto) 2.4 10^3/uL (0.8-4.8) 01/31/22 13:26 Woodruff # (Auto) 0.9 10^3/uL (0.2-0.9) 01/31/22 13:26 Eos # (Auto) 0.3 10^3/uL (0.0-0.8) 01/31/22 13:26 Baso # (Auto) 0.1 10^3/uL (0.0-0.1) 01/31/22 13:26 Nucleated RBC % (auto) 0 % 01/31/22 13:26 Nucleated RBCs # 0.0 /100WBC 01/31/22 13:26 Sodium 139 mmol/L (136-145) 01/31/22 02:59 Potassium 4.4 mmol/L (3.5-5.1) 01/31/22 02:59 Chloride 107 mmol/L (98-107) 01/31/22 02:59 Carbon Dioxide 22 mmol/L (22-29) 01/31/22 02:59 Anion Gap 14.4 (5-19) 01/31/22 02:59 BUN 11 mg/dL (6-20) 01/31/22 02:59 Creatinine 0.8 mg/dL (0.5-0.9) 01/31/22 02:59 GFR Calculation 75.0 mL/min (90-130) L 01/31/22 02:59 Glucose 99 mg/dL (65-115) 01/31/22 02:59 Calculated Osmolality 287 mOsm/kg (285-295) 01/31/22 02:59 Calcium 8.4 mg/dL (8.5-10.5) L 01/31/22 02:59 Phosphorus 2.6 mg/dL (2.5-4.5) 01/31/22 02:59 Magnesium 2.0 mg/dL (1.7-2.3) 01/31/22 02:59 Total Bilirubin 0.2 mg/dL (0.15-1.2) 01/29/22 01:47 AST 19 U/L (0-32) 01/29/22 01:47 ALT 19 U/L (0-33) 01/29/22 01:47 Alkaline Phosphatase 52 IU/L (35-105) 01/29/22 01:47 Total Protein 6.9 g/dL (6.6-8.7) 01/29/22 01:47 Albumin 3.8 g/dL (3.5-5.2) 01/29/22 01:47 Globulin 3.1 g/dL (1.3-4.6) 01/29/22 01:47 Lipase 36 U/L (13-60) 01/29/22 01:47 Urine Color Yellow (Yellow) 01/29/22 00:58 Urine Appearance Clear (CLEAR) 01/29/22 00:58 Urine pH 5 (5-7) 01/29/22 00:58 Ur Specific [place] 1.020 (1.005-1.030) 01/29/22 00:58 Urine Protein Neg (Negative) 01/29/22 00:58 Urine Glucose (UA) Norm (Normal) 01/29/22 00:58 Urine Ketones Negative (Negative) 01/29/22 00:58 Urine Blood Neg (Negative) 01/29/22 00:58 Urine Nitrate Negative (Negative) 01/29/22 00:58 Urine Bilirubin Neg (Negative) 01/29/22 00:58 Urine Urobilinogen Norm mg/dL (Negative) 01/29/22 00:58 Ur Leukocyte Esterase Negative (Negative) 01/29/22 00:58 Urine RBC Cancelled 01/29/22 00:58 Urine WBC Cancelled 01/29/22 00:58 Ur Squamous Epith Cells Cancelled 01/29/22 00:58 Ur Transition Epith Cell Cancelled 01/29/22 00:58 Ur Renal Epithelial Cell Cancelled 01/29/22 00:58 Calcium Oxalate Crystal Cancelled 01/29/22 00:58 Uric Acid Crystals Cancelled 01/29/22 00:58 Triple Phos Crystals Cancelled 01/29/22 00:58 Other Crystals Cancelled 01/29/22 00:58 Amorphous Sediment Cancelled 01/29/22 00:58 Urine Bacteria Cancelled 01/29/22 00:58 Hyaline Casts Cancelled 01/29/22 00:58 Fine Granular Casts Cancelled 01/29/22 00:58 Coarse Granular Casts Cancelled 01/29/22 00:58 RBC Casts Cancelled 01/29/22 00:58 Other Casts Cancelled 01/29/22 00:58 Urine Mucus Cancelled 01/29/22 00:58 Urine Trichomonas Cancelled 01/29/22 00:58 Urine Yeast Cancelled 01/29/22 00:58 Urine Sperm Cancelled 01/29/22 00:58 Ur Oval Fat Bodies Cancelled 01/29/22 00:58 Vitals Last Vital Signs Temp 97.9 F 01/31/22 07:50 Pulse 81 01/31/22 11:42 Resp 18 01/31/22 11:42 BP 172/100 01/31/22 11:42 Pulse Ox 97 01/31/22 11:42 Discharge Plan Discharge Patient Disposition: Home Condition: Stable Prescriptions: New hydrocodone-acetaminophen 5-325 mg tablet 1 tab PO Q8H PRN (Reason: pain) Qty: 10 0RF ciprofloxacin HCl 500 mg tablet 500 mg PO Q12H Qty: 24 0RF metronidazole 500 mg tablet 500 mg PO Q8H Qty: 36 0RF Continued amlodipine 2.5 mg tablet 2.5 mg PO DAILY 0RF hydrochlorothiazide 25 mg tablet 25 mg PO DAILY 0RF levothyroxine 25 mcg Tablet 25 mcg PO DAILY 0RF spironolactone 25 mg Tablet 50 mg PO DAILY 0RF topiramate 25 mg Tablet 25 mg PO BID 0RF phentermine 37.5 mg tablet 37.5 mg PO DAILY 0RF ondansetron 4 mg tablet,disintegrating 4 mg PO Q8H PRN (Reason: nausea and vomiting) Qty: 15 0RF celecoxib 100 mg capsule 100 mg PO BID PRN (Reason: pain) Qty: 30 0RF Discharge Orders: Discharge Order (Routine); Ordered 01/31/22 Ordered By: Fady Heaton Referrals: Arthur Li DO [Physician] - 02/08/22 3:00 pm (You have a new patinet appoinment with Dr. David on February 08, 2022 at 3:00 pm. If you have any questions or need to reschedule please call them at [phone].) Fady Heaton DO [Physician] - 2 weeks Discharge Diet: Advance as tolerated Discharge Activity: Resume usual activity Patient Instructions: Appendicitis (GEN), Opioid Safety, Post Anesthesia Care Discharge Attestations Time Spent in Discharge Care*: less than 30 min Quality Metrics Clinical Quality Measures [ No reported AMI, CVA or VTE this stay] Coding Level of Care Code Acute Chg FW DC note Diagnoses Acute appendicitis K35.80
[2022-01-31 15:41] VITALS: BP 184/83; PULSE 68; RESP 16; TEMP 36.2; O2SAT 95
[2022-01-31 18:52] VITALS: BP 184/83; PULSE 68; RESP 16; TEMP 36.2; O2SAT 95
== END 2022-01-31 17:24 | disposition home or self-care (01) | DRG 394 ==
LOC: ER 01:29 → MEDSURG 02:34
PROVIDERS: Admitting Provider Student in an Organized Health Care Education/Training Program; Emergency Provider Emergency Medicine; Visit Provider Surgery
DX: K35.80 Unspecified acute appendicitis (principal); I50.30 Unspecified diastolic (congestive) heart failure; I25.10 Atherosclerotic heart disease of native coronary artery without angina pectoris
CPT/HCPCS: 36415; 74177; 80048; 80053; 81003; 83690; 83735; 84100; 85025; 96365; 96375; 99285; C9113; J0330; J0744; J1100; J1200; J2250; J2270; J2405; J2543; J2704; J2710; J3010; J3490; J7030; Q9967; S0030

== ENCOUNTER 2022-07-09 02:45 | Emergency (ER) | payer BC, SELFPAY ==
[2022-07-09 02:53] VITALS: BP 193/107; PULSE 66; RESP 16; TEMP 36.6; O2SAT 96; BMI 370.2
--- NOTE | 2022-07-09 02:55 | CTR_ITS ---
PROCEDURE INFORMATION: Exam: CT Abdomen And Pelvis Without Contrast Exam date and time: 07/09/2022 3:02 AM Age: 52 years old Clinical indication: Abdominal pain; Prior surgery; Surgery type: Splenectomy; Patient HX: C/O left flank pain; Additional info: L flank pain TECHNIQUE: Imaging protocol: Computed tomography of the abdomen and pelvis without contrast. Radiation optimization: All CT scans at this facility use at least one of these dose optimization techniques: automated exposure control; mA and/or kV adjustment per patient size (includes targeted exams where dose is matched to clinical indication); or iterative reconstruction. COMPARISON: 1. CT abdomen pelvis w con* [id number] 01/29/2022 12:50 AM 2. Comparison more. CT kidney stone 12/21/2021 9:48 PM RADIATION DOSE METRICS: Total DLP (mGy-cm): 943.52 FINDINGS: Lungs: The visualized lung bases show mosaic attenuation as seen in small airways disease. There is no focal pulmonary consolidation. Diaphragm: There is a small sliding hiatal hernia. Liver: The liver is normal in size and homogeneous density. Gallbladder and bile ducts: The gallbladder is normal. No gallstones are identified. There is no evidence of biliary ductal dilation. Pancreas: The pancreas is normal. Spleen: There are surgical clips in the left upper quadrant, area of the splenic bed, consistent with history of splenectomy. There are 2 areas of residual splenic tissue in the left subdiaphragmatic space measuring 3.6 and 1.5 cm. These may either represent residual splenules or splenosis. Adrenal glands: The adrenal glands are normal. Kidneys and ureters: There is no hydronephrosis. No renal or obstructive ureteral calculi are visualized.The nonobstructive left renal calculus seen in the comparison examination of 12/21/2021 is no longer identified. Stomach and bowel: There is no evidence of small bowel or colonic obstruction. There is mild diverticulosis of the distal colon without acute diverticulitis. Appendix: No evidence of appendicitis. Intraperitoneal space: No free air. No significant fluid collection. Vasculature: No abdominal aortic aneurysm. Lymph nodes: There are nonenlarged, nonspecific mesenteric and retroperitoneal lymph nodes. Urinary bladder: The bladder shows a normal contour and is free of calcific opacities. Reproductive: Unremarkable as visualized. Bones/joints: No acute fracture. No evidence of bone destruction. There are mild anterior and lateral osteophytes at multiple levels in the spine. Soft tissues: Unremarkable. CT/CT kidney stone [id number] IMPRESSION: 1. 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 2. No hydronephrosis. No renal or ureteral calculi identified. The previously noted nonobstructive left renal calculus has passed. 3. A small hiatal hernia. 4. Mild diverticulosis of the descending and sigmoid colon without acute diverticulitis.
--- NOTE | 2022-07-09 02:55 | ED_ITS ---
HPI - Abdominal Pain General: Chief Complaint: Urogenital-Female Stated Complaint: Possible Kidney Time Seen by Provider: 07/09/22 02:47 Source: patient Mode of arrival: ambulatory Limitations: no limitations History of Present Illness: 52-year-old female states she has been having left-sided flank pain throughout the day. States she has a history of kidney stones she states the pain is a sharp pain rates it a 3 out of 10 currently she has had nausea with some vomiting throughout the day. She just feels like previous kidney stones she denies any worsening proving factors it does radiate to her groin. She states she took a [place] at home today. Associated Symptoms: Reports nausea; Denies chills and fever(s) Related Data: Date of Last Menstrual Period: 01/08/22 Review of Systems Const: Denies: fever(s), chills, body aches or change in appetite Eyes: Denies: blurry vision or eye discomfort ENMT: Denies: throat pain or dental pain Card: Denies: chest pain Resp: Denies: dyspnea GI: Reports: abdominal pain and nausea : Reports: flank pain Musc: Denies: neck pain or back pain Skin/Breast: Denies: rash Neuro: Denies: headache(s) Psych: Denies: depression Jairon/Lymph: Denies: easy bruising All/Imm: Denies: urticaria PFSH ED PFSH: Medical History Coronary artery disease Diastolic congestive heart failure Kidney stone No pertinent family history Surgical History H/O abdominoplasty H/O splenectomy Social History Smoking and tobacco status: never smoked Female Reproductive History: Date of last menstrual period: 01/08/22 Physical Exam Const: COMMON NORMALS: no acute distress, patient oriented x3 and healthy appearing HENMT: COMMON NORMALS: normocephalic and atraumatic HEAD & SCALP: normocephalic and atraumatic Eye: COMMON NORMALS: Equal, round and reactive pupils present and EOMs intact bilaterally PUPIL: Yes Equal, round and reactive pupils present Neck/C-Spine: COMMON NORMALS: full ROM and supple Chest: COMMONS NORMALS: normal inspection of the chest and normal palpation of entire chest wall Resp: COMMON NORMALS: normal respiratory effort, No retractions, No use of accessory muscles and clear to auscultation bilaterally AUSCULTATION: clear to auscultation bilaterally Cardio: COMMON NORMALS: regular rate, regular rhythm and No murmurs present (Cardio) RATE: regular rate RHYTHM: regular rhythm GI: COMMON NORMALS: Normal to inspection, nondistended, normoactive bowel sounds present, Soft to palpation, non-tender and no masses PALPATION: Yes Soft to palpation Extremity: COMMON NORMALS: normal to inspection and full ROM Neuro: COMMON NORMALS: patient oriented x3, moves all extremities and no focal motor deficits Psych: COMMON NORMALS: mental status grossly normal, Normal thought process present and cooperative THOUGHT PROCESS: Normal thought process present Skin: COMMON NORMALS: no rashes or lesions noted and no wounds GENERAL SKIN EXAM: no rashes or lesions noted Course Vital Signs: Vital signs: Vital Signs Temperature 97.9 F 07/09/22 02:53 Pulse Rate 64 07/09/22 05:30 Respiratory Rate 17 07/09/22 05:30 Blood Pressure 165/104 07/09/22 05:30 Pulse Oximetry 94 07/09/22 05:30 Oxygen Delivery Me thod 07/09/22 02:53 MDM - Abdominal Pain Medical Decision Making Patient presents here with flank pain she does have some hematuria she may have recently passed a stone CT scan is normal her pain is improved she is stable for discharge she is to follow-up with her PCP and return if worsening. Lab Data 07/09/22 03:14 07/09/22 03:14 Labs/Radiology: Radiology Impressions Abdomen/Pelvis CT 07/09/22 02:55 IMPRESSION: 1. 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 2. No hydronephrosis. No renal or ureteral calculi identified. The previously noted nonobstructive left renal calculus has passed. 3. A small hiatal hernia. 4. Mild diverticulosis of the descending and sigmoid colon without acute diverticulitis. Laboratory Results WBC 12.8 10^3/uL (4.0-10.0) H 07/09/22 03:14 RBC 5.14 10^6/uL (4.1-5.3) 07/09/22 03:14 Hgb 14.4 g/dL (11.5-15.3) 07/09/22 03:14 Hct 45.2 % (37.0-47.0) 07/09/22 03:14 MCV 87.9 fl (81-99) 07/09/22 03:14 MCH 28.0 pg (28.0-34.0) 07/09/22 03:14 MCHC 31.9 g/dL (30.0-36.0) 07/09/22 03:14 RDW 15.1 % (12.1-15.1) 07/09/22 03:14 Plt Count 351 10^3/cmm (130-400) 07/09/22 03:14 MPV 8.9 fL (7.4-10.4) 07/09/22 03:14 Neut % (Auto) 59.7 % 07/09/22 03:14 Lymph % (Auto) 29.6 % 07/09/22 03:14 [place] % (Auto) 7.8 % 07/09/22 03:14 Eos % (Auto) 2.1 % 07/09/22 03:14 Baso % (Auto) 0.5 % 07/09/22 03:14 Neut # (Auto) 7.61 10^3/uL (1.8-7.7) 07/09/22 03:14 Lymph # (Auto) 3.8 10^3/uL (0.8-4.8) 07/09/22 03:14 [place] # (Auto) 1.0 10^3/uL (0.2-0.9) H 07/09/22 03:14 Eos # (Auto) 0.3 10^3/uL (0.0-0.8) 07/09/22 03:14 Baso # (Auto) 0.1 10^3/uL (0.0-0.1) 07/09/22 03:14 Nucleated RBC % (auto) 0 % 07/09/22 03:14 Nucleated RBCs # 0.0 /100WBC 07/09/22 03:14 Sodium 136 mmol/L (136-145) 07/09/22 03:14 Potassium 4.0 mmol/L (3.5-5.1) 07/09/22 03:14 Chloride 102 mmol/L (98-107) 07/09/22 03:14 Carbon Dioxide 25 mmol/L (22-29) 07/09/22 03:14 Anion Gap 13.0 (5-19) 07/09/22 03:14 BUN 15 mg/dL (6-20) 07/09/22 03:14 Creatinine 0.9 mg/dL (0.5-0.9) 07/09/22 03:14 GFR Calculation 65.2 mL/min (90-130) L 07/09/22 03:14 Glucose 97 mg/dL (65-115) 07/09/22 03:14 Calculated Osmolality 283 mOsm/kg (285-295) L 07/09/22 03:14 Calcium 8.9 mg/dL (8.5-10.5) 07/09/22 03:14 Total Bilirubin 0.3 mg/dL (0.15-1.2) 07/09/22 03:14 AST 19 U/L (0-32) 07/09/22 03:14 ALT 19 U/L (0-33) 07/09/22 03:14 Alkaline Phosphatase 65 U/L (35-105) 07/09/22 03:14 Total Protein 7.2 g/dL (6.6-8.7) 07/09/22 03:14 Albumin 3.9 g/dL (3.5-5.2) 07/09/22 03:14 Globulin 3.3 g/dL (1.3-4.6) 07/09/22 03:14 Lipase 31 U/L (13-60) 07/09/22 03:14 Urine Color Yellow (Yellow) 07/09/22 03:32 Urine Appearance Clear (CLEAR) 07/09/22 03:32 Urine pH 6 (5-7) 07/09/22 03:32 Ur Specific [place] 1.020 (1.005-1.030) 07/09/22 03:32 Urine Protein Neg (Negative) 07/09/22 03:32 Urine Glucose (UA) Norm (Normal) 07/09/22 03:32 Urine Ketones Negative (Negative) 07/09/22 03:32 Urine Blood 3+ (Negative) H 07/09/22 03:32 Urine Nitrate Negative (Negative) 07/09/22 03:32 Urine Bilirubin Neg (Negative) 07/09/22 03:32 Urine Urobilinogen Norm mg/dL (Negative) 07/09/22 03:32 Ur Leukocyte Esterase Negative (Negative) 07/09/22 03:32 Urine RBC 15-25 /hpf (0-2) H 07/09/22 03:32 Urine WBC 0-4 /hpf (0-5) H 07/09/22 03:32 Ur Squamous Epith Cells 0-4 /hpf (0-5) H 07/09/22 03:32 Amorphous Sediment Not Reportable 07/09/22 03:32 Urine Bacteria Trace /hpf (NONE) 07/09/22 03:32 Discharge Plan Discharge Patient Disposition: Home Clinical Impression: Acute left flank pain Condition: Stable Prescriptions: New ondansetron 4 mg tablet,disintegrating 4 mg PO Q6H PRN (Reason: nausea and vomiting) Qty: 14 0RF hydrocodone-acetaminophen 5-325 mg tablet 1 tab PO Q6H PRN (Reason: pain) Qty: 14 0RF No Action amlodipine 2.5 mg tablet 2.5 mg PO DAILY hydrochlorothiazide 25 mg tablet 25 mg PO DAILY levothyroxine 25 mcg Tablet 25 mcg PO DAILY spironolactone 25 mg Tablet 50 mg PO DAILY topiramate 25 mg Tablet 25 mg PO BID phentermine 37.5 mg tablet 37.5 mg PO DAILY hydrocodone-acetaminophen 5-325 mg tablet 1 tab PO Q8H PRN (Reason: pain) Qty: 10 0RF ciprofloxacin HCl 500 mg tablet 500 mg PO Q12H Qty: 24 0RF metronidazole 500 mg tablet 500 mg PO Q8H Qty: 36 0RF ondansetron 4 mg tablet,disintegrating 4 mg PO Q8H PRN (Reason: nausea and vomiting) Qty: 15 0RF celecoxib 100 mg capsule 100 mg PO BID PRN (Reason: pain) Qty: 30 0RF Discharge Orders: Discharge ED (Routine); Ordered 07/09/22 Ordered By: Christel Charles Referrals: Dustin Chi MD [Physician] - 1-3 days Discharge Diet: Advance as tolerated Discharge Activity: Resume usual activity Patient Instructions: Kidney Stones (ED), Opioid Safety Coding Level of Care Code ED Dispatcher [employer] for Chg Fwd Exam Comprehensive
[2022-07-09 03:21] LABS: Basophils # 0.1 10^3/uL (0.0-0.1); Basophils % 0.5 %; Eosinophils # 0.3 10^3/uL (0.0-0.8); Eosinophils % 2.1 %; Hematocrit 45.2 % (37.0-47.0); Hemoglobin 14.4 g/dL (11.5-15.3); Lymphocytes # 3.8 10^3/uL (0.8-4.8); Lymphocytes % 29.6 %; Mean Corpuscular HGB Conc 31.9 g/dL (30.0-36.0); Mean Corpuscular Volume 87.9 fl (81-99); Mean Platelet Volume 8.9 fL (7.4-10.4); Monocytes % 7.8 %; Neutrophils # 7.61 10^3/uL (1.8-7.7); Neutrophils % 59.7 %; Nucleated Red Blood Cells % 0 %; Platelet Count 351 10^3/cmm (130-400); Red Blood Count 5.14 10^6/uL (4.1-5.3); Red Cell Distribution Width 15.1 % (12.1-15.1); White Blood Count 12.8 10^3/uL (4.0-10.0)
[2022-07-09] MEDS: ondansetron 2 mg/ML SDV 2 mL 4 MG IVP (03:34)
[2022-07-09 03:44] LABS: Alanine Aminotransferase 19 U/L (0-33); Albumin Level 3.9 g/dL (3.5-5.2); Alkaline Phosphatase 65 U/L (35-105); Aspartate Amino Transferase 19 U/L (0-32); Blood Urea Nitrogen 15 mg/dL (6-20); Calcium 8.9 mg/dL (8.5-10.5); Carbon Dioxide 25 mmol/L (22-29); Chloride 102 mmol/L (98-107); Globulin 3.3 g/dL (1.3-4.6); Glomerular Filtration Rate 65.2 mL/min (90-130); Glucose 97 mg/dL (65-115); Osmolality Calculated 283 mOsm/kg (285-295); Sodium 136 mmol/L (136-145); Total Bilirubin 0.3 mg/dL (0.15-1.2); Total Protein 7.2 g/dL (6.6-8.7)
[2022-07-09 03:53] VITALS: RESP 16
[2022-07-09] MEDS: morphine 4 mg/mL SDV 1 mL IVP (03:53)
[2022-07-09 04:07] LABS: Lipase 31 U/L (13-60)
[2022-07-09 04:11] LABS: Add Urine Microscopic? YES; Bilirubin Urine Neg (Negative); Blood Urine 3+ (Negative); Glucose Urine UA Norm (Normal); Ketones Urine Negative (Negative); Leukocyte Esterase Urine Negative (Negative); Nitrate Urine Negative (Negative); Protein Urine Neg (Negative); Urine Appearance Clear (CLEAR); Urine Color Yellow (Yellow); Urobilinogen Urine Norm (Negative); pH Urine 6 (5-7)
[2022-07-09 04:12] LABS: Add Urine Culture? No; Bacteria Urine TRACE /hpf; RBC Urine 15-25 /hpf (0-2); Squamous Epithelial Cell Urine 0-4 /hpf (0-5); WBC Urine 0-4 /hpf (0-5)
[2022-07-09 04:30] VITALS: BP 140/102; PULSE 67; RESP 15; O2SAT 91
[2022-07-09 05:30] VITALS: BP 165/104; PULSE 64; RESP 17; O2SAT 94
== END 2022-07-09 05:58 | disposition home or self-care (01) ==
PROVIDERS: Emergency Provider Emergency Medicine
DX: R10.9 Unspecified abdominal pain (principal); R31.9 Hematuria, unspecified; Z87.442 Personal history of urinary calculi
CPT/HCPCS: 74176; 80053; 81001; 83690; 85025; 96374; 96375; 99284; J2270; J2405

== ENCOUNTER 2022-09-05 13:59 | Inpatient (IN) | payer BC, SELFPAY ==
[2022-09-05] VITALS (8 sets, daily range): BP systolic 132–174; BP diastolic 94–107; PULSE 71–81; RESP 14–20; TEMP 36.8; O2SAT 94–96; BMI 37.4
--- NOTE | 2022-09-05 16:14 | CTR_ITS ---
PROCEDURE INFORMATION: Exam: CT Abdomen And Pelvis Without Contrast Exam date and time: 09/05/2022 5:32 PM Age: 52 years old Clinical indication: Pain; Other: RT flank; Prior surgery; Surgery date: 6+ months; Surgery type: Splenectomy, c section; Additional info: Flank pain TECHNIQUE: Imaging protocol: Computed tomography of the abdomen and pelvis without contrast. Radiation optimization: All CT scans at this facility use at least one of these dose optimization techniques: automated exposure control; mA and/or kV adjustment per patient size (includes targeted exams where dose is matched to clinical indication); or iterative reconstruction. Other protocol: This patient has received 3 known CTs and 0 known cardiac nuclear medicine studies in the 12 months prior to the current study. COMPARISON: CT kidney stone [id number] 07/09/2022 3:02 AM RADIATION DOSE METRICS: Total DLP (mGy-cm): 985.33 FINDINGS: Liver: Normal. No mass. Gallbladder and bile ducts: Gallbladder is somewhat distended with possible minimal cholelithiasis, ultrasound could further evaluate this. Pancreas: Normal. No ductal dilation. 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 Adrenal glands: Normal. No mass. Kidneys and ureters: Normal. No hydronephrosis. Stomach and bowel: Constipation. Small hiatal hernia. Appendix: Appendiceal tip is somewhat dilated to 9.7 mm with some surrounding edema, best seen series 4, image 141, please correlate for possible appendicitis. Intraperitoneal space: Unremarkable. No free air. No significant fluid collection. Vasculature: Unremarkable. No abdominal aortic aneurysm. Lymph nodes: Unremarkable. No enlarged lymph nodes. Urinary bladder: Unremarkable as visualized. Reproductive: Unremarkable as visualized. Bones/joints: Unremarkable. No acute fracture. Soft tissues: Left abdominal wall omental fat containing hernia without bowel or inflammation, the defect in the abdominal wall measures approximately [address]/CT kidney stone [id number] IMPRESSION: 1. Appendiceal tip is somewhat dilated to 9.7 mm with some surrounding edema, best seen series 4, image 141, please correlate for possible appendicitis. 2. Gallbladder is somewhat distended with possible minimal cholelithiasis, ultrasound could further evaluate this. 3. Constipation. 4. 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 5. Small hiatal hernia. 6. Left abdominal wall omental fat containing hernia without bowel or inflammation, the defect in the abdominal wall measures approximately 11 mm. THIS REPORT CONTAINS FINDINGS THAT MAY BE CRITICAL TO PATIENT CARE. The findings were verbally communicated via telephone conference with Dr. Charles at 6:05 PM [employer] on 09/05/2022. The findings were acknowledged and understood.
[2022-09-05 16:15] LABS: Basophils # 0.1 10^3/uL (0.0-0.1); Basophils % 0.6 %; Eosinophils # 0.3 10^3/uL (0.0-0.8); Eosinophils % 1.8 %; Hemoglobin 14.8 g/dL (11.5-15.3); Lymphocytes # 3.7 10^3/uL (0.8-4.8); Lymphocytes % 25.1 %; Mean Corpuscular HGB Conc 31.5 g/dL (30.0-36.0); Mean Corpuscular Hemoglobin 27.4 pg (28.0-34.0); Mean Corpuscular Volume 86.9 fl (81-99); Mean Platelet Volume 9.1 fL (7.4-10.4); Monocytes % 6.9 %; Neutrophils # 9.71 10^3/uL (1.8-7.7); Neutrophils % 65.3 %; Nucleated Red Blood Cells % 0 %; Platelet Count 378 10^3/cmm (130-400); Red Blood Count 5.41 10^6/uL (4.1-5.3); Red Cell Distribution Width 14.6 % (12.1-15.1); White Blood Count 14.9 10^3/uL (4.0-10.0)
--- NOTE | 2022-09-05 16:24 | ED_ITS ---
Documented by User: Curt Pandey DO 09/06/22 07:52 HPI - Female Genitourinary General: Chief complaint: Urogenital-Female Stated complaint: urinary pain Time Seen by Provider: 09/05/22 15:48 Source: patient Mode of arrival: ambulatory History of Present Illness: 52-year-old female presents emergency room complaining of dysuria hematuria and right-sided flank pain. Patient has a history of recurrent UTIs as well as a history of nephrolithiasis she feels like she has a stone again on the right side. Symptoms began over the last couple of days she has had low-grade fever at home as well. MD elicited complaint: dysuria and UTI Onset (ago): day(s) (2) Location of symptoms: flank (R) Severity: moderate Quality of pain: sharp Consistency: constant Urinary symptoms: Dysuria, Flank Pain and Hematuria Exacerbating factors: none Relieving factors: none Associated symptoms: Deny abdominal pain, short of breath, fevers/chills, headache(s), nausea, rash, seizures, syncope, vaginal bleeding, vaginal discharge or weakness Treatment prior to arrival: none Date of Last Menstrual Period: 01/08/22 Review of Systems Const: Denies: fever(s), chills, body aches, change in appetite, fatigue or malaise ENMT: Denies: throat pain, ear or mastoid pain, nasal discharge or nasal congestion Card: Denies: chest pain, palpitations, irregular heart rhythm or syncope Resp: Denies: dyspnea, productive cough or non-productive cough GI: Denies: abdominal pain or nausea : Reports: dysuria and hematuria; Denies: vaginal discharge Skin/Breast: Denies: rash or pruritus Neuro: Denies: headache(s) PFS ED PFSH: Medical History Coronary artery disease Diastolic congestive heart failure Kidney stone No pertinent family history Surgical History H/O abdominoplasty H/O splenectomy Family History Denies family history of CAD (coronary artery disease) Social History Smoking and tobacco status: never smoked Female Reproductive History: Date of last menstrual period: 01/08/22 Physical Exam Const: GENERAL APPEARANCE: cooperative and comfortable ORIENTATION/CONSCIOUSNESS: Yes awake, Yes oriented to person, Yes oriented to place and Yes oriented to time HENMT: COMMON NORMALS: normocephalic and atraumatic HEAD & SCALP: normocephalic and atraumatic Resp: COMMON NORMALS: normal respiratory effort, No retractions, No use of accessory muscles and clear to auscultation bilaterally AUSCULTATION: clear to auscultation bilaterally Cardio: COMMON NORMALS: regular rate, regular rhythm and No murmurs present (Cardio) RATE: regular rate RHYTHM: regular rhythm GI: COMMON NORMALS: Soft to palpation and No hepatosplenomegaly present AUSCULTATION: Yes normoactive bowel sounds PALPATION: Yes Soft to palpation, No Tenderness to palpation present (GI), No Guarding due to palpation present (GI) and Yes No hepatosplenomegaly present : SPECULUM EXAM - VAGINA: No vaginal bleeding OB/EXTERNAL & SPECULUM: No vaginal bleeding Extremity: COMMON NORMALS: normal to inspection, capillary refill normal, no clubbing, cyanosis or edema, no calf tenderness and no pedal edema Neuro: SENSORIUM/ORIENTATION: Yes oriented to person, Yes oriented to place and Yes oriented to time Skin: COMMON NORMALS: no rashes or lesions noted GENERAL SKIN EXAM: no rashes or lesions noted Course Vital Signs: Vital signs: Vital Signs Temperature 98.3 F 09/06/22 03:52 Pulse Rate 79 09/06/22 05:10 Respiratory Rate 16 09/06/22 05:10 Blood Pressure 143/100 09/06/22 03:52 Pulse Oximetry 94 09/06/22 05:10 Oxygen Delivery Me thod 09/06/22 05:10 [facility] - Female Medical Decision Making Care signed out to Dr. Charles at change of shift. See final notes for diagnosis and disposition. Patient presents here with abdominal pain she does have a cystitis along with constipation radiologist called possible early appendicitis I spoke to general surgeon Dr. Walker who reviewed the CT scan he does not feel that it is an appendectomy at this time I spoke to hospitalist along with surgeon and at this time will admit for IV robotics for UTI we will give her MiraLAX for constipation and the surgeons get a see her in the morning and reexamine her as well. Medical Records I reviewed the patient's medical records. Lab Data I reviewed the patient's lab results. 09/05/22 16:06 09/05/22 16:06 Radiology Impressions Abdomen/Pelvis CT 09/05/22 16:14 IMPRESSION: 1. Appendiceal tip is somewhat dilated to 9.7 mm with some surrounding edema, best seen series 4, image 141, please correlate for possible appendicitis. 2. Gallbladder is somewhat distended with possible minimal cholelithiasis, ultrasound could further evaluate this. 3. Constipation. 4. 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 5. Small hiatal hernia. 6. Left abdominal wall omental fat containing hernia without bowel or inflammation, the defect in the abdominal wall measures approximately 11 mm. THIS REPORT CONTAINS FINDINGS THAT MAY BE CRITICAL TO PATIENT CARE. The findings were verbally communicated via telephone conference with Dr. Charles at 6:05 PM [employer] on 09/05/2022. The findings were acknowledged and understood. Laboratory Results WBC 14.9 10^3/uL (4.0-10.0) H 09/05/22 16:06 RBC 5.41 10^6/uL (4.1-5.3) H 09/05/22 16:06 Hgb 14.8 g/dL (11.5-15.3) 09/05/22 16:06 Hct 47.0 % (37.0-47.0) 09/05/22 16:06 MCV 86.9 fl (81-99) 09/05/22 16:06 MCH 27.4 pg (28.0-34.0) L 09/05/22 16:06 MCHC 31.5 g/dL (30.0-36.0) 09/05/22 16:06 RDW 14.6 % (12.1-15.1) 09/05/22 16:06 Plt Count 378 10^3/cmm (130-400) 09/05/22 16:06 MPV 9.1 fL (7.4-10.4) 09/05/22 16:06 Neut % (Auto) 65.3 % 09/05/22 16:06 Lymph % (Auto) 25.1 % 09/05/22 16:06 [place] % (Auto) 6.9 % 09/05/22 16:06 Eos % (Auto) 1.8 % 09/05/22 16:06 Baso % (Auto) 0.6 % 09/05/22 16:06 Neut # (Auto) 9.71 10^3/uL (1.8-7.7) H 09/05/22 16:06 Lymph # (Auto) 3.7 10^3/uL (0.8-4.8) 09/05/22 16:06 [place] # (Auto) 1.0 10^3/uL (0.2-0.9) H 09/05/22 16:06 Eos # (Auto) 0.3 10^3/uL (0.0-0.8) 09/05/22 16:06 Baso # (Auto) 0.1 10^3/uL (0.0-0.1) 09/05/22 16:06 Nucleated RBC % (auto) 0 % 09/05/22 16:06 Nucleated RBCs # 0.0 /100WBC 09/05/22 16:06 Sodium 136 mmol/L (136-145) 09/05/22 16:06 Potassium 4.3 mmol/L (3.5-5.1) 09/05/22 16:06 Chloride 102 mmol/L (98-107) 09/05/22 16:06 Carbon Dioxide 27 mmol/L (22-29) 09/05/22 16:06 Anion Gap 11.3 (5-19) 09/05/22 16:06 BUN 15 mg/dL (6-20) 09/05/22 16:06 Creatinine 0.8 mg/dL (0.5-0.9) 09/05/22 16:06 GFR Calculation 74.7 mL/min (90-130) L 09/05/22 16:06 Glucose 94 mg/dL (65-115) 09/05/22 16:06 Calculated Osmolality 283 mOsm/kg (285-295) L 09/05/22 16:06 Calcium 9.3 mg/dL (8.5-10.5) 09/05/22 16:06 Total Bilirubin 0.4 mg/dL (0.15-1.2) 09/05/22 16:06 AST 21 U/L (0-32) 09/05/22 16:06 ALT 19 U/L (0-33) 09/05/22 16:06 Alkaline Phosphatase 76 U/L (35-105) 09/05/22 16:06 Total Protein 7.6 g/dL (6.6-8.7) 09/05/22 16:06 Albumin 3.9 g/dL (3.5-5.2) 09/05/22 16:06 Globulin 3.7 g/dL (1.3-4.6) 09/05/22 16:06 Urine Color Yellow (Yellow) 09/05/22 16:07 Urine Appearance Cloudy (CLEAR) A 09/05/22 16:07 Urine pH 6 (5-7) 09/05/22 16:07 Ur Specific [place] 1.020 (1.005-1.030) 09/05/22 16:07 Urine Protein Neg (Negative) 09/05/22 16:07 Urine Glucose (UA) Norm (Normal) 09/05/22 16:07 Urine Ketones Negative (Negative) 09/05/22 16:07 Urine Blood 3+ (Negative) H 09/05/22 16:07 Urine Nitrate Positive (Negative) H 09/05/22 16:07 Urine Bilirubin Neg (Negative) 09/05/22 16:07 Urine Urobilinogen Neg mg/dL (Negative) 09/05/22 16:07 Ur Leukocyte Esterase 2+ (Negative) H 09/05/22 16:07 Urine RBC 10-15 /hpf (0-2) H 09/05/22 16:07 Urine WBC 55-80 /hpf (0-5) H 09/05/22 16:07 Ur Squamous Epith Cells 40-55 /hpf (0-5) H 09/05/22 16:07 Amorphous Sediment Not Reportable 09/05/22 16:07 Urine Bacteria 2+ /hpf (NONE) H 09/05/22 16:07 Urine Mucus 2+ /hpf 09/05/22 16:07 Discharge Plan Discharge Patient Disposition: Admitted As Inpatient Admit Provider: Brown Lou Clinical Impression: Acute cystitis, Constipation, Abdominal pain Condition: Stable Coding Level of Care Code ED Resolution Manager for Chg Fwd Exam Comprehensive Documented by User: Christel Charles MD 09/05/22 18:28 HPI - Female Genitourinary General: Chief complaint: Urogenital-Female Stated complaint: urinary pain Time Seen by Provider: 09/05/22 15:48 PFSH ED PFSH: Medical History Coronary artery disease Diastolic congestive heart failure Kidney stone No pertinent family history Surgical History H/O abdominoplasty H/O splenectomy Family History Denies family history of CAD (coronary artery disease) Social History Smoking and tobacco status: never smoked Course Vital Signs: Vital signs: Vital Signs Temperature 98.3 F 09/06/22 03:52 Pulse Rate 79 09/06/22 05:10 Respiratory Rate 16 09/06/22 05:10 Blood Pressure 143/100 09/06/22 03:52 Pulse Oximetry 94 09/06/22 05:10 Oxygen Delivery Me thod 09/06/22 05:10 MDM - Female Medical Decision Making Care signed out to Dr. Charles at change of shift. See final notes for diagnosis and disposition. Patient presents here with abdominal pain she does have a cystitis along with constipation radiologist called possible early appendicitis I spoke to general surgeon Dr. Walker who reviewed the CT scan he does not feel that it is an appendectomy at this time I spoke to hospitalist along with surgeon and at this time will admit for IV robotics for UTI we will give her MiraLAX for constipation and the surgeons get a see her in the morning and reexamine her as well. Lab Data 09/05/22 16:06 09/05/22 16:06 Radiology Impressions Abdomen/Pelvis CT 09/05/22 16:14
[2022-09-05] MEDS: ondansetron 2 mg/ML SDV 2 mL 4 MG IVP (16:33)
[2022-09-05] MEDS: morphine 4 mg/mL SDV 1 mL IVP (16:33)
[2022-09-05 16:42] LABS: Add Urine Microscopic? YES; Bilirubin Urine Neg (Negative); Blood Urine 3+ (Negative); Glucose Urine UA Norm (Normal); Ketones Urine Negative (Negative); Leukocyte Esterase Urine 2+ (Negative); Nitrate Urine Positive (Negative); Protein Urine Neg (Negative); Urine Appearance Cloudy (CLEAR); Urine Color Yellow (Yellow); Urobilinogen Urine Neg (Negative); pH Urine 6 (5-7)
[2022-09-05 16:44] LABS: Alanine Aminotransferase 19 U/L (0-33); Albumin Level 3.9 g/dL (3.5-5.2); Alkaline Phosphatase 76 U/L (35-105); Anion Gap 11.3 (5-19); Aspartate Amino Transferase 21 U/L (0-32); Blood Urea Nitrogen 15 mg/dL (6-20); Calcium 9.3 mg/dL (8.5-10.5); Carbon Dioxide 27 mmol/L (22-29); Chloride 102 mmol/L (98-107); Globulin 3.7 g/dL (1.3-4.6); Glomerular Filtration Rate 74.7 mL/min (90-130); Glucose 94 mg/dL (65-115); Osmolality Calculated 283 mOsm/kg (285-295); Potassium 4.3 mmol/L (3.5-5.1); Sodium 136 mmol/L (136-145); Total Bilirubin 0.4 mg/dL (0.15-1.2); Total Protein 7.6 g/dL (6.6-8.7)
[2022-09-05 16:47] LABS: Add Urine Culture? No; Bacteria Urine 2+ /hpf; Mucus Urine 2+ /hpf; Squamous Epithelial Cell Urine 40-55 /hpf (0-5); WBC Urine 55-80 /hpf (0-5)
--- NOTE | 2022-09-05 18:47 | PM.CONSULT ---
Providers/Reason For Consult Consulting Physician/Specialty*: ER physician Reason for Consult*: Concerning CT scan of the abdomen Attending Physician: Brown Lou MD History of Present Illness History of Present Illness Hilary Pappas is a 52 year old female who presents with the patient describes subjective fevers and possible chills. She has had some diarrhea without constipation. She has had no nausea or vomiting. The patient underwent a CT scan of her abdomen and pelvis while in the emergency room. The tip of the appendix is somewhat dilated. There is some fat stranding around the tip of the appendix. There is no fluid. The rest the appendix appears to be normal. The patient had abdominal surgery approximate 20 years ago. The patient had a splenectomy. Review of Systems General: Reports: 10 or more systems reviewed and unremarkable except in HPI and below Medications/Allergies Home Medications Medication Instructions Recorded Confirmed Last Taken Type amlodipine 2.5 mg tablet 2.5 mg PO DAILY 03/14/20 01/29/22 12/02/21 History hydrochlorothiazide 25 mg tablet 25 mg PO DAILY 03/14/20 01/29/22 12/02/21 History levothyroxine 25 mcg tablet 25 mcg PO DAILY 03/14/20 01/29/22 12/02/21 History spironolactone 25 mg tablet 50 mg PO DAILY 03/14/20 01/29/22 12/02/21 History topiramate 25 mg tablet 25 mg PO BID 03/14/20 01/29/22 12/02/21 History celecoxib 100 mg capsule 100 mg PO BID PRN pain #30 caps 12/22/21 01/29/22 Unknown Rx ondansetron 4 mg disintegrating 4 mg PO Q8H PRN nausea and 12/22/21 01/29/22 Unknown Rx tablet vomiting #15 tabs phentermine 37.5 mg tablet 37.5 mg PO DAILY 01/29/22 01/29/22 12/02/21 History ciprofloxacin HCl 500 mg tablet 500 mg PO Q12H #24 tabs 01/31/22 Unknown Rx hydrocodone 5 mg-acetaminophen 325 1 tab PO Q8H PRN pain #10 tabs 01/31/22 Unknown Rx mg tablet metronidazole 500 mg tablet 500 mg PO Q8H #36 tabs 01/31/22 Unknown Rx hydrocodone 5 mg-acetaminophen 325 1 tab PO Q6H PRN pain #14 tabs 07/09/22 Unknown Rx mg tablet ondansetron 4 mg disintegrating 4 mg PO Q6H PRN nausea and 07/09/22 Unknown Rx tablet vomiting #14 tabs Allergies Allergy/AdvReac Type Severity Reaction Status Date / Time acetaminophen [From Tylenol] Allergy ALGY-Anaphy Verified 01/30/22 08:59 laxis nitroglycerin Allergy ADR-Headach Verified 01/30/22 08:59 e Penicillins Allergy ALGY-Redness Verified 01/30/22 08:59 of Skin walnut Allergy Unknown Verified 01/30/22 08:59 PFSH Acute PFSH: Medical History Coronary artery disease Diastolic congestive heart failure Kidney stone No pertinent family history Surgical History H/O abdominoplasty H/O splenectomy Social History Smoking and tobacco status: never smoked Female Reproductive History: Date of last menstrual period: 01/08/22 Vitals/I&O/Wt Last Vital Signs Temp 98.2 F 09/05/22 14:06 Pulse 77 09/05/22 18:00 Resp 16 09/05/22 16:33 BP 132/101 09/05/22 18:00 Pulse Ox 94 09/05/22 18:00 O2 Del Method 09/05/22 14:06 Weight last 48 hrs Weight 225 lb Physical Exam Narrative: Generally: No acute distress. The patient sitting up in bed. The patient is morbidly obese. HEENT: Normocephalic atraumatic Neck: Free range of motion and nontender. The patient has no adenopathy that I can appreciate. The patient's trachea is midline. The patient has no thyromegaly Lungs: Clear to auscultation and percussion Heart: Regular rate and rhythm without murmurs. There is no S3 or S4. There is no rubs clicks or JVD noted Abdomen: Soft, obese, nontender. The patient really has no abdominal tenderness. I cannot appreciate any rebound. The patient really does not have focal tenderness even to deep palpation. The patient has normal active bowel sounds. There is no rushes or tinkles. There are no hernias that I can appreciate. Pelvis: Stable both AP and medial compression Extremities: There is no obvious deformities or point tenderness suggestive of a fracture. The patient has no clubbing cyanosis or edema Neurologic: The patient is awake, alert, oriented x3. The patient's Rodrigue Coma Scale is 15. The patient moves all 4 extremities without difficulty. Data 09/05/22 16:06 09/05/22 16:06 Micro: Microbiology 09/05/22 18:17 Blood Culture - Preliminary Blood SPECIMEN COLLECTED 09/05/22 18:13 Blood Culture - Preliminary Blood SPECIMEN COLLECTED Attestation for Other Data: I personally reviewed and interpreted the following: Other data: I reviewed the CT scan in detail. A&P Assessment and plan (1) Abdominal pain: Although the CT scan is somewhat concerning for acute appendicitis. The patient's abdominal exam is really nonfocal. The patient's history is also not consistent with acute appendicitis. Agree with admission to the hospital. We will start the patient on broad-spectrum antibiotics for her urinary tract infection. We will continue to follow this patient with you. If the patient's clinical status worsens we will schedule patient for an appendectomy. (2) Acute cystitis: Antibiotics Coding Level of Care Code 96575 Diagnoses Abdominal pain R10.9 Acute cystitis N30.00
[2022-09-05] MEDS: polyethylene glycol 3350 Pkt 17 gm PO (18:51)
[2022-09-05] MEDS: metroNIDAZOLE IV 500 MG/100 ML PREMIX 100 MG IV (19:00)
--- NOTE | 2022-09-05 19:28 | PM.HP ---
Providers/Chief Complaint Admitting Physician: Brown Lou MD Chief Complaint: urinary pain History of Present Illness Hilary Pappas is a 52 year old female who has moved from [place] living with her family here, presented with chief complaint of right flank pain. Patient is stating that her symptoms started on Friday with right flank pain, hematuria with blood clots, her last menstrual period was a week ago, she started experiencing fever 101.2, she took aspirin because she is allergic to Tylenol. She will need to 2 episode of emesis. Today because of worsening of pain she decided to come to the hospital for further evaluation She carries history of diastolic CHF, no history of sleep apnea or OR. In the ER there was concern for appendicitis as per the CT scan however clinically she has right-sided CVA tenderness abdominal exam is benign She is awake and alert She is stating that she would not get surgery in a small town because she is from [place] and would like to seek care at a tertiary center if surgery is indicated for now she is agreeable to get treatment for UTI Review of Systems Const: Reports: fever(s), chills, body aches and fatigue Eyes: Denies: change in vision ENMT: Denies: throat pain Card: Denies: chest pain Resp: Denies: dyspnea GI: Reports: abdominal pain, nausea and vomiting : Reports: metrorrhagia Musc: Denies: neck pain Skin/Breast: Denies: rash or changing lesions Neuro: Denies: headache(s) Psych: Reports: anxiety Endo: Denies: polyuria Jairon/Lymph: Denies: easy bruising All/Imm: Denies: urticaria Medications/Allergies Home Medications Medication Instructions Recorded Confirmed Last Taken Type amlodipine 2.5 mg tablet 2.5 mg PO DAILY 03/14/20 01/29/22 12/02/21 History hydrochlorothiazide 25 mg tablet 25 mg PO DAILY 03/14/20 01/29/22 12/02/21 History levothyroxine 25 mcg tablet 25 mcg PO DAILY 03/14/20 01/29/22 12/02/21 History spironolactone 25 mg tablet 50 mg PO DAILY 03/14/20 01/29/22 12/02/21 History topiramate 25 mg tablet 25 mg PO BID 03/14/20 01/29/22 12/02/21 History celecoxib 100 mg capsule 100 mg PO BID PRN pain #30 caps 12/22/21 01/29/22 Unknown Rx ondansetron 4 mg disintegrating 4 mg PO Q8H PRN nausea and 12/22/21 01/29/22 Unknown Rx tablet vomiting #15 tabs phentermine 37.5 mg tablet 37.5 mg PO DAILY 01/29/22 01/29/22 12/02/21 History ciprofloxacin HCl 500 mg tablet 500 mg PO Q12H #24 tabs 01/31/22 Unknown Rx hydrocodone 5 mg-acetaminophen 325 1 tab PO Q8H PRN pain #10 tabs 01/31/22 Unknown Rx mg tablet metronidazole 500 mg tablet 500 mg PO Q8H #36 tabs 01/31/22 Unknown Rx hydrocodone 5 mg-acetaminophen 325 1 tab PO Q6H PRN pain #14 tabs 07/09/22 Unknown Rx mg tablet ondansetron 4 mg disintegrating 4 mg PO Q6H PRN nausea and 07/09/22 Unknown Rx tablet vomiting #14 tabs Allergies Allergy/AdvReac Type Severity Reaction Status Date / Time acetaminophen [From Tylenol] Allergy ALGY-Anaphy Verified 01/30/22 08:59 laxis nitroglycerin Allergy ADR-Headach Verified 01/30/22 08:59 e Penicillins Allergy ALGY-Redness Verified 01/30/22 08:59 of Skin walnut Allergy Unknown Verified 01/30/22 08:59 PFSH Acute PFSH: Medical History Coronary artery disease Diastolic congestive heart failure Kidney stone No pertinent family history Surgical History H/O abdominoplasty H/O splenectomy Family History Denies family history of CAD (coronary artery disease) Social History Smoking and tobacco status: never smoked Female Reproductive History: Date of last menstrual period: 01/08/22 Vitals/I&O/Wt Last Vital Signs Temp 98.2 F 09/05/22 14:06 Pulse 77 09/05/22 18:00 Resp 16 09/05/22 16:33 BP 132/101 09/05/22 18:00 Pulse Ox 94 09/05/22 18:00 O2 Del Method 09/05/22 14:06 Weight last 48 hrs Weight 102.058 kg Physical Exam Narrative: Patient is awake and alert Very pleasant and cooperative Morbidly obese Abdominal exam is benign Right CVA tenderness Clinically does not look dehydrated or in any distress Currently doing well on room air S1, S2 No audible stridor or wheezing Pleasant cooperative GCS 15 Data 09/05/22 16:06 09/05/22 16:06 Micro: Microbiology 09/05/22 18:17 Blood Culture - Preliminary Blood SPECIMEN COLLECTED 09/05/22 18:13 Blood Culture - Preliminary Blood SPECIMEN COLLECTED A&P Assessment and plan (1) Acute cystitis: (2) Abdominal pain: (3) Hematuria: Plan Right CVA tenderness Hematuria with blood clots Last menstrual period 1 week ago Concern for appendicitis as per the CT scan however clinically she does not have typical appendicitis signs Start aztreonam for possible appendicitis and UTI Abnormal UA noted Keep her n.p.o. DVT prophylaxis SCDs General surgery consulted No preoperative cardiac work-up needed No active signs of sepsis No endorgan damage Patient is stating that she would like to get surgery at a pressure center if indicated however she is requesting if she could be allowed to eat Her hematuria could be related to complicated UTI, no kidney stones, if her hematuria does not resolve she will need outpatient urology follow-up Attestations Medical Necessity Statement*: Anticipating discharge within 48 hours Time Spent in Patient Care: 40 Coding Level of Care Code Acute Code for Chg Fwd Diagnoses Acute cystitis N30.00 Abdominal pain R10.9 Hematuria R31.9
[2022-09-05 20:25] LABS: Procalcitonin 0.03 ng/mL (0-0.5)
[2022-09-05 20:26] LABS: Thyroid Stimulating Hormone 3.73 uIU/mL (0.27-4.20)
[2022-09-05] MEDS: sodium chloride 0.9% 1,000 ML 75 ML IV (20:31)
[2022-09-05] MEDS: ketorolac 30 mg/mL INJ 15 MG IVP (20:32)
[2022-09-05] MEDS: ciprofloxacin 400 MG/200 ML PREMIX 200 MG IV (21:33)
[2022-09-06] VITALS (11 sets, daily range): BP systolic 123–159; BP diastolic 68–100; PULSE 68–98; RESP 15–23; TEMP 36.7–36.8; O2SAT 94–97
[2022-09-06] MEDS: aspirin 81 mg Chew Tablet PO (00:16)
[2022-09-06] MEDS: morphine IR 15 mg Tablet PO ×2 (02:41→18:42)
[2022-09-06 06:02] LABS: Basophils # 0.1 10^3/uL (0.0-0.1); Basophils % 0.9 %; Eosinophils # 0.4 10^3/uL (0.0-0.8); Eosinophils % 3.4 %; Hematocrit 43.4 % (37.0-47.0); Hemoglobin 13.3 g/dL (11.5-15.3); Lymphocytes # 3.7 10^3/uL (0.8-4.8); Lymphocytes % 35.8 %; Mean Corpuscular HGB Conc 30.6 g/dL (30.0-36.0); Mean Corpuscular Hemoglobin 27.6 pg (28.0-34.0); Mean Platelet Volume 9.2 fL (7.4-10.4); Monocytes # 1.2 10^3/uL (0.2-0.9); Monocytes % 11.7 %; Neutrophils # 4.94 10^3/uL (1.8-7.7); Neutrophils % 47.7 %; Nucleated Red Blood Cells % 0 %; Platelet Count 312 10^3/cmm (130-400); Red Blood Count 4.82 10^6/uL (4.1-5.3); Red Cell Distribution Width 14.9 % (12.1-15.1); White Blood Count 10.3 10^3/uL (4.0-10.0)
[2022-09-06 09:02] LABS: Anion Gap 12.9 (5-19); Blood Urea Nitrogen 15 mg/dL (6-20); C Reactive Protein 12.9 mg/L (0.0-4.9); Calcium 8.5 mg/dL (8.5-10.5); Carbon Dioxide 25 mmol/L (22-29); Chloride 107 mmol/L (98-107); Glomerular Filtration Rate 74.7 mL/min (90-130); Glucose 133 mg/dL (65-115); Osmolality Calculated 293 mOsm/kg (285-295); Potassium 4.9 mmol/L (3.5-5.1); Sodium 140 mmol/L (136-145)
[2022-09-06] MEDS: metroNIDAZOLE 500 MG Tablet PO ×3 (10:16→21:34)
[2022-09-06] MEDS: sodium chloride 0.9% 1,000 ML 75 ML IV (10:17)
[2022-09-06] MEDS: aztreonam 1,000 MG in sodium chloride 0.9% (plus) 50 ML 100 MG IV ×2 (10:20→21:34)
--- NOTE | 2022-09-06 10:48 | PM.PN ---
Subjective Subjective: Feels a lot better Denies abdominal pain Flank pain is better Vitals/I&O/Wt Last Vital Signs Temp 98.1 F 09/06/22 07:00 Pulse 68 09/06/22 07:00 Resp 16 09/06/22 07:00 BP 123/73 09/06/22 07:00 Pulse Ox 94 09/06/22 07:00 O2 Del Method 09/06/22 07:00 09/05/22 09/06/22 09/06/22 22:59 06:59 14:59 Intake Total 300 / 300 1150 / 1450 1000 / 1000 Balance 300 / 300 1150 / 1450 1000 / 1000 Weight last 48 hrs Weight 225 lb Physical Exam Narrative: Generally: No acute distress Lungs: Clear to auscultation Heart: Regular rate and rhythm Abdomen: Soft nontender without masses. The patient has positive bowel sounds. The patient has no real abdominal tenderness that I can appreciate. There is no rebound tenderness. The patient has no Rovsing sign. Extremities: The patient has no clubbing cyanosis or edema Neurologic: The patient is awake, alert, oriented x3. The patient's Rodrigue Coma Scale is 15. The patient moves all 4 extremities without difficulty. The patient sensations intact to light touch throughout. Data 09/06/22 05:33 09/06/22 08:38 Micro: Microbiology 09/05/22 18:17 Blood Culture - Preliminary Blood SPECIMEN COLLECTED 09/05/22 18:13 Blood Culture - Preliminary Blood SPECIMEN COLLECTED Attestation for Other Data: I personally reviewed and interpreted the following: A&P Assessment and plan (1) Acute cystitis: Plan plan per primary physician (2) Abdominal pain: Abdominal pain appears to be secondary to the patient's urinary tract infection. I do not believe this patient has acute appendicitis (3) Acute appendicitis: I do not believe this patient has acute appendicitis. We will sign off at this time. Please reconsult for questions or concerns. From my standpoint the patient can be discharged. The patient does not need surgical follow-up. Attestations Medical Necessity Statement*: Hilary Collinssharona requires ongoing inpatient care per primary care Coding Level of Care Code 34460 Diagnoses Acute cystitis N30.00 Abdominal pain R10.9 Acute appendicitis K35.80
--- NOTE | 2022-09-06 11:48 | PC.CHAP ---
Pastoral Care Encounter/Spiritual Assessment Type of Contact [x] Declined sizing machine tender visit [] Patient/Family/Request visit [] Outpatient visit [] Follow-up visit [] Physician referral [] Code/Alert [] Routine visit [] Staff referral [] Actively dying [] Patient sleeping [] Family support [] [] Out of room [] Palliative care [] [] Receiving care in room [] Pre-surgical visit [] Trauma [] Long length of stay [] ICU visit [] Other: Relational/Emotional Strength [] Patient feels connected with others/family/visitors/staff [] Distress [] Loneliness/isolation [] Abandonment Spirituality of Patient [] Person of [place] [] Attends Hindu of their [place] [] Believes in Prayer [] Reads Bible or Moravian materials [] There are Spiritual issues to be addressed Telephone Order Clerk Interventions [x] Prayer [] Active listening [] Non-anxious presence [] Spiritual/emotional support [] Crisis/trauma care [] Spiritual counseling [] Bereavement support [] Provided bereavement packet [] Provided Bible/devotional materials [] Provided toy/stuffed animal, coloring book to patient or family member [] Provided Communion [] Anointing/[place] [] Salvation [] Completed spiritual assessment [] Other: Impact on Illness or Injury [] Angry [] Fearful [] Anxious [] Often cries [] Exhaustion [] Unable to work [] Unable to attend restorationist [] Unable to walk/stand [] Unable to read [] Unable to drive [] Unable to eat/drink [] Unable to sleep [] Unable to be with family [] Patient intubated [] Other: Summary Time spent with patient
--- NOTE | 2022-09-06 15:19 | PM.PN ---
Subjective Subjective: She overall is feeling better. Denies abdominal pain. Has been having some dysuria and blood-tinged urine. Some back pain. No nausea vomiting or diarrhea. Vitals/I&O/Wt Last Vital Signs Temp 98.3 F 09/06/22 11:00 Pulse 74 09/06/22 13:05 Resp 18 09/06/22 13:05 BP 139/93 09/06/22 11:00 Pulse Ox 94 09/06/22 13:05 O2 Del Method 09/06/22 13:05 09/06/22 09/06/22 09/06/22 06:59 14:59 22:59 Intake Total 1150 / 1450 1050 / 1050 Balance 1150 / 1450 1050 / 1050 Weight last 48 hrs Weight 102.058 kg Physical Exam Narrative: at bedside. Const: COMMON NORMALS: patient oriented x3 and alert GENERAL APPEARANCE: cooperative ORIENTATION/CONSCIOUSNESS: Yes awake HENMT: COMMON NORMALS: oropharynx normal Neck/C-Spine: COMMON NORMALS: no JVD Resp: COMMON NORMALS: normal respiratory effort and clear to auscultation bilaterally AUSCULTATION: clear to auscultation bilaterally Cardio: COMMON NORMALS: no JVD, regular rhythm, S1 normal heart sound present, S2 normal heart sound present and No murmurs present (Cardio) RHYTHM: regular rhythm HEART SOUNDS: S1 normal heart sound present and S2 normal heart sound present GI: COMMON NORMALS: Normal to inspection, nondistended, normoactive bowel sounds present, Soft to palpation and non-tender PALPATION: Yes Soft to palpation OTHER: Stewart negative. Extremity: COMMON NORMALS: no joint enlargement and no pedal edema Neuro: COMMON NORMALS: patient oriented x3 and moves all extremities SENSORIUM/ORIENTATION: Yes alert Skin: COMMON NORMALS: no rashes or lesions noted GENERAL SKIN EXAM: no rashes or lesions noted Data 09/06/22 05:33 09/06/22 08:38 Micro: Microbiology 09/05/22 18:17 Blood Culture - Preliminary Blood SPECIMEN COLLECTED 09/05/22 18:13 Blood Culture - Preliminary Blood SPECIMEN COLLECTED A&P Assessment and plan (1) Acute cystitis: Continue aztreonam. Add urine culture. (2) Abdominal pain: Surgical assessment no surgical intervention needed at this time. Low suspicion for appendicitis. Discussed with her also findings of gallbladder with some distention. Minimal cholelithiasis. She has been having normal right upper quadrant pain. Stewart's negative. Liver parameters are normal. She will let us know in case there is change of symptoms by tomorrow. Otherwise if continues to do well could possibly return home tomorrow. Is noted to have constipation. Continue gentle IV hydration. Add MiraLAX. (3) Hematuria: Plan Hematuria related to complicated UTI, no kidney stones, if her hematuria does not resolve she will need outpatient urology follow-up Attestations Medical Necessity Statement*: Hospitalist for reassessment with treatment of cystitis with hematuria, as well as reassessment after abdominal pain with borderline imaging findings. Coding Level of Care Code Acute Code for [facility] Diagnoses Acute cystitis N30.00 Abdominal pain R10.9 Hematuria R31.9
[2022-09-06] MEDS: aspirin 325 mg EC Tablet PO (16:31)
[2022-09-07 02:03] LABS: Basophils # 0.1 10^3/uL (0.0-0.1); Basophils % 0.9 %; Eosinophils # 0.3 10^3/uL (0.0-0.8); Eosinophils % 2.9 %; Hematocrit 43.5 % (37.0-47.0); Hemoglobin 13.5 g/dL (11.5-15.3); Lymphocytes # 4.1 10^3/uL (0.8-4.8); Lymphocytes % 39.8 %; Mean Corpuscular Hemoglobin 27.3 pg (28.0-34.0); Mean Corpuscular Volume 88.1 fl (81-99); Mean Platelet Volume 9.1 fL (7.4-10.4); Monocytes # 1.2 10^3/uL (0.2-0.9); Monocytes % 11.3 %; Neutrophils # 4.63 10^3/uL (1.8-7.7); Neutrophils % 44.6 %; Nucleated Red Blood Cells % 0 %; Platelet Count 364 10^3/cmm (130-400); Red Blood Count 4.94 10^6/uL (4.1-5.3); Red Cell Distribution Width 14.6 % (12.1-15.1); White Blood Count 10.4 10^3/uL (4.0-10.0)
[2022-09-07 02:27] LABS: Alanine Aminotransferase 20 U/L (0-33); Albumin Level 3.5 g/dL (3.5-5.2); Alkaline Phosphatase 64 U/L (35-105); Blood Urea Nitrogen 13 mg/dL (6-20); Calcium 8.5 mg/dL (8.5-10.5); Carbon Dioxide 27 mmol/L (22-29); Chloride 103 mmol/L (98-107); Globulin 2.9 g/dL (1.3-4.6); Glomerular Filtration Rate 57.8 mL/min (90-130); Glucose 100 mg/dL (65-115); Osmolality Calculated 288 mOsm/kg (285-295); Sodium 139 mmol/L (136-145); Total Bilirubin 0.2 mg/dL (0.15-1.2); Total Protein 6.4 g/dL (6.6-8.7)
[2022-09-07 02:36] LABS: Anion Gap 13.1 (5-19); Aspartate Amino Transferase 25 U/L (0-32); Potassium 4.1 mmol/L (3.5-5.1)
[2022-09-07 03:00] VITALS: BP 133/81; PULSE 82; RESP 16; TEMP 36.7; O2SAT 96
--- NOTE | 2022-09-07 07:56 | PC.NURSE ---
Patient didn't want fluids to run after antibiotic was given stating that her site was hurting when she would bend her elbow. Iv was restarted this morning in her hand by Jessica but patient insisted that it hurt and wanted it to be removed which was done by Jessica.
[2022-09-07 08:00] VITALS: BP 152/98; PULSE 65; RESP 18; TEMP 36.6; O2SAT 96; O2SAT 97
[2022-09-07] MEDS: metroNIDAZOLE 500 MG Tablet PO (08:48)
[2022-09-07 12:00] VITALS: BP 153/109; PULSE 70; RESP 16; TEMP 36.6; O2SAT 97
--- NOTE | 2022-09-07 12:17 | PM.DCS ---
Discharge Providers Date of Admission: 09/05/22 18:46 Date of Discharge: September 07, 2022 Attending Provider at Admission: Brown Lou MD Attending Provider at Discharge: Tristan Handy Diagnoses at Discharge Discharge Diagnosis (1) Acute cystitis: Status: Acute (2) Abdominal pain: Status: Acute (3) Hematuria: Status: Acute Reason for Visit Reason for Visit: urinary pain Hospital Course Hospital Course Pleasant 52-year-old lady not currently established with a primary provider having moved to the area, with history of CAD, diastolic CHF, kidney stone, was admitted for cyst management after presenting with dysuria, hematuria, right flank/back pain, on presentation febrile 101.2, has been taking aspirin as she is allergic to Tylenol, 2 episodes of emesis. On presentation UA suggestive of urinary tract infection, was started on aztreonam and empirically Flagyl with abnormality on CT with noted appendiceal tip somewhat dilated to 9.7 mm with some surrounding edema, correlate for possible appendicitis. Gallbladder also noted somewhat distended with possible minimal cholelithiasis. Constipation. Spleen absent with surgical clips and apparent splenule's in the left upper quadrant. Small hiatal hernia. Left abdominal wall omental fat-containing hernia without bowel or inflammation with defect in abdominal wall approximately 11 mm. She was assessed and reassessed by surgery with regards to abdominal pain and abnormal imaging findings and findings were not believed to be secondary to appendicitis and not found to require surgical intervention. She had no right upper quadrant pain or tenderness, Stewart negative, with and liver parameters remain normal. She tolerated oral intake. Urinary symptoms have been subsiding. Urine culture originally did not reflex, was requested, so far showing gram-negative rods on gram stain, culture preliminary, please follow-up final. Incidentally also 1/2 bottles positive for gram-positive cocci in clusters on blood culture 2/2, thought most likely secondary to contamination of the sample, but please follow-up final culture results. She knows to return to the hospital in case of recurrent or persistent concerning symptoms. Follow-up cholelithiasis, consider referral to surgery if becomes symptomatic. Physical Exam Narrative: at bedside. Const: COMMON NORMALS: patient oriented x3 and alert GENERAL APPEARANCE: cooperative ORIENTATION/CONSCIOUSNESS: Yes awake HENMT: COMMON NORMALS: oropharynx normal Neck/C-Spine: COMMON NORMALS: no JVD Resp: COMMON NORMALS: normal respiratory effort and clear to auscultation bilaterally AUSCULTATION: clear to auscultation bilaterally Cardio: COMMON NORMALS: no JVD, regular rhythm, S1 normal heart sound present, S2 normal heart sound present and No murmurs present (Cardio) RHYTHM: regular rhythm HEART SOUNDS: S1 normal heart sound present and S2 normal heart sound present GI: COMMON NORMALS: Normal to inspection, nondistended, normoactive bowel sounds present, Soft to palpation and non-tender PALPATION: Yes Soft to palpation OTHER: Stewart negative. Extremity: COMMON NORMALS: no joint enlargement and no pedal edema Neuro: COMMON NORMALS: patient oriented x3 and moves all extremities SENSORIUM/ORIENTATION: Yes alert Skin: COMMON NORMALS: no rashes or lesions noted GENERAL SKIN EXAM: no rashes or lesions noted Discharge Data Studies Completed and Pending Completed Studies During Hospitalization Category Date Time Status CT kidney stone [id number] Stat Cat Scan 09/05/22 16:14 Completed Pending at discharge Category Date Time Status Blood Culture Stat Lab 09/05/22 18:17 Results Complete Blood Count w/Auto AM LABS Lab 09/08/22 04:00 Ordered Complete Blood Count w/Auto AM LABS Lab 09/09/22 04:00 Ordered Comprehensive Metabolic Panel AM LABS Lab 09/08/22 04:00 Ordered Comprehensive Metabolic Panel AM LABS Lab 09/09/22 04:00 Ordered Urine Culture Routine Lab 09/06/22 10:31 Results Radiology Impressions Abdomen/Pelvis CT 09/05/22 16:14 IMPRESSION: 1. Appendiceal tip is somewhat dilated to 9.7 mm with some surrounding edema, best seen series 4, image 141, please correlate for possible appendicitis. 2. Gallbladder is somewhat distended with possible minimal cholelithiasis, ultrasound could further evaluate this. 3. Constipation. 4. 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 5. Small hiatal hernia. 6. Left abdominal wall omental fat containing hernia without bowel or inflammation, the defect in the abdominal wall measures approximately 11 mm. THIS REPORT CONTAINS FINDINGS THAT MAY BE CRITICAL TO PATIENT CARE. The findings were verbally communicated via telephone conference with Dr. Charles at 6:05 PM AIRPLANE MECHANIC APPRENTICE on 09/05/2022. The findings were acknowledged and understood. Laboratory Results WBC 10.4 10^3/uL (4.0-10.0) H 09/07/22 01:32 RBC 4.94 10^6/uL (4.1-5.3) 09/07/22 01:32 Hgb 13.5 g/dL (11.5-15.3) 09/07/22 01:32 Hct 43.5 % (37.0-47.0) 09/07/22 01:32 MCV 88.1 fl (81-99) 09/07/22 01:32 MCH 27.3 pg (28.0-34.0) L 09/07/22 01:32 MCHC 31.0 g/dL (30.0-36.0) 09/07/22 01:32 RDW 14.6 % (12.1-15.1) 09/07/22 01:32 Plt Count 364 10^3/cmm (130-400) 09/07/22 01:32 MPV 9.1 fL (7.4-10.4) 09/07/22 01:32 Neut % (Auto) 44.6 % 09/07/22 01:32 Lymph % (Auto) 39.8 % 09/07/22 01:32 [place] % (Auto) 11.3 % 09/07/22 01:32 Eos % (Auto) 2.9 % 09/07/22 01:32 Baso % (Auto) 0.9 % 09/07/22 01:32 Neut # (Auto) 4.63 10^3/uL (1.8-7.7) 09/07/22 01:32 Lymph # (Auto) 4.1 10^3/uL (0.8-4.8) 09/07/22 01:32 [place] # (Auto) 1.2 10^3/uL (0.2-0.9) H 09/07/22 01:32 Eos # (Auto) 0.3 10^3/uL (0.0-0.8) 09/07/22 01:32 Baso # (Auto) 0.1 10^3/uL (0.0-0.1) 09/07/22 01:32 Nucleated RBC % (auto) 0 % 09/07/22 01:32 Nucleated RBCs # 0.0 /100WBC 09/07/22 01:32 Sodium 139 mmol/L (136-145) 09/07/22 01:32 Potassium 4.1 mmol/L (3.5-5.1) 09/07/22 01:32 Chloride 103 mmol/L (98-107) 09/07/22 01:32 Carbon Dioxide 27 mmol/L (22-29) 09/07/22 01:32 Anion Gap 13.1 (5-19) 09/07/22 01:32 BUN 13 mg/dL (6-20) 09/07/22 01:32 Creatinine 1.0 mg/dL (0.5-0.9) H 09/07/22 01:32 GFR Calculation 57.8 mL/min (90-130) L 09/07/22 01:32 Glucose 100 mg/dL (65-115) 09/07/22 01:32 Calculated Osmolality 288 mOsm/kg (285-295) 09/07/22 01:32 Calcium 8.5 mg/dL (8.5-10.5) 09/07/22 01:32 Magnesium 2.0 mg/dL (1.7-2.3) 09/06/22 08:38 Total Bilirubin 0.2 mg/dL (0.15-1.2) 09/07/22 01:32 AST 25 U/L (0-32) 09/07/22 01:32 ALT 20 U/L (0-33) 09/07/22 01:32 Alkaline Phosphatase 64 U/L (35-105) 09/07/22 01:32 C-Reactive Protein 12.9 mg/L (0.0-4.9) H 09/06/22 08:38 Total Protein 6.4 g/dL (6.6-8.7) L 09/07/22 01:32 Albumin 3.5 g/dL (3.5-5.2) 09/07/22 01:32 Globulin 2.9 g/dL (1.3-4.6) 09/07/22 01:32 Procalcitonin 0.03 ng/mL (0-0.5) 09/05/22 19:33 TSH 3.73 uIU/mL (0.27-4.20) 09/05/22 19:33 Urine Color Yellow (Yellow) 09/05/22 16:07 Urine Appearance Cloudy (CLEAR) A 09/05/22 16:07 Urine pH 6 (5-7) 09/05/22 16:07 Ur Specific [place] 1.020 (1.005-1.030) 09/05/22 16:07 Urine Protein Neg (Negative) 09/05/22 16:07 Urine Glucose (UA) Norm (Normal) 09/05/22 16:07 Urine Ketones Negative (Negative) 09/05/22 16:07 Urine Blood 3+ (Negative) H 09/05/22 16:07 Urine Nitrate Positive (Negative) H 09/05/22 16:07 Urine Bilirubin Neg (Negative) 09/05/22 16:07 Urine Urobilinogen Neg mg/dL (Negative) 09/05/22 16:07 Ur Leukocyte Esterase 2+ (Negative) H 09/05/22 16:07 Urine RBC 10-15 /hpf (0-2) H 09/05/22 16:07 Urine WBC 55-80 /hpf (0-5) H 09/05/22 16:07 Ur Squamous Epith Cells 40-55 /hpf (0-5) H 09/05/22 16:07 Amorphous Sediment Not Reportable 09/05/22 16:07 Urine Bacteria 2+ /hpf (NONE) H 09/05/22 16:07 Urine Mucus 2+ /hpf 09/05/22 16:07 Vitals Last Vital Signs Temp 97.9 F 09/07/22 08:00 Pulse 65 09/07/22 08:00 Resp 18 09/07/22 08:00 BP 152/98 09/07/22 08:00 Pulse Ox 97 09/07/22 08:00 O2 Del Method 09/07/22 08:00 Discharge Plan Discharge Patient Disposition: Home Condition: Stable Prescriptions: New ciprofloxacin HCl 500 mg tablet 500 mg PO BID Qty: 10 0RF lidocaine 5 % adhesive patch,medicated 1 patch topical Q24H Qty: 15 0RF Rx Instructions: leave on most painful area for up to 12 hrs Discharge Orders: Discharge Order (Routine); Ordered 09/07/22 Ordered By: Tristan Handy Referrals: Walter Bartlett MD [Physician] - 09/12/22 9:00 am (You have a hospital follow up/establishing care with Dr. Bartlett at 9:00 am on September 12, 2022. If you have any questions or need to reschedule please contact them at [phone].) Discharge Diet: Advance as tolerated, Low Cholesterol and Low Fat Discharge Activity: Increase activity as tolerated Patient Instructions: Ciprofloxacin (By mouth), Hemorrhagic Cystitis, Appendicitis (GEN) Activity Restrictions/Additional Instructions: Follow-up with primary provider for reassessment after urinary tract infection, hematuria, in case hematuria not resolving seek referral to urology. Your urine cultures are still pending. Blood culture shows 1/2 bottles gram-positive cocci preliminary is likely may be due to contamination of the sample, however, discuss both cultures with your primary provider. In case of fevers at home, feeling unwell, or any concerning symptoms seek medical attention. Follow-up with your primary doctor regarding also incidental findings with mild distention of gallbladder with possible minimal stones. Maintain low-cholesterol/low-fat diet, in case of right upper quad abdominal symptoms additional evaluation may be needed. Be cautious with use of aspirin as it may promote bleeding. Discharge Attestations Time Spent in Discharge Care*: greater than 30 min Quality Metrics Clinical Quality Measures [ No reported AMI, CVA or VTE this stay] Coding Level of Care Code Acute Code for [facility] Diagnoses Acute cystitis N30.00 Abdominal pain R10.9 Hematuria R31.9
== END 2022-09-07 15:13 | disposition home or self-care (01) | DRG 690 ==
LOC: ER 18:45 → MEDSURG 18:53
PROVIDERS: Family Medicine; Internal Medicine; Admitting Provider Family Medicine; Emergency Provider Emergency Medicine; Visit Provider Internal Medicine
DX: N30.01 Acute cystitis with hematuria (principal); I50.30 Unspecified diastolic (congestive) heart failure; I25.10 Atherosclerotic heart disease of native coronary artery without angina pectoris; K44.9 Diaphragmatic hernia without obstruction or gangrene; Z90.81 Acquired absence of spleen; K43.9 Ventral hernia without obstruction or gangrene; K80.20 Calculus of gallbladder without cholecystitis without obstruction; Z87.442 Personal history of urinary calculi; Z88.0 Allergy status to penicillin; Z91.018 Allergy to other foods
CPT/HCPCS: 36415; 74176; 80048; 80053; 81001; 83735; 84145; 84443; 85025; 86140; 87040; 87077; 87086; 87186; 87205; 96365; 96366; 96367; 96375; 99231; 99255; 99285; G0378; J0744; J1885; J2270; J2405; J3490; J7030

== ENCOUNTER 2022-12-03 15:16 | Observation (INO) | payer BC, SELFPAY ==
[2022-12-03] VITALS (7 sets, daily range): BP systolic 121–160; BP diastolic 88–106; PULSE 69–95; RESP 16–18; TEMP 36.5–36.8; O2SAT 94–97; BMI 36.3
[2022-12-03 15:48] LABS: Basophils # 0.1 10^3/uL (0.0-0.1); Basophils % 0.5 %; Eosinophils # 0.2 10^3/uL (0.0-0.8); Eosinophils % 1.2 %; Hemoglobin 15.1 g/dL (11.5-15.3); Lymphocytes # 2.7 10^3/uL (0.8-4.8); Lymphocytes % 19.2 %; Mean Corpuscular HGB Conc 31.5 g/dL (30.0-36.0); Mean Corpuscular Hemoglobin 27.2 pg (28.0-34.0); Mean Corpuscular Volume 86.3 fl (81-99); Mean Platelet Volume 9.2 fL (7.4-10.4); Monocytes # 1.1 10^3/uL (0.2-0.9); Monocytes % 7.6 %; Neutrophils % 71.1 %; Nucleated Red Blood Cells % 0 %; Platelet Count 347 10^3/cmm (130-400); Red Blood Count 5.56 10^6/uL (4.1-5.3); Red Cell Distribution Width 14.7 % (12.1-15.1); White Blood Count 13.9 10^3/uL (4.0-10.0)
[2022-12-03 16:08] LABS: Alanine Aminotransferase 15 U/L (0-33); Albumin Level 4.1 g/dL (3.5-5.2); Alkaline Phosphatase 66 U/L (35-105); Anion Gap 15.2 (5-19); Aspartate Amino Transferase 17 U/L (0-32); Blood Urea Nitrogen 22 mg/dL (6-20); Calcium 9.6 mg/dL (8.5-10.5); Carbon Dioxide 25 mmol/L (22-29); Chloride 101 mmol/L (98-107); Globulin 3.2 g/dL (1.3-4.6); Glomerular Filtration Rate 74.7 mL/min (90-130); Glucose 92 mg/dL (65-115); Lipase 45 U/L (13-60); Osmolality Calculated 287 mOsm/kg (285-295); Potassium 4.2 mmol/L (3.5-5.1); Sodium 137 mmol/L (136-145); Total Bilirubin 0.4 mg/dL (0.15-1.2); Total Protein 7.3 g/dL (6.6-8.7)
--- NOTE | 2022-12-03 16:31 | CTR_ITS ---
PROCEDURE INFORMATION: Exam: CT Abdomen And Pelvis Without Contrast Exam date and time: 12/03/2022 4:49 PM Age: 52 years old Clinical indication: Abdominal pain; Generalized; Prior surgery; Surgery date: 6+ months; Surgery type: Splenectomy TECHNIQUE: Imaging protocol: Computed tomography of the abdomen and pelvis without contrast. Radiation optimization: All CT scans at this facility use at least one of these dose optimization techniques: automated exposure control; mA and/or kV adjustment per patient size (includes targeted exams where dose is matched to clinical indication); or iterative reconstruction. REPORTING DATA: Count of CT and Cardiac NM exams in prior 12 months: This patient has received 4 known CTs and 0 known cardiac nuclear medicine studies in the 12 months prior to the current study. COMPARISON: CT kidney stone [id number] 09/05/2022 5:32 PM RADIATION DOSE METRICS: Total DLP (mGy-cm): 951.59 FINDINGS: Liver: Normal. No mass. Gallbladder and bile ducts: Normal. No calcified stones. No ductal dilation. Pancreas: Normal. No ductal dilation. Spleen: Splenectomy. Prominent splenules noted. Adrenal glands: Normal. No mass. Kidneys and ureters: No renal stones. No hydronephrosis. Stomach and bowel: Scattered colonic diverticulosis. No obstruction. No mucosal thickening. Appendix: Dilated appendix measuring up to 1.4 cm with mucosal thickening. Surrounding inflammation and trace free fluid noted. No evidence of perforation or periappendiceal abscess. Intraperitoneal space: No free air. No significant fluid collection. Vasculature: Unremarkable. No abdominal aortic aneurysm. Lymph nodes: Unremarkable. No enlarged lymph nodes. Urinary bladder: Unremarkable as visualized. Reproductive: Unremarkable as visualized. Bones/joints: No acute fracture. Soft tissues: Unremarkable. CT/CT abdomen pelvis wo con [id number] IMPRESSION: Findings consistent with acute appendicitis.
--- NOTE | 2022-12-03 16:34 | W.ED.ABDPA2 ---
HPI - Abdominal Pain General: Chief Complaint: Abdominal Pain Stated Complaint: Right side Abd pains Time Seen by Provider: 12/03/22 15:54 Source: patient Mode of arrival: ambulatory History of Present Illness: 52-year-old female presents to the emergency room with right lower quadrant abdominal pain that is worse when she moves it began this morning woke up with nausea. She is not had any vomiting she did describe some dry heaving no diarrhea. She denies any urinary symptoms. No hematochezia or melena. She subjectively has had a fever. She tells me she has had similar pain in the past and was told it might be her appendix she treated with a naturopathic doctor and never had surgery. This was evidently several years ago. No previous abdominal surgeries. MD elicited complaint: abdominal pain Pertinent past history: none Onset (ago): hour(s) Location: [facility] Severity: moderate Quality: cramping Exacerbating factors: nothing Relieving factors: nothing Associated Symptoms: Reports nausea; Denies anorexia, belching, bloating, change in bowel habits, change in stool character, chills, coffee ground emesis, constipation, GI cramping, diarrhea, dyspepsia, dysuria, excessive flatus, fever(s), heartburn, hematochezia, hematuria, hematemesis, fecal incontinence, loose stools, melena, poor appetite, syncope and vomiting Review of Systems Const: Denies: fever(s), chills, fatigue or malaise ENMT: Denies: throat pain, ear or mastoid pain, nasal discharge or nasal congestion Card: Denies: chest pain, palpitations, irregular heart rhythm, edema or syncope Resp: Denies: dyspnea, productive cough or non-productive cough GI: Reports: abdominal pain and nausea; Denies: vomiting, hematemesis, coffee ground emesis, heartburn, diarrhea, constipation, bloating, GI cramping, belching, excessive flatus, fecal incontinence, change in bowel habits, change in stool character, hematochezia or melena : Denies: dysuria, urinary frequency, urinary urgency or hematuria Skin/Breast: Denies: rash or pruritus PFSH ED PFSH: Medical History Coronary artery disease Diastolic congestive heart failure Kidney stone No pertinent family history Surgical History H/O abdominoplasty H/O splenectomy Family History Denies family history of CAD (coronary artery disease) Social History Smoking and tobacco status: never smoked Physical Exam Const: GENERAL APPEARANCE: cooperative and comfortable ORIENTATION/CONSCIOUSNESS: Yes awake, Yes oriented to person, Yes oriented to place and Yes oriented to time HENMT: COMMON NORMALS: normocephalic, atraumatic and hearing grossly normal bilaterally HEAD & SCALP: normocephalic and atraumatic Resp: COMMON NORMALS: normal respiratory effort, No retractions, No use of accessory muscles and clear to auscultation bilaterally AUSCULTATION: clear to auscultation bilaterally Cardio: COMMON NORMALS: regular rate, regular rhythm and No murmurs present (Cardio) RATE: regular rate RHYTHM: regular rhythm GI: COMMON NORMALS: Soft to palpation and No hepatosplenomegaly present AUSCULTATION: Yes normoactive bowel sounds PALPATION: Yes Soft to palpation, No Tenderness to palpation present (GI), No Guarding due to palpation present (GI) and Yes No hepatosplenomegaly present : COMMON NORMALS: Yes no CVA tenderness BLADDER/KIDNEY EXAM: Yes no CVA tenderness Back/Pelvis: COMMON NORMALS: no CVA tenderness Extremity: COMMON NORMALS: normal to inspection, capillary refill normal, no clubbing, cyanosis or edema, no calf tenderness and no pedal edema Neuro: SENSORIUM/ORIENTATION: Yes oriented to person, Yes oriented to place and Yes oriented to time Skin: COMMON NORMALS: no rashes or lesions noted GENERAL SKIN EXAM: no rashes or lesions noted Course Vital Signs: Vital signs: Vital Signs Temperature 98.2 F 12/03/22 15:26 Pulse Rate 88 12/03/22 15:26 Respiratory Rate 18 12/03/22 15:26 Blood Pressure 160/102 12/03/22 15:26 Pulse Oximetry 96 12/03/22 15:26 Oxygen Delivery Me thod Room Air 12/03/22 15:26 MDM - Abdominal Pain Medical Decision Making Acute appendicitis by CT with leukocytosis. We will give dose of Zosyn of contacted Dr. Heaton he will come to see the patient. Medical Records I reviewed the patient's medical records. Lab Data I reviewed the patient's lab results. 12/03/22 15:38 12/03/22 15:38 Labs/Radiology: Radiology Impressions Abdomen/Pelvis CT 12/03/22 16:31 IMPRESSION: Findings consistent with acute appendicitis. ADDENDUM: 12/03/22 [id number] CURT PANDEY acknowledged receipt of report at 12/03/2022 5:27 PM CDT. Laboratory Results WBC 13.9 10^3/uL (4.0-10.0) H 12/03/22 15:38 RBC 5.56 10^6/uL (4.1-5.3) H 12/03/22 15:38 Hgb 15.1 g/dL (11.5-15.3) 12/03/22 15:38 Hct 48.0 % (37.0-47.0) H 12/03/22 15:38 MCV 86.3 fl (81-99) 12/03/22 15:38 MCH 27.2 pg (28.0-34.0) L 12/03/22 15:38 MCHC 31.5 g/dL (30.0-36.0) 12/03/22 15:38 RDW 14.7 % (12.1-15.1) 12/03/22 15:38 Plt Count 347 10^3/cmm (130-400) 12/03/22 15:38 MPV 9.2 fL (7.4-10.4) 12/03/22 15:38 Neut % (Auto) 71.1 % 12/03/22 15:38 Lymph % (Auto) 19.2 % 12/03/22 15:38 [place] % (Auto) 7.6 % 12/03/22 15:38 Eos % (Auto) 1.2 % 12/03/22 15:38 Baso % (Auto) 0.5 % 12/03/22 15:38 Neut # (Auto) 9.90 10^3/uL (1.8-7.7) H 12/03/22 15:38 Lymph # (Auto) 2.7 10^3/uL (0.8-4.8) 12/03/22 15:38 [place] # (Auto) 1.1 10^3/uL (0.2-0.9) H 12/03/22 15:38 Eos # (Auto) 0.2 10^3/uL (0.0-0.8) 12/03/22 15:38 Baso # (Auto) 0.1 10^3/uL (0.0-0.1) 12/03/22 15:38 Nucleated RBC % (auto) 0 % 12/03/22 15:38 Nucleated RBCs # 0.0 /100WBC 12/03/22 15:38 Sodium 137 mmol/L (136-145) 12/03/22 15:38 Potassium 4.2 mmol/L (3.5-5.1) 12/03/22 15:38 Chloride 101 mmol/L (98-107) 12/03/22 15:38 Carbon Dioxide 25 mmol/L (22-29) 12/03/22 15:38 Anion Gap 15.2 (5-19) 12/03/22 15:38 BUN 22 mg/dL (6-20) H 12/03/22 15:38 Creatinine 0.8 mg/dL (0.5-0.9) 12/03/22 15:38 GFR Calculation 74.7 mL/min (90-130) L 12/03/22 15:38 Glucose 92 mg/dL (65-115) 12/03/22 15:38 Calculated Osmolality 287 mOsm/kg (285-295) 12/03/22 15:38 Calcium 9.6 mg/dL (8.5-10.5) 12/03/22 15:38 Total Bilirubin 0.4 mg/dL (0.15-1.2) 12/03/22 15:38 AST 17 U/L (0-32) 12/03/22 15:38 ALT 15 U/L (0-33) 12/03/22 15:38 Alkaline Phosphatase 66 U/L (35-105) 12/03/22 15:38 Total Protein 7.3 g/dL (6.6-8.7) 12/03/22 15:38 Albumin 4.1 g/dL (3.5-5.2) 12/03/22 15:38 Globulin 3.2 g/dL (1.3-4.6) 12/03/22 15:38 Lipase 45 U/L (13-60) 12/03/22 15:38 Urine Color Yellow (Yellow) 12/03/22 16:43 Urine Appearance Cloudy (CLEAR) A 12/03/22 16:43 Urine pH 5 (5-7) 12/03/22 16:43 Ur Specific [place] 1.015 (1.005-1.030) 12/03/22 16:43 Urine Protein Neg (Negative) 12/03/22 16:43 Urine Glucose (UA) Norm (Normal) 12/03/22 16:43 Urine Ketones Negative (Negative) 12/03/22 16:43 Urine Blood Neg (Negative) 12/03/22 16:43 Urine Nitrate Negative (Negative) 12/03/22 16:43 Urine Bilirubin Neg (Negative) 12/03/22 16:43 Urine Urobilinogen Norm mg/dL (Negative) 12/03/22 16:43 Ur Leukocyte Esterase Negative (Negative) 12/03/22 16:43 Amorphous Sediment Not Reportable 12/03/22 16:43 Discharge Plan Discharge Patient Disposition: Placed in Observation Clinical Impression: Acute appendicitis Coding Level of Care Code ED Warehouse Packaging Supervisor for Loyda Ochoa
[2022-12-03 17:36] LABS: Add Urine Microscopic? YES; Bilirubin Urine Neg (Negative); Blood Urine Neg (Negative); Glucose Urine UA Norm (Normal); Ketones Urine Negative (Negative); Leukocyte Esterase Urine Negative (Negative); Nitrate Urine Negative (Negative); Protein Urine Neg (Negative); Specific Gravity, Urine 1.015 (1.005-1.030); Urine Appearance Cloudy (CLEAR); Urine Color Yellow (Yellow); Urobilinogen Urine Norm (Negative); pH Urine 5 (5-7)
[2022-12-03 17:46] LABS: RBC Urine 0-4 /hpf (0-2)
[2022-12-03 17:49] LABS: Bacteria Urine 2+ /hpf
[2022-12-03] MEDS: ciprofloxacin 400 MG/200 ML PREMIX 200 MG IV (18:04)
[2022-12-03] MEDS: metroNIDAZOLE IV 500 MG/100 ML PREMIX 100 MG IV (18:05)
--- NOTE | 2022-12-03 19:45 | PM.HP ---
Providers/Chief Complaint Admitting Physician: Fady Heaton DO Chief Complaint: Right side Abd pains History of Present Illness Hilary Pappas is a 52 year old female who presents with a 1 day history of right lower quadrant abdominal pain. The pain is sharp and constant. Palpation makes pain worse. Nothing makes pain better. Pain does not radiate. The pain has not improved since it began. She was unable to walk at first. CT shows acute appendicitis. She had similar findings 3 months ago and reports that she was cleared by her bonding molder. She did take 7 to 10 days of antibiotics last time however. She is not wanting to proceed with appendectomy. I did encourage appendectomy as this is the most common treatment. She did say she would stay overnight for antibiotics. Review of Systems General: Reports: 10 or more systems reviewed and unremarkable except in HPI and below Medications/Allergies Home Medications Medication Instructions Recorded Confirmed Last Taken Type albuterol sulfate 90 mcg/actuation 2 puff inhalation QID PRN 12/03/22 12/03/22 Unknown History aerosol inhaler Shortness Of Breath Allergies Allergy/AdvReac Type Severity Reaction Status Date / Time acetaminophen [From Tylenol] Allergy ALGY-Anaphy Verified 12/03/22 16:14 laxis nitroglycerin Allergy ADR-Headach Verified 12/03/22 16:14 e Penicillins Allergy ALGY-Redness Verified 12/03/22 16:14 of Skin walnut Allergy Unknown Verified 12/03/22 16:14 PFSH Acute PFSH: Medical History Coronary artery disease Diastolic congestive heart failure Kidney stone No pertinent family history Surgical History H/O abdominoplasty H/O splenectomy Family History Denies family history of CAD (coronary artery disease) Social History Smoking and tobacco status: never smoked Vitals/I&O/Wt Last Vital Signs Temp 97.8 F 12/04/22 08:00 Pulse 60 12/04/22 08:00 Resp 16 12/04/22 08:00 BP 105/66 12/04/22 08:00 Pulse Ox 96 12/04/22 08:00 O2 Del Method Room Air 12/04/22 08:00 12/03/22 12/04/22 12/04/22 22:59 06:59 14:59 Intake Total 300 / 300 300 / 600 Balance 300 / 300 300 / 600 Weight last 48 hrs Weight 235 lb 11.2 oz Weight 225 lb Physical Exam Narrative: General : Patient is well developed , no acute distress, oriented x3 Head : Normal cephalic, a-traumatic. Ears : Pinnae and external canal are normal. Hearing is normal. Eyes : PERRLA, Sclera and injection are normal. No conjunctival discharge. Nose : Mucous membranes are without erythema. Throat : buccal mucosa is normal, gums are without significant recession or hypertrophy. Lungs : Equal chest rise bilaterally, no use of accessory muscles, trachea is midline. Cor : Rate and rhythm are normal. Abdomen : Soft, ND, right lower quadrant tenderness, negative Rovsing's, no g/r/m Extremities : No edema, no cyanosis or clubbing, dorsalis pedis pulses are present bilaterally, non-tender to palpation of calves. Upper extremities are normal bilaterally. Back : non-tender to palpation, no CVA tenderness. Neuro : CN II - XII intact, Upper and lower extremities have equal and full strength Data 12/04/22 07:45 12/04/22 07:45 A&P Assessment and plan (1) Acute appendicitis: Plan Placed in observation IV antibiotics I strongly encourage appendectomy but she is refusing at this time. We will reevaluate in the morning. Attestations Medical Necessity Statement*: Patient requires at least 1 night in the hospital for IV antibiotics and possible appendectomy Coding Level of Care Code Acute Code for [facility] Diagnoses Acute appendicitis K35.80
[2022-12-03] MEDS: ondansetron 2 mg/ML SDV 2 mL 4 MG IVP (20:14)
[2022-12-03] MEDS: HYDROmorphone 1 mg/mL INJ 1 mL IVP (20:14)
[2022-12-03] MEDS: diphenhydrAMINE 25 mg Capsule PO (22:04)
--- NOTE | 2022-12-03 22:12 | PC.NURSE ---
Patient asking for Benadryl for itching and something to drink. Patient states that she is not wanting surgery. Dr. Heaton notified. PRN Benadryl ordered and NPO at midnight diet ordered.
[2022-12-04] VITALS: BP 137/87; PULSE 72; RESP 18; TEMP 36.5; O2SAT 98
[2022-12-04] MEDS: metroNIDAZOLE IV 500 MG/100 ML PREMIX 100 MG IV (01:23)
[2022-12-04 04:00] VITALS: BP 142/93; PULSE 78; RESP 18; TEMP 36.8; O2SAT 94
[2022-12-04] MEDS: ciprofloxacin 400 MG/200 ML PREMIX 200 MG IV (05:07)
[2022-12-04 06:09] VITALS: RESP 16
[2022-12-04] MEDS: morphine 4 mg/mL SDV 1 mL IVP (06:09)
--- NOTE | 2022-12-04 06:25 | PC.NURSE ---
Patient refusing to wear ID and allergy bracelet. Patient educated this is for her safety. Patient states I can't tolerate them, they make me itchy. Patient educated again that it is a huge safety risk to not wear them. Patient states no, I'm not wearing them.
[2022-12-04 08:00] VITALS: BP 105/66; PULSE 60; RESP 16; TEMP 36.6; O2SAT 96
[2022-12-04 08:10] LABS: Basophils # 0.1 10^3/uL (0.0-0.1); Basophils % 0.6 %; Eosinophils # 0.3 10^3/uL (0.0-0.8); Eosinophils % 2.5 %; Hematocrit 44.7 % (37.0-47.0); Hemoglobin 13.9 g/dL (11.5-15.3); Lymphocytes # 3.2 10^3/uL (0.8-4.8); Lymphocytes % 32.3 %; Mean Corpuscular HGB Conc 31.1 g/dL (30.0-36.0); Mean Corpuscular Hemoglobin 27.4 pg (28.0-34.0); Mean Platelet Volume 9.4 fL (7.4-10.4); Monocytes # 1.2 10^3/uL (0.2-0.9); Monocytes % 11.5 %; Neutrophils # 5.29 10^3/uL (1.8-7.7); Neutrophils % 52.8 %; Nucleated Red Blood Cells % 0 %; Platelet Count 316 10^3/cmm (130-400); Red Blood Count 5.08 10^6/uL (4.1-5.3); Red Cell Distribution Width 14.8 % (12.1-15.1)
[2022-12-04 08:25] LABS: Blood Urea Nitrogen 14 mg/dL (6-20); Calcium 9.3 mg/dL (8.5-10.5); Carbon Dioxide 27 mmol/L (22-29); Chloride 103 mmol/L (98-107); Glomerular Filtration Rate 74.7 mL/min (90-130); Glucose 94 mg/dL (65-115); Osmolality Calculated 284 mOsm/kg (285-295); Sodium 137 mmol/L (136-145)
[2022-12-04 08:27] LABS: Anion Gap 11.5 (5-19); Potassium 4.5 mmol/L (3.5-5.1)
--- NOTE | 2022-12-04 10:34 | PC.NURSE ---
This nurse was approached by patients and notified me that they will be leaving AMA. This nurse asked the patient her reasoning as to wanting to leave. Patient stated We have a ankush show we are trying to make it to in [place]. This nurse asked patient if she understood the extent of her diagnosis in which she explained that she was aware. then said, Even if she does have to have surgery, we won't be doing that here. I will take her up there. This nurse called and notified Dr. Melendez psychology assistant, Mary. This nurse got an AMA form and took it back to patients room, however, patient nor spouse was in room. I walked the med surg floor, 1st floor and parking lot and was unable to locate patient. Attempted to contact all numbers listed in patient chart and was unsuccessful. Incident report filed. /sk
--- NOTE | 2022-12-04 10:55 | PC.CHAP ---
Pastoral Care Encounter/Spiritual Assessment Type of Contact [] Declined call center coordinator visit [] Patient/Family/Request visit [] Outpatient visit [] Follow-up visit [] Physician referral [] Code/Alert [x] Routine visit [] Staff referral [] Actively dying [x] Patient sleeping [] Family support [] [] Out of room [] Palliative care [] [] Receiving care in room [] Pre-surgical visit [] Trauma [] Long length of stay [] ICU visit [] Other: Relational/Emotional Strength [] Patient feels connected with others/family/visitors/staff [] Distress [] Loneliness/isolation [] Abandonment Spirituality of Patient [] Person of [place] [] Attends Synagogue of their [place] [] Believes in Prayer [] Reads Bible or Bahai materials [] There are Spiritual issues to be addressed Sales Trader Interventions [] Prayer [] Active listening [] Non-anxious presence [] Spiritual/emotional support [] Crisis/trauma care [] Spiritual counseling [] Bereavement support [] Provided bereavement packet [] Provided Bible/devotional materials [] Provided toy/stuffed animal, coloring book to patient or family member [] Provided Communion [] Anointing/Dannebrog [] Salvation [] Completed spiritual assessment [] Other: Impact on Illness or Injury [] Angry [] Fearful [] Anxious [] Often cries [] Exhaustion [] Unable to work [] Unable to attend faith [] Unable to walk/stand [] Unable to read [] Unable to drive [] Unable to eat/drink [] Unable to sleep [] Unable to be with family [] Patient intubated [] Other: Summary Time spent with patient
== END 2022-12-04 10:15 | disposition left against medical advice (07) ==
LOC: ER 17:38 → MEDSURG 20:54
PROVIDERS: Emergency Medicine; Admitting Provider Surgery; Emergency Provider Family Medicine; Visit Provider Surgery
DX: K35.80 Unspecified acute appendicitis (principal); I50.30 Unspecified diastolic (congestive) heart failure; I25.10 Atherosclerotic heart disease of native coronary artery without angina pectoris; Z88.0 Allergy status to penicillin
CPT/HCPCS: 36415; 74176; 80048; 80053; 81001; 83690; 85025; 96365; 96367; 96375; 96376; 99285; G0378; J0744; J1170; J2270; J2405; J3490

== ENCOUNTER 2022-12-13 19:29 | Emergency (ER) | payer BC, SELFPAY ==
[2022-12-13 19:35] VITALS: BP 178/100; PULSE 82; RESP 18; TEMP 36.4; O2SAT 97
--- NOTE | 2022-12-13 19:48 | W.ED.ASTHMA ---
HPI - Asthma General: Chief Complaint: Asthma Stated Complaint: asthma Time Seen by Provider: 12/13/22 19:43 History of Present Illness: 52-year-old female comes in today with shortness of breath. Patient has been using her albuterol but does not seem to be getting control of her asthma. Patient denies any other symptoms. Patient denies fever, nausea vomiting, chest pain or signs of infection. Patient only uses albuterol as needed for asthma. Associated symptoms: Deny chest pain or fever(s) Review of Systems General: Reports: 10 or more systems reviewed and unremarkable except in HPI and below Const: Denies: fever(s) Card: Denies: chest pain Resp: Reports: dyspnea GI: Denies: nausea or vomiting Skin/Breast: Denies: rash PFSH ED PFSH: Medical History Coronary artery disease Diastolic congestive heart failure Kidney stone No pertinent family history Surgical History H/O abdominoplasty H/O splenectomy Family History Denies family history of CAD (coronary artery disease) Social History Smoking and tobacco status: never smoked Physical Exam Const: COMMON NORMALS: alert HENMT: COMMON NORMALS: normocephalic HEAD & SCALP: normocephalic MOUTH: Normal oral and palatal mucosa present Neck/C-Spine: COMMON NORMALS: full ROM Resp: COMMON NORMALS: normal respiratory effort AUSCULTATION: wheezes and diminished lung sounds Cardio: COMMON NORMALS: regular rate and regular rhythm RATE: regular rate RHYTHM: regular rhythm GI: COMMON NORMALS: non-tender Extremity: COMMON NORMALS: no pedal edema Neuro: SENSORIUM/ORIENTATION: Yes alert Skin: COMMON NORMALS: turgor normal GENERAL SKIN EXAM: turgor normal Course Vital Signs: Vital signs: Vital Signs Temperature 97.6 F 12/13/22 19:35 Pulse Rate 75 12/13/22 20:53 Respiratory Rate 16 12/13/22 20:53 Blood Pressure 146/102 12/13/22 20:53 Pulse Oximetry 95 12/13/22 20:53 Oxygen Delivery Me thod Room Air 12/13/22 20:09 MDM - Asthma Medical Decision Making 52-year-old female comes in today for complaints of shortness of breath and exacerbation of asthma. On exam patient appears nontoxic. Patient does have decreased air sounds with inspiratory wheezes. Skin is warm and dry. Vital signs are normal. Except for elevated blood pressure. Differential diagnosis includes pneumonia, pneumothorax, exacerbation of asthma. Chest x-ray was unremarkable. Patient was treated with 10 mg dexamethasone IM, and albuterol with ipratropium nebulizer treatment. Patient had significant improvement and respiratory difficulty. Patient be continued on home medications including inhalers and steroid burst. Patient reported understanding of care plan and need for follow-up or return to the ER. Lab Data Radiology Impressions Chest X-Ray 12/13/22 19:52 IMPRESSION: No acute findings. Discharge Plan Discharge Patient Disposition: Home Clinical Impression: Asthma with acute exacerbation Qualifiers: Asthma severity: mild Asthma persistence: intermittent Qualified Code(s): J45.21 - Mild intermittent asthma with (acute) exacerbation Condition: Stable Prescriptions: New ipratropium-albuterol 0.5 mg-3 mg(2.5 mg base)/3 mL solution for nebulization 3 ml inhalation Q6H Qty: 180 0RF prednisone 20 mg tablet 20 mg PO BID 5 Days Qty: 10 0RF fluticasone propion-salmeterol 100-50 mcg/dose blister with device 1 inh inhalation BID Qty: 60 0RF Continued albuterol sulfate 90 mcg/actuation Hfa Aerosol Inhaler 2 puff INHALATION QID PRN (Reason: Shortness Of Breath) Qty: 16 0RF Discharge Orders: Discharge ED (Routine); Ordered 12/13/22 Ordered By: Junior Tomlin Discharge Diet: Usual diet Discharge Activity: Increase activity as tolerated Patient Instructions: Asthma (ED) Activity Restrictions/Additional Instructions: Use medication as directed. Drink plenty of water and fluids. Follow-up with primary care for further instructions. Return to ED for new concerns or worsening symptoms. Coding Level of Care Code ED Hub Cutter Apprentice for Loyda Ochoa
--- NOTE | 2022-12-13 19:52 | XRR_ITS ---
PROCEDURE INFORMATION: Exam: XR Chest Exam date and time: 12/13/2022 8:02 PM Age: 52 years old Clinical indication: Shortness of breath; Additional info: Dyspnea TECHNIQUE: Imaging protocol: Radiologic exam of the chest. Views: 1 view. COMPARISON: CR XR chest 1V portable [id number] 12/10/2021 12:29 AM FINDINGS: Lungs: Unremarkable. No consolidation. Pleural spaces: Unremarkable. No pleural effusion. No pneumothorax. Heart/Mediastinum: Unremarkable. No cardiomegaly. Bones/joints: Unremarkable. XR/XR chest 1V portable [id number] IMPRESSION: No acute findings.
[2022-12-13] MEDS: ipratropium-albuterol 3 mL Neb INHALATION (20:08)
[2022-12-13 20:09] VITALS: PULSE 68; RESP 20; O2SAT 96
[2022-12-13 20:22] VITALS: BP 137/115; PULSE 70; RESP 16; O2SAT 97
[2022-12-13] MEDS: dexamethasone 10 mg/mL INJ IM (20:25)
[2022-12-13 20:53] VITALS: BP 146/102; PULSE 75; RESP 16; O2SAT 95
--- NOTE | 2022-12-22 09:24 | DCPLANNER ---
TCM called patient due to no primary care physician - no answer at this time.
== END 2022-12-13 20:54 | disposition home or self-care (01) ==
PROVIDERS: Emergency Provider Nurse Practitioner Family
DX: J45.21 Mild intermittent asthma with (acute) exacerbation (principal); I25.10 Atherosclerotic heart disease of native coronary artery without angina pectoris; I50.30 Unspecified diastolic (congestive) heart failure
CPT/HCPCS: 71045; 94640; 96372; 96374; 99284; J1100

== ENCOUNTER 2023-02-16 19:20 | Emergency (ER) | payer BC, SELFPAY ==
[2023-02-16] VITALS (10 sets, daily range): BP systolic 118–172; BP diastolic 97–131; PULSE 78–96; RESP 16–28; TEMP 36.8; O2SAT 92–98; BMI 37.9
--- NOTE | 2023-02-16 19:30 | ECG_ITS ---
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 Measurements Intervals [place] Rate: 92 P: 13 [place]: 159 QRS: 6 QRSD: 96 T: 29 QT: 367 QTc: 455 Interpretive Statements SINUS RHYTHM WITH OCCASIONAL VENTRICULAR PREMATURE COMPLEXES POSSIBLE ANTERIOR MYOCARDIAL INFARCTION , OF INDETERMINATE AGE [30 ms Q WAVE IN V3/V4, OR R < 0.2 mV IN V4] No previous ECG available for comparison Electronically Signed On 02-17-2023 21:30:37 CDT by Thuy Guevara M.D. [id number]
--- NOTE | 2023-02-16 19:33 | XRR_ITS ---
PROCEDURE INFORMATION: Exam: XR Chest Exam date and time: 02/16/2023 8:22 PM Age: 52 years old Clinical indication: Pain; Chest pressure; Additional info: Chest pain TECHNIQUE: Imaging protocol: Radiologic exam of the chest. Views: 1 view. COMPARISON: CR XR chest 1V portable [id number] 12/13/2022 8:02 PM FINDINGS: Lungs: Unremarkable. No consolidation. Pleural spaces: Unremarkable. No pleural effusion. No pneumothorax. Heart/Mediastinum: Unremarkable. No cardiomegaly. Bones/joints: Unremarkable. XR/XR chest 1V portable [id number] IMPRESSION: No acute findings.
[2023-02-16] MEDS: aspirin 81 mg Chew Tablet 324 MG PO (20:10)
[2023-02-16 20:28] LABS: Basophils # 0.1 10^3/uL (0.0-0.1); Basophils % 0.8 %; Eosinophils # 0.3 10^3/uL (0.0-0.8); Eosinophils % 2.8 %; Hematocrit 46.8 % (37.0-47.0); Hemoglobin 14.7 g/dL (11.5-15.3); Lymphocytes % 32.9 %; Mean Corpuscular HGB Conc 31.4 g/dL (30.0-36.0); Mean Corpuscular Hemoglobin 27.1 pg (28.0-34.0); Mean Corpuscular Volume 86.3 fl (81-99); Mean Platelet Volume 8.7 fL (7.4-10.4); Monocytes # 0.8 10^3/uL (0.2-0.9); Neutrophils # 4.95 10^3/uL (1.8-7.7); Neutrophils % 54.2 %; Nucleated Red Blood Cells % 0 %; Platelet Count 371 10^3/cmm (130-400); Red Blood Count 5.42 10^6/uL (4.1-5.3); Red Cell Distribution Width 14.2 % (12.1-15.1); White Blood Count 9.1 10^3/uL (4.0-10.0)
[2023-02-16] MEDS: ondansetron 2 mg/ML SDV 2 mL 4 MG IVP (20:30)
[2023-02-16] MEDS: morphine 4 mg/mL SDV 1 mL IVP (20:32)
--- NOTE | 2023-02-16 20:43 | W.ED.CHESTPA ---
HPI - Chest Pain General: Chief Complaint: Chest Pain Stated Complaint: Chest Pains Time Seen by Provider: 02/16/23 19:39 Source: patient History of Present Illness: 52-year-old female patient with a history of diastolic heart failure. She does not actually have a history of coronary disease she tells me. No stents etc. to her heart. She presents with chest discomfort that is sharp, midsternal. Radiates into her back to some degree. She is not overly short of breath with it. No nausea or vomiting. No fever. No cough. MD complaint: chest pain Pertinent past history: other Onset (ago): hour(s) Timing of current episode: episodic Prior episodes: Yes Onset: during rest Pain location: substernal Pain radiation: back Relieving factors: nothing Exacerbating factors: exertion Associated symptoms: Deny abdominal pain, diaphoresis, dyspnea, fever(s), leg edema, nausea, palpitations or vomiting Treatment prior to arrival: none Review of Systems Const: Denies: fever(s) or diaphoresis ENMT: Denies: throat pain Card: Reports: chest pain; Denies: palpitations, irregular heart rhythm or swelling of feet/ankles Resp: Denies: dyspnea GI: Denies: abdominal pain, nausea or vomiting PFSH ED PFSH: Medical History Coronary artery disease Diastolic congestive heart failure Kidney stone No pertinent family history Surgical History H/O abdominoplasty H/O splenectomy Family History Denies family history of CAD (coronary artery disease) Social History Smoking and tobacco status: never smoked Physical Exam Const: GENERAL APPEARANCE: cooperative and anxious; not ill appearing and not frail appearing HENMT: COMMON NORMALS: normocephalic, atraumatic and Normal external nose present HEAD & SCALP: normocephalic and atraumatic FACE & SINUS: normal facial exam and face symmetric NOSE: Normal external nose present Eye: COMMON NORMALS: Equal, round and reactive pupils present and EOMs intact bilaterally PUPIL: Yes Equal, round and reactive pupils present Neck/C-Spine: GENERAL: Yes trachea midline Chest: CHEST: Yes Symmetrical chest wall rise Resp: COMMON NORMALS: normal respiratory effort, No retractions, No use of accessory muscles and clear to auscultation bilaterally AUSCULTATION: clear to auscultation bilaterally Cardio: COMMON NORMALS: regular rate and regular rhythm RATE: regular rate RHYTHM: regular rhythm GI: COMMON NORMALS: Normal to inspection, nondistended, normoactive bowel sounds present Extremity: COMMON NORMALS: no pedal edema Neuro: DAILY COMA SCALE: document GCS findings [place] coma scale eye opening: Spontaneous [place] coma scale verbal response: Orientated Daily coma scale motor response: Obey commands Daily coma scale total score: 15 SENSORY EXAM: Yes extremities (intact) Psych: COMMON NORMALS: speech normal SPEECH: Yes normal speech Skin: COMMON NORMALS: no rashes or lesions noted GENERAL SKIN EXAM: no rashes or lesions noted Course Vital Signs: Vital signs: Vital Signs Temperature 98.3 F 02/16/23 19:33 Pulse Rate 87 02/17/23 01:00 Respiratory Rate 18 02/17/23 01:00 Blood Pressure 142/80 02/17/23 01:00 Pulse Oximetry 98 02/17/23 01:00 Oxygen Delivery Me thod Room Air 02/17/23 00:30 MDM - Chest Pain Medical Decision Making 52 year old female with chest discomfort. No definite history of coronary artery disease. She has been diagnosed with diastolic CHF she says. Pain relieved, but even small doses of pain medication have caused her to hallucinate. Vital signs are stable. CBC and CMP are normal period chest X-ray is negative. Her delta troponin is 2. With relief of her pain, no acute changes on the EKG, an insignificant delta troponin, will allow home. She needs a PCP. We will ask our case finishing machine adjuster to help in this matter. She may need further outpatient testing as well. She evidently has had extensive outpatient testing a couple of years ago in [place]. To return for any worsening symptoms. Lab Data 02/16/23 20:24 02/16/23 20:24 Radiology Impressions Chest X-Ray 02/16/23 19:33 IMPRESSION: No acute findings. Laboratory Results WBC 9.1 10^3/uL (4.0-10.0) 02/16/23 20:24 RBC 5.42 10^6/uL (4.1-5.3) H 07/16/23 20: Hgb 14.7 g/dL (11.5-15.3) 02/16/23 20: Hct 46.8 % (37.0-47.0) 02/16/23 20: MCV 86.3 fl (81-99) 02/16/23 20: MCH 27.1 pg (28.0-34.0) L 02/16/23: MCHC 31.4 g/dL (30.0-36.0) 02/16/23: RDW 14.2 % (12.1-15.1) 02/16/23: Plt Count 371 10^3/cmm (130-400) 02/16/23: MPV 8.7 fL (7.4-10.4) 02/16/23 20: Neut % (Auto) 54.2 % 02/16/23: Lymph % (Auto) 32.9 % 02/16/23: [place] % (Auto) 9.0 % 02/16/23: Eos % (Auto) 2.8 % 02/16/23: Baso % (Auto) 0.8 % 02/16/23: Neut # (Auto) 4.95 10^3/uL (1.8-7.7) 02/16/23: Lymph # (Auto) 3.0 10^3/uL (0.8-4.8) 02/16/23: [place] # (Auto) 0.8 10^3/uL (0.2-0.9) 02/16/23: Eos # (Auto) 0.3 10^3/uL (0.0-0.8) 02/16/23: Baso # (Auto) 0.1 10^3/uL (0.0-0.1) 02/16/23: Nucleated RBC % (auto) 0 % 02/16/23: Nucleated RBCs # 0.0 /100WBC 02/16/23 20: Sodium 135 mmol/L (136-145) L 02/16/23: Potassium 3.9 mmol/L (3.5-5.1) 07/16/23 20:24 Chloride 101 mmol/L (98-107) 02/16/23 20:24 Carbon Dioxide 22 mmol/L (22-29) 02/16/23 20:24 Anion Gap 15.9 (5-19) 02/16/23 20:24 BUN 16 mg/dL (6-20) 02/16/23 20:24 Creatinine 0.9 mg/dL (0.5-0.9) 02/16/23 20:24 GFR Calculation 65.2 mL/min (90-130) L 02/16/23 20:24 Glucose 81 mg/dL (65-115) 02/16/23 20:24 Calculated Osmolality 280 mOsm/kg (285-295) L 02/16/23 20:24 Calcium 9.2 mg/dL (8.5-10.5) 02/16/23 20:24 Total Bilirubin 0.4 mg/dL (0.15-1.2) 02/16/23 20:24 AST 19 U/L (0-32) 02/16/23 20:24 ALT 17 U/L (0-33) 02/16/23 20:24 Alkaline Phosphatase 69 U/L (35-105) 02/16/23 20:24 Troponin T Baseline 7 ng/L (0-10) 02/16/23 20:24 Troponin T 120 Minute 9.09 ng/L (0-10) 02/16/23 22:37 Delta Troponin T 2.09 ABS# (0-10) 02/16/23 22:37 NT-Pro-B Natriuret Pep 151 pg/mL (0-125) H 02/16/23 20:24 Total Protein 7.5 g/dL (6.6-8.7) 02/16/23 20:24 Albumin 4.0 g/dL (3.5-5.2) 02/16/23 20:24 Globulin 3.5 g/dL (1.3-4.6) 02/16/23 20:24 Discharge Plan Discharge Patient Disposition: Home Clinical Impression: Chest pain Condition: Stable Prescriptions: New ketorolac 10 mg tablet 10 mg PO TID PRN (Reason: pain) Qty: 10 0RF No Action ipratropium-albuterol 0.5 mg-3 mg(2.5 mg base)/3 mL solution for nebulization 3 ml inhalation Q6H Qty: 180 0RF fluticasone propion-salmeterol 100-50 mcg/dose blister with device 1 inh inhalation BID Qty: 60 0RF albuterol sulfate 90 mcg/actuation Hfa Aerosol Inhaler 2 puff INHALATION QID PRN (Reason: Shortness Of Breath) Qty: 16 0RF Discharge Orders: Discharge ED (Routine); Ordered 02/17/23 Ordered By: Chris De León Patient Instructions: Chest Pain (ED) Activity Restrictions/Additional Instructions: Medication as directed. Return for worsening pain despite treatment, worsening shortness of breath, fever, other concerning symptoms. Case management has been asked to make you a follow-up appointment with a Dr. Monitor your blood pressure twice a day and keep track of those numbers. Coding Level of Care Code ED Polytechnic Registrar for Loyda Ochoa
[2023-02-16 20:52] LABS: Troponin(5th) Baseline 7 ng/L (0-10)
[2023-02-16 21:01] LABS: Alanine Aminotransferase 17 U/L (0-33); Alkaline Phosphatase 69 U/L (35-105); Anion Gap 15.9 (5-19); Aspartate Amino Transferase 19 U/L (0-32); Blood Urea Nitrogen 16 mg/dL (6-20); Calcium 9.2 mg/dL (8.5-10.5); Carbon Dioxide 22 mmol/L (22-29); Chloride 101 mmol/L (98-107); Creatinine Clr Calc Pharmacy 88.2362; Globulin 3.5 g/dL (1.3-4.6); Glomerular Filtration Rate 65.2 mL/min (90-130); Glucose 81 mg/dL (65-115); NT Pro B Type Natriuretic Pept 151 pg/mL (0-125); Osmolality Calculated 280 mOsm/kg (285-295); Potassium 3.9 mmol/L (3.5-5.1); Sodium 135 mmol/L (136-145); Total Bilirubin 0.4 mg/dL (0.15-1.2); Total Protein 7.5 g/dL (6.6-8.7)
--- NOTE | 2023-02-16 21:55 | ECG_ITS ---
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 Measurements Intervals [place] Rate: 82 P: 12 [place]: 167 QRS: -10 QRSD: 94 T: 15 QT: 380 QTc: 445 Interpretive Statements SINUS RHYTHM POSSIBLE ANTERIOR MYOCARDIAL INFARCTION , PROBABLY OLD [30 ms Q WAVE IN V3/V4, OR R < 0.2 mV IN V4] Compared to ECG 02/16/2023 19:30:54 Ventricular premature complex(es) no longer present Myocardial infarct finding still present Electronically Signed On 02-17-2023 21:43:16 CDT by Thuy Guevara M.D. [id number]
[2023-02-16 23:19] LABS: Troponin 5 2HR 9.09 ng/L (0-10)
[2023-02-16 23:27] LABS: Troponin 5 2HR Delta 2.09 ABS# (0-10)
[2023-02-16] MEDS: fentaNYL 50 mcg/mL INJ 2mL 25 MCG IVP (23:28)
[2023-02-16] MEDS: diphenhydrAMINE 50 mg/mL SDV 1mL 12.5 MG IVP (23:43)
--- NOTE | 2023-02-16 23:52 | PC.NURSE ---
MD notified of of reaction to Fentanyl and that full dose was not administered due to reaction. Verbal orders received for 12.5 mg of Benadryl. Administered half of the Benadryl and pt went to sleep. Pt alert to touch and talks to this nurse. MD notified, MD said to hold the rest of the benadryl.
[2023-02-17] VITALS: BP 148/94; PULSE 76; RESP 25; O2SAT 93
[2023-02-17 00:30] VITALS: BP 150/88; PULSE 75; RESP 28; O2SAT 93
[2023-02-17 01:00] VITALS: BP 142/80; PULSE 87; RESP 18; O2SAT 98
--- NOTE | 2023-02-26 13:28 | DCPLANNER ---
grant manager called patient due to no primary care physician - no answer at this time.
== END 2023-02-17 01:02 | disposition home or self-care (01) ==
PROVIDERS: Emergency Provider Emergency Medicine
DX: R07.9 Chest pain, unspecified (principal); I25.10 Atherosclerotic heart disease of native coronary artery without angina pectoris; I50.30 Unspecified diastolic (congestive) heart failure
CPT/HCPCS: 36415; 71045; 80053; 83880; 84484; 85025; 93005; 96374; 96375; 99285; J1200; J2270; J2405; J3010

== ENCOUNTER 2023-03-22 21:24 | Emergency (ER) | payer BC, SELFPAY ==
[2023-03-22 21:33] VITALS: BP 164/124; PULSE 88; RESP 16; TEMP 36.8; O2SAT 99; BMI 36.3
[2023-03-22 22:11] VITALS: BP 165/121; PULSE 87; RESP 99; O2SAT 98
[2023-03-22] MEDS: dexamethasone 10 mg/mL INJ IM (22:35)
[2023-03-22 22:36] VITALS: RESP 18; O2SAT 98
[2023-03-22] MEDS: oxyCODONE 5 mg IR Tab/Cap PO (22:36)
[2023-03-22] MEDS: famotidine 20 mg Tablet PO (22:37)
--- NOTE | 2023-03-22 22:57 | ED_ITS ---
HPI - Animal Bite General: Chief Complaint: Animal Bite Stated Complaint: Stung by Yellow Jackets Time Seen by Provider: 03/22/23 21:58 History of Present Illness: 52-year-old female who was stung on bilateral thighs by yellow jackets 4 days ago. She complains of continued pain, itching, and swelling. She has used Benadryl at home, as well as tramadol and ibuprofen for pain. She complains of mild throat irritation. No facial swelling. No significant shortness of breath. No vomiting. Associated symptoms: Reports chills; Deny fever(s) Review of Systems Const: Reports: chills; Denies: fever(s) Eyes: Denies: change in vision ENMT: Reports: throat pain; Denies: hoarseness Card: Denies: chest pain or palpitations Resp: Denies: dyspnea GI: Denies: abdominal pain, nausea or vomiting Skin/Breast: Reports: rash, pruritus, erythema and skin tenderness PFSH ED PFSH: Medical History Coronary artery disease Diastolic congestive heart failure Kidney stone No pertinent family history Surgical History H/O abdominoplasty H/O splenectomy Family History Denies family history of CAD (coronary artery disease) Social History Smoking and tobacco status: never smoked Female Reproductive History: Date of last menstrual period: 03/13/23 Physical Exam Const: COMMON NORMALS: no acute distress GENERAL APPEARANCE: cooperative; not ill appearing and not frail appearing HENMT: COMMON NORMALS: normocephalic, atraumatic and Normal external nose present HEAD & SCALP: normocephalic and atraumatic FACE & SINUS: normal facial exam and face symmetric NOSE: Normal external nose present Eye: COMMON NORMALS: Equal, round and reactive pupils present and EOMs intact bilaterally PUPIL: Yes Equal, round and reactive pupils present Neck/C-Spine: GENERAL: Yes trachea midline Chest: CHEST: Yes Symmetrical chest wall rise Resp: COMMON NORMALS: normal respiratory effort, No retractions, No use of accessory muscles and clear to auscultation bilaterally AUSCULTATION: clear to auscultation bilaterally Cardio: COMMON NORMALS: regular rate and regular rhythm RATE: regular rate RHYTHM: regular rhythm GI: COMMON NORMALS: Normal to inspection, nondistended, normoactive bowel sounds present Extremity: COMMON NORMALS: no pedal edema Neuro: RODRIGUE COMA SCALE: document GCS findings [place] coma scale eye opening: Spontaneous [place] coma scale verbal response: Orientated [place] coma scale motor response: Obey commands [place] coma scale total score: 15 SENSORY EXAM: Yes extremities (intact) Psych: COMMON NORMALS: speech normal SPEECH: Yes normal speech Skin: NARRATIVE SKIN EXAM: Stings apparent with significant red, tender, swollen and even ecchymotic areas to the anterior bilateral thighs. Course Vital Signs: Vital signs: Vital Signs Temperature 98.2 F 03/22/23 21:33 Pulse Rate 87 03/22/23 22:11 Respiratory Rate 18 03/22/23 22:36 Blood Pressure 165/121 03/22/23 22:11 Pulse Oximetry 98 03/22/23 22:36 Oxygen Delivery Me thod Room Air 03/22/23 22:11 MDM - Animal Bite Medical Decision Making Patient asked for an injection of steroid. This is given. 10 mg of IM Decadron. We will place her on a tapering dose of Medrol. She will continue Benadryl and Claritin. She will add Pepcid as well. She will be placed on a small dose of oxycodone for pain, as she is having significant trouble sleeping despite use of tramadol. She notes that she is quite sensitive to narcotic pain medication which is apparent after giving her 5 mg of oxy here in the ER. She will only take half of these pills at a time. Discharge Plan Discharge Patient Disposition: Home Clinical Impression: Allergic reaction to insect sting Condition: Stable Prescriptions: New Medrol (Ajay) 4 mg tablets,dose pack See Rx Instructions .ROUTE .COMPLEX Qty: 21 0RF Rx Instructions: orally per package directions oxycodone 5 mg capsule 5 mg PO DAILY Qty: 7 0RF No Action ipratropium-albuterol 0.5 mg-3 mg(2.5 mg base)/3 mL solution for nebulization 3 ml inhalation Q6H Qty: 180 0RF fluticasone propion-salmeterol 100-50 mcg/dose blister with device 1 inh inhalation BID Qty: 60 0RF albuterol sulfate 90 mcg/actuation Hfa Aerosol Inhaler 2 puff INHALATION QID PRN (Reason: Shortness Of Breath) Qty: 16 0RF ketorolac 10 mg tablet 10 mg PO TID PRN (Reason: pain) Qty: 10 0RF Discharge Orders: Discharge ED (Routine); Ordered 03/22/23 Ordered By: Chris De León Patient Instructions: Insect Bite or Sting (ED) Activity Restrictions/Additional Instructions: You may take 25 to 50 mg of Benadryl every 6 hours as needed. You may combine this with Claritin or Zyrtec daily. Pepcid 20 mg twice daily is also advisable. Prescription medications as directed. Return for worsening shortness of breath, tightening of the throat, swelling of the face, etc. Coding Level of Care Code ED Complaint Investigator for Loyda Ochoa
[2023-03-22 23:07] VITALS: BP 168/122; PULSE 86; RESP 18; O2SAT 97
== END 2023-03-22 23:09 | disposition home or self-care (01) ==
PROVIDERS: Emergency Provider Emergency Medicine
DX: T63.461A Toxic effect of venom of wasps, accidental (unintentional), initial encounter (principal); I25.10 Atherosclerotic heart disease of native coronary artery without angina pectoris; I50.30 Unspecified diastolic (congestive) heart failure
CPT/HCPCS: 96372; 99284; J1100

== ENCOUNTER 2023-06-30 13:47 | Emergency (ER) | payer BC, SELFPAY ==
[2023-06-30] VITALS (8 sets, daily range): BP systolic 154–175; BP diastolic 104–117; PULSE 82–102; RESP 17–24; TEMP 36.7; O2SAT 95–100; BMI 35.7
--- NOTE | 2023-06-30 14:02 | ECG_ITS ---
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 Measurements Intervals [place] Rate: 98 P: 26 [place]: 167 QRS: -5 QRSD: 94 T: 30 QT: 349 QTc: 447 Interpretive Statements SINUS RHYTHM Poor R wave progression across chest leads Borderline EKG Compared to ECG 02/16/2023 21:55:46 No significant changes Electronically Signed On 07-01-2023 17:01:38 PROCESS DEVELOPMENT MANAGER by Kayleen Foster M.D. [id number]
--- NOTE | 2023-06-30 14:06 | W.ED.CHESTPA ---
HPI - Chest Pain General: Chief Complaint: Chest Pain Stated Complaint: chest pain/ sudden ams Time Seen by Provider: 06/30/23 13:53 Source: patient History of Present Illness: 53-year-old female presents emergency room with complaint of chest pain that began while she was riding in a vehicle. She has had episodes of chest pain in the past usually with rest and resolved spontaneously she was seen earlier this year and February for chest discomfort at that time her cardiac enzymes were negative. She tells me she has a history of heart disease had 3 previous heart attacks but has not had any stents or bypass. She also states she has some diastolic heart failure. MD complaint: chest pain Exacerbating factors: nothing Associated symptoms: Deny abdominal pain, diaphoresis, dyspnea, fever(s), leg edema, nausea, palpitations, sense of impending doom, syncope or vomiting Review of Systems Const: Denies: fever(s), chills or diaphoresis Card: Denies: chest pain, palpitations or syncope Resp: Denies: dyspnea GI: Denies: abdominal pain, nausea or vomiting : Denies: dysuria, urinary frequency or urinary urgency Musc: Denies: neck pain or back pain Skin/Breast: Denies: rash PFSH ED PFSH: Medical History Coronary artery disease Diastolic congestive heart failure Kidney stone No pertinent family history Surgical History H/O abdominoplasty H/O splenectomy Family History Denies family history of CAD (coronary artery disease) Social History Smoking and tobacco/nicotine status: never used tobacco/nicotine Physical Exam Const: COMMON NORMALS: no acute distress GENERAL APPEARANCE: cooperative and comfortable ORIENTATION/CONSCIOUSNESS: Yes awake, Yes oriented to person, Yes oriented to place and Yes oriented to time HENMT: COMMON NORMALS: normocephalic, atraumatic and hearing grossly normal bilaterally HEAD & SCALP: normocephalic and atraumatic Resp: COMMON NORMALS: normal respiratory effort, No retractions, No use of accessory muscles and clear to auscultation bilaterally AUSCULTATION: clear to auscultation bilaterally Cardio: COMMON NORMALS: regular rate, regular rhythm and No murmurs present (Cardio) RATE: regular rate RHYTHM: regular rhythm GI: COMMON NORMALS: Soft to palpation and No hepatosplenomegaly present AUSCULTATION: Yes normoactive bowel sounds PALPATION: Yes Soft to palpation, No Tenderness to palpation present (GI), No Guarding due to palpation present (GI) and Yes No hepatosplenomegaly present Extremity: COMMON NORMALS: normal to inspection, capillary refill normal, no clubbing, cyanosis or edema, no calf tenderness and no pedal edema Neuro: SENSORIUM/ORIENTATION: Yes oriented to person, Yes oriented to place and Yes oriented to time Skin: COMMON NORMALS: no rashes or lesions noted GENERAL SKIN EXAM: no rashes or lesions noted Course Vital Signs: Vital signs: Vital Signs Temperature 98.1 F 06/30/23 13:52 Pulse Rate 82 06/30/23 15:40 Respiratory Rate 17 06/30/23 15:40 Blood Pressure 154/117 06/30/23 15:25 Pulse Oximetry 99 06/30/23 15:40 Oxygen Delivery Me thod Room Air 06/30/23 15:40 MDM - Chest Pain Medical Decision Making EKG shows sinus rhythm with a rate of 98 on the first EKG and 82 on the second. There is no acute EKG changes. No ST elevation or depression. Cardiac enzymes do not show significant delta. Patient has had previous work-up here for chest discomfort which was negative. She tells me that she has had 3 heart attacks in the past but has had angiograms that were all normal and she has not had any stents or bypass she is not taking any antiplatelet therapy at this time. I think it would be helpful to have some of those records to review and verify her coronary artery status. Suspect some of this discomfort may be noncardiac. She has no signs of pneumonia pneumothorax or widening mediastinum. Recommend that she try trial an [id number] proton pump inhibitor such as Nexium or omeprazole. Her blood pressure was elevated here today recommend that she start on Toprol-XL 25 mg daily this low benefit both for her diastolic heart failure cardioprotective effect if she does have underlying coronary disease as well as controlling her blood pressure. Also recommend she take a baby aspirin daily. Case management to set her up to establish with a primary care physician. We will also set up for an outpatient Lexiscan sestamibi stress test. Medical Records I reviewed the patient's medical records. Lab Data I reviewed the patient's lab results. 06/30/23 13:30 06/30/23 13:30 Radiology Impressions Chest X-Ray 06/30/23 14:39 IMPRESSION: No acute findings. Laboratory Results WBC 10.56 10^3/uL (3.29-11.43) 06/30/23 13:30 RBC 5.65 10^6/uL (3.85-5.65) 06/30/23 13:30 Hgb 15.70 g/dL (11.27-16.99) 06/30/23 13:30 Hct 49.4 % (36-47) H 06/30/23 13:30 MCV 87.4 fl (85-98) 06/30/23 13:30 MCH 27.8 pg (27-33) 06/30/23 13:30 MCHC 31.8 g/dL (30-55) 06/30/23 13:30 RDW 15.1 % (12.1-15.1) 06/30/23 13:30 Plt Count 432 10^3/cmm (157-399) H 06/30/23 13:30 MPV 9.4 fL (7.4-10.4) 06/30/23 13:30 Neut % (Auto) 60.9 % 06/30/23 13:30 Lymph % (Auto) 29.2 % 06/30/23 13:30 [place] % (Auto) 7.1 % 06/30/23 13:30 Eos % (Auto) 1.3 % 06/30/23 13:30 Baso % (Auto) 0.9 % 06/30/23 13:30 Neut # (Auto) 6.44 10^3/uL (1.8-7.7) 06/30/23 13:30 Lymph # (Auto) 3.1 10^3/uL (0.8-4.8) 06/30/23 13:30 [place] # (Auto) 0.8 10^3/uL (0.2-0.9) 06/30/23 13:30 Eos # (Auto) 0.1 10^3/uL (0.0-0.8) 06/30/23 13:30 Baso # (Auto) 0.1 10^3/uL (0.0-0.1) 06/30/23 13:30 Nucleated RBC % (auto) 0 % 06/30/23 13:30 Nucleated RBCs # 0.0 /100WBC 06/30/23 13:30 Sodium 136 mmol/L (136-145) 06/30/23 13:30 Potassium 4.0 mmol/L (3.5-5.1) 06/30/23 13:30 Chloride 100 mmol/L (98-107) 06/30/23 13:30 Carbon Dioxide 24 mmol/L (22-29) 06/30/23 13:30 Anion Gap 16.0 (5-19) 06/30/23 13:30 BUN 18 mg/dL (6-20) 06/30/23 13:30 Creatinine 1.0 mg/dL (0.5-0.9) H 06/30/23 13:30 GFR Calculation 57.6 mL/min (90-130) L 06/30/23 13:30 Glucose 95 mg/dL (65-115) 06/30/23 13:30 Calculated Osmolality 284 mOsm/kg (285-295) L 06/30/23 13:30 Calcium 9.8 mg/dL (8.5-10.5) 06/30/23 13:30 Total Bilirubin 0.4 mg/dL (0.15-1.2) 06/30/23 13:30 AST 27 U/L (0-32) 06/30/23 13:30 ALT 26 U/L (0-33) 06/30/23 13:30 Alkaline Phosphatase 93 U/L (35-105) 06/30/23 13:30 Troponin T Baseline 11 ng/L (0-10) H 06/30/23 13:30 Troponin T 120 Minute 10.70 ng/L (0-10) H 06/30/23 15:32 Delta Troponin T -0.30 ABS# (0-10) L 06/30/23 15:32 Total Protein 7.9 g/dL (6.6-8.7) 06/30/23 13:30 Albumin 4.8 g/dL (3.5-5.2) 06/30/23 13:30 Globulin 3.1 g/dL (1.3-4.6) 06/30/23 13:30 Urine Color Yellow (Yellow) 06/30/23 15:13 Urine Appearance Clear (CLEAR) 06/30/23 15:13 Urine pH 5 (5-7) 06/30/23 15:13 Ur Specific [place] 1.020 (1.005-1.030) 06/30/23 15:13 Urine Protein Neg (Negative) 06/30/23 15:13 Urine Glucose (UA) Norm (Normal) 06/30/23 15:13 Urine Ketones Negative (Negative) 06/30/23 15:13 Urine Blood Trace (Negative) H 06/30/23 15:13 Urine Nitrate Negative (Negative) 06/30/23 15:13 Urine Bilirubin Neg (Negative) 06/30/23 15:13 Urine Urobilinogen Norm mg/dL (Negative) 06/30/23 15:13 Ur Leukocyte Esterase Negative (Negative) 06/30/23 15:13 Urine RBC Rare /hpf (0-2) 06/30/23 15:13 Urine WBC 0-4 /hpf (0-5) H 06/30/23 15:13 Ur Squamous Epith Cells 5-10 /hpf (0-5) H 06/30/23 15:13 Amorphous Sediment Not Reportable 06/30/23 15:13 Urine Bacteria 1+ /hpf (NONE) H 06/30/23 15:13 All radiology interpretation(s) finalized by discharge Discharge Plan Discharge Patient Disposition: Home Clinical Impression: Atypical chest pain, Diastolic congestive heart failure, Coronary artery disease, HTN (hypertension) Condition: Stable Prescriptions: New aspirin 81 mg tablet,delayed release (DR/EC) 81 mg PO DAILY Qty: 30 0RF Toprol XL 25 mg tablet extended release 24 hr 25 mg PO DAILY Qty: 30 0RF Discharge Orders: Discharge ED (Routine); Ordered 06/30/23 Ordered By: Curt Pandey Discharge Diet: Usual diet Patient Instructions: Opioid Safety, Pain Management Activity Restrictions/Additional Instructions: Thank you for choosing [facility] for your healthcare needs today. Please realize this is an emergency room and that we are providing you with a medical screening exam and this may not be complete and all inclusive of all the testing and or work up that you may need to determine your ailment or severity of your illness. It is very important that you follow up as instructed or that you return to the Emergency Department should you have concerns or if your condition changes or worsens in any way. You are seen in the emergency room for chest pain. Your cardiac enzymes and EKG did not show any acute changes. Based on your reported history would recommend taking a baby aspirin daily and starting on Toprol-XL 25 mg daily. We will set you up for an outpatient Lexiscan sestamibi stress test to further evaluate. Case management will set this up and contact you with the date and time. 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
[2023-06-30 14:18] LABS: Basophils # 0.1 10^3/uL (0.0-0.1); Basophils % 0.9 %; Eosinophils # 0.1 10^3/uL (0.0-0.8); Eosinophils % 1.3 %; Hematocrit 49.4 % (36-47); Lymphocytes # 3.1 10^3/uL (0.8-4.8); Lymphocytes % 29.2 %; Mean Corpuscular HGB Conc 31.8 g/dL (30-55); Mean Corpuscular Hemoglobin 27.8 pg (27-33); Mean Corpuscular Volume 87.4 fl (85-98); Mean Platelet Volume 9.4 fL (7.4-10.4); Monocytes # 0.8 10^3/uL (0.2-0.9); Monocytes % 7.1 %; Neutrophils # 6.44 10^3/uL (1.8-7.7); Neutrophils % 60.9 %; Nucleated Red Blood Cells % 0 %; Platelet Count 432 10^3/cmm (157-399); Red Blood Count 5.65 10^6/uL (3.85-5.65); Red Cell Distribution Width 15.1 % (12.1-15.1); White Blood Count 10.56 10^3/uL (3.29-11.43)
--- NOTE | 2023-06-30 14:22 | PC.NURSE ---
ASPIRIN HELD DUE TO GIVEN BY EMS. EMS REPORTS THEY GAVE 324MG ASPIRIN EN ROUTE.
--- NOTE | 2023-06-30 14:39 | XRR_ITS ---
PROCEDURE INFORMATION: Exam: XR Chest Exam date and time: 06/30/2023 2:43 PM Age: 53 years old Clinical indication: Pain; Angina pectoris; Patient HX: AMS; Additional info: Chest pain TECHNIQUE: Imaging protocol: Radiologic exam of the chest. Views: 1 view. COMPARISON: CR (CHEST, ) 02/16/2023 8:22 PM FINDINGS: Lungs: Pulmonary hypoinflation. No consolidation. Pleural spaces: Unremarkable. No pleural effusion. No pneumothorax. Heart/Mediastinum: Unremarkable. No cardiomegaly. Bones/joints: Unremarkable. XR/XR chest 1V portable [id number] IMPRESSION: No acute findings.
[2023-06-30 14:45] LABS: Troponin(5th) Baseline 11 ng/L (0-10)
[2023-06-30 14:46] LABS: Alanine Aminotransferase 26 U/L (0-33); Albumin Level 4.8 g/dL (3.5-5.2); Alkaline Phosphatase 93 U/L (35-105); Aspartate Amino Transferase 27 U/L (0-32); Blood Urea Nitrogen 18 mg/dL (6-20); Calcium 9.8 mg/dL (8.5-10.5); Carbon Dioxide 24 mmol/L (22-29); Chloride 100 mmol/L (98-107); Globulin 3.1 g/dL (1.3-4.6); Glomerular Filtration Rate 57.6 mL/min (90-130); Glucose 95 mg/dL (65-115); Osmolality Calculated 284 mOsm/kg (285-295); Sodium 136 mmol/L (136-145); Total Bilirubin 0.4 mg/dL (0.15-1.2); Total Protein 7.9 g/dL (6.6-8.7)
--- NOTE | 2023-06-30 15:53 | ECG_ITS ---
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 Measurements Intervals [place] Rate: 82 P: 21 VA: 160 QRS: 0 QRSD: 100 T: 29 QT: 393 QTc: 460 Interpretive Statements SINUS RHYTHM Poor R wave progression across anterior chest leads Compared to ECG 06/30/2023 14:02:43 No significant changes Electronically Signed On 07-01-2023 17:21:23 [employer] by Kayleen Foster M.D. [id number]
[2023-06-30 16:06] LABS: Add Urine Microscopic? YES; Bilirubin Urine Neg (Negative); Blood Urine Trace (Negative); Glucose Urine UA Norm (Normal); Ketones Urine Negative (Negative); Leukocyte Esterase Urine Negative (Negative); Nitrate Urine Negative (Negative); Protein Urine Neg (Negative); RBC Urine RARE /hpf (0-2); Urine Appearance Clear (CLEAR); Urine Color Yellow (Yellow); Urobilinogen Urine Norm (Negative); WBC Urine 0-4 /hpf (0-5); pH Urine 5 (5-7)
[2023-06-30 16:07] LABS: Add Urine Culture? No; Bacteria Urine 1+ /hpf
--- NOTE | 2023-06-30 17:09 | DCPLANNER ---
Referral was sent to [facility] for them to establish a pcp. sent at [id number] on 06/30
== END 2023-06-30 17:10 | disposition home or self-care (01) ==
PROVIDERS: Emergency Provider Family Medicine
DX: R07.89 Other chest pain (principal); I11.0 Hypertensive heart disease with heart failure; I50.30 Unspecified diastolic (congestive) heart failure; I25.10 Atherosclerotic heart disease of native coronary artery without angina pectoris
CPT/HCPCS: 36415; 71045; 80053; 81001; 84484; 85025; 93005; 99285

== ENCOUNTER 2023-12-10 20:41 | Emergency (ER) | payer BC, SELFPAY ==
--- NOTE | 2023-12-10 20:42 | ECG_ITS ---
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 Measurements Intervals [place] Rate: 93 P: 28 NV: 152 QRS: 52 QRSD: 85 T: 29 QT: 354 QTc: 441 Interpretive Statements SINUS RHYTHM POSSIBLE ANTERIOR MYOCARDIAL INFARCTION , PROBABLY OLD [30 ms Q WAVE IN V3/V4, OR R < 0.2 mV IN V4] Compared to ECG 06/30/2023 15:53:31 Myocardial infarct finding now present Poor R-wave progression no longer present Electronically Signed On 12-11-2023 17:16:45 CDT by Bryan Morley M.D. [id number]
--- NOTE | 2023-12-10 20:47 | XRR_ITS ---
PROCEDURE INFORMATION: Exam: XR Chest Exam date and time: 12/10/2023 9:38 PM Age: 53 years old Clinical indication: Chest wall pain; Additional info: Cp TECHNIQUE: Imaging protocol: Radiologic exam of the chest. Views: 1 view. COMPARISON: CR XR chest 1V portable [id number] 06/30/2023 2:43 PM FINDINGS: Lungs: Unremarkable. No consolidation. Pleural spaces: Unremarkable. No pleural effusion. No pneumothorax. Heart/Mediastinum: Unremarkable. No cardiomegaly. Bones/joints: No acute findings. XR/XR chest 1V portable [id number] IMPRESSION: No acute findings.
[2023-12-10 20:48] VITALS: BP 160/108; PULSE 103; RESP 18; TEMP 36.7; O2SAT 94
--- NOTE | 2023-12-10 21:03 | CTR_ITS ---
PROCEDURE INFORMATION: Exam: CT Head Without Contrast Exam date and time: 12/10/2023 9:09 PM Age: 53 years old Clinical indication: Dizziness TECHNIQUE: Imaging protocol: Computed tomography of the head without contrast. Radiation optimization: All CT scans at this facility use at least one of these dose optimization techniques: automated exposure control; mA and/or kV adjustment per patient size (includes targeted exams where dose is matched to clinical indication); or iterative reconstruction. COMPARISON: CT head wo con* [id number] 03/21/2021 6:28 PM RADIATION DOSE METRICS: Total DLP (mGy-cm): 1169 FINDINGS: Brain: Normal. No hemorrhage. Unremarkable white matter. No mass effect. Cerebral ventricles: No ventriculomegaly. Paranasal sinuses: Visualized sinuses are unremarkable. No fluid levels. Mastoid air cells: Visualized mastoid air cells are well aerated. Bones: Unremarkable. No acute fracture. Soft tissues: Unremarkable. CT/CT head wo con* [id number] IMPRESSION: No acute intracranial abnormality.
--- NOTE | 2023-12-10 21:05 | ED_ITS ---
Documented by User: Christel Charles MD 12/11/23 05:52 HPI - Chest Pain 2 General: Chief Complaint: Chest Pain Stated Complaint: Chest Pains Time Seen by Provider: 12/10/23 21:00 Source: patient Mode of arrival: ambulatory Limitations: no limitations History of Present Illness: 53-year-old female is here with multiple complaints she states over the last 2 weeks she is feel like she has been poisoned. States has been having chest pain along with severe bilateral leg and arm pains. States she is also had dizziness while standing she states more like she feels lightheaded now that the room spinning and feels like she may pass out states she has had multiple falls denies any diarrhea denies any cough or fever. Associated symptoms: Reports nausea; Deny abdominal pain, dyspnea, fever(s) or vomiting Review of Systems 2 Const: Reports: body aches, fatigue and malaise; Denies: fever(s), chills or change in appetite Eyes: Denies: blurry vision or eye discomfort ENMT: Denies: throat pain or dental pain Card: Reports: chest pain Resp: Denies: dyspnea GI: Reports: nausea; Denies: abdominal pain, vomiting or diarrhea : Denies: dysuria Musc: Reports: extremity pain; Denies: neck pain or back pain Skin/Breast: Denies: rash Neuro: Reports: frequent falls and dizziness; Denies: headache(s) PFSH ED 2 PFSH: Medical History No pertinent family history Kidney stone Coronary artery disease Diastolic congestive heart failure Surgical History H/O abdominoplasty H/O splenectomy Family History Denies family history of CAD (coronary artery disease) Social History Smoking and tobacco/nicotine status: never used tobacco/nicotine Female Reproductive History: Date of last menstrual period: 09/17/23 Physical Exam 2 Const: COMMON NORMALS: no acute distress, patient oriented x3 and healthy appearing HENMT: COMMON NORMALS: normocephalic and atraumatic HEAD & SCALP: n ormocephalic and atraumatic Eye: COMMON NORMALS: Equal, round and reactive pupils present and EOMs intact bilaterally PUPIL: Yes Equal, round and reactive pupils present Neck/C-Spine: COMMON NORMALS: full ROM and supple Chest: COMMONS NORMALS: normal inspection of the chest and normal palpation of entire chest wall Resp: COMMON NORMALS: normal respiratory effort, No retractions, No use of accessory muscles and clear to auscultation bilaterally AUSCULTATION: clear to auscultation bilaterally Cardio: COMMON NORMALS: regular rate, regular rhythm and No murmurs present (Cardio) RATE: regular rate RHYTHM: regular rhythm GI: COMMON NORMALS: Normal to inspection, nondistended, normoactive bowel sounds present, Soft to palpation, non-tender and no masses PALPATION: Yes Soft to palpation Extremity: COMMON NORMALS: normal to inspection and full ROM Neuro: COMMON NORMALS: patient oriented x3, moves all extremities and no focal motor deficits Psych: COMMON NORMALS: mental status grossly normal, Normal thought process present and cooperative THOUGHT PROCESS: Normal thought process present Skin: COMMON NORMALS: no rashes or lesions noted and no wounds GENERAL SKIN EXAM: no rashes or lesions noted Course 2 Vital Signs: Vital signs: Vital Signs Temperature 98.1 F 12/11/23 00:11 Pulse Rate 80 12/11/23 00:11 Respiratory Rate 16 12/11/23 00:11 Blood Pressure 152/114 12/11/23 00:11 Pulse Oximetry 96 12/11/23 00:11 Oxygen Delivery Me thod Room Air 12/10/23 20:48 MDM - Chest Pain Lab Data 12/10/23 21:07 12/10/23 21:07 Radiology Impressions Chest X-Ray 12/10/23 20:47 IMPRESSION: No acute findings. Head CT 12/10/23 21:03 IMPRESSION: No acute intracranial abnormality. Laboratory Results WBC 12.32 10^3/uL (3.29-11.43) H 12/10/23 21:07 RBC 5.59 10^6/uL (3.85-5.65) 12/10/23 21:07 Hgb 15.50 g/dL (11.27-16.99) 12/10/23 21:07 Hct 48.2 % (36-47) H 12/10/23 21:07 MCV 86.2 fl (85-98) 12/10/23 21:07 MCH 27.7 pg (27-33) 12/10/23 21:07 MCHC 32.2 g/dL (30-55) 12/10/23 21:07 RDW 15.3 % (12.1-15.1) H 12/10/23 21:07 Plt Count 353 10^3/cmm (157-399) 12/10/23 21:07 MPV 9.1 fL (7.4-10.4) 12/10/23 21:07 Neut % (Auto) 59.4 % 12/10/23 21:07 Lymph % (Auto) 28.7 % 12/10/23 21:07 [place] % (Auto) 8.8 % 12/10/23 21:07 Eos % (Auto) 2.0 % 12/10/23 21:07 Baso % (Auto) 0.6 % 12/10/23 21:07 Neut # (Auto) 7.30 10^3/uL (1.8-7.7) 12/10/23 21:07 Lymph # (Auto) 3.5 10^3/uL (0.8-4.8) 12/10/23 21:07 [place] # (Auto) 1.1 10^3/uL (0.2-0.9) H 12/10/23 21:07 Eos # (Auto) 0.3 10^3/uL (0.0-0.8) 12/10/23 21:07 Baso # (Auto) 0.1 10^3/uL (0.0-0.1) 12/10/23 21:07 Nucleated RBC % (auto) 0 % 12/10/23 21:07 Nucleated RBCs # 0.0 /100WBC 12/10/23 21:07 PT 12.20 SECONDS (12.1-14.9) 12/10/23 21:07 INR 0.88 (0.8-1.2) 12/10/23 21:07 D-Dimer 0.57 ug/mLFEU (0-0.59) 12/10/23 21:07 Sodium 141 mmol/L (136-145) 12/10/23 21:07 Potassium 4.8 mmol/L (3.5-5.1) 12/10/23 21:07 Chloride 105 mmol/L (98-107) 12/10/23 21:07 Carbon Dioxide 25 mmol/L (22-29) 12/10/23 21:07 Anion Gap 15.8 (5-19) 12/10/23 21:07 BUN 20 mg/dL (6-20) 12/10/23 21:07 Creatinine 0.8 mg/dL (0.5-0.9) 12/10/23 21:07 GFR Calculation 74.5 mL/min (90-130) L 12/10/23 21:07 Glucose 88 mg/dL (65-115) 12/10/23 21:07 Calculated Osmolality 294 mOsm/kg (285-295) 12/10/23 21:07 Calcium 9.5 mg/dL (8.5-10.5) 12/10/23 21:07 Total Bilirubin 0.4 mg/dL (0.15-1.2) 12/10/23 21:07 AST 27 U/L (0-32) 12/10/23 21:07 ALT 23 U/L (0-33) 12/10/23 21:07 Alkaline Phosphatase 74 U/L (35-105) 12/10/23 21:07 Troponin T Baseline 11 ng/L (0-10) H 12/10/23 21:07 Troponin T 120 Minute 11.06 ng/L (0-10) H 12/10/23 23:17 Delta Troponin T 0.06 ABS# (0-10) 12/10/23 23:17 Total Protein 7.9 g/dL (6.6-8.7) 12/10/23 21:07 Albumin 4.6 g/dL (3.5-5.2) 12/10/23 21:07 Globulin 3.3 g/dL (1.3-4.6) 12/10/23 21:07 Lipase 61 U/L (13-60) H 12/10/23 21:07 TSH 7.02 uIU/mL (0.27-4.20) H 12/10/23 21:07 Urine Color Light yellow (Yellow) 12/10/23 21:21 Urine Appearance Clear (CLEAR) 12/10/23 21:21 Urine pH 5 (5-7) 12/10/23 21:21 Ur Specific [place] 1.020 (1.005-1.030) 12/10/23 21:21 Urine Protein Neg (Negative) 12/10/23 21:21 Urine Glucose (UA) Norm (Normal) 12/10/23 21:21 Urine Ketones Negative (Negative) 12/10/23 21:21 Urine Blood Neg (Negative) 12/10/23 21:21 Urine Nitrate Negative (Negative) 12/10/23 21:21 Urine Bilirubin Neg (Negative) 12/10/23 21:21 Urine Urobilinogen Neg mg/dL (Negative) 12/10/23 21:21 Ur Leukocyte Esterase Negative (Negative) 12/10/23 21:21 Discharge Plan Discharge Patient Disposition: Home Clinical Impression: Atypical chest pain, Bilateral leg pain Hypothyroidism Qualifiers: Hypothyroidism type: unspecified Qualified Code(s): E03.9 - Hypothyroidism, unspecified Condition: Stable Prescriptions: No Action aspirin 81 mg tablet,delayed release (DR/EC) 81 mg PO DAILY Qty: 30 0RF Toprol XL 25 mg tablet extended release 24 hr 25 mg PO DAILY Qty: 30 0RF Discharge Orders: Discharge ED (Routine); Ordered 12/10/23 Ordered By: Michael Umanzor Patient Instructions: Chest Pain (ED), Hypothyroidism (ED), Leg Pain (ED) Activity Restrictions/Additional Instructions: Your evaluation in ER that included blood work and imaging was essentially unremarkable except for a mildly elevated TSH, this means you may have hypothyroidism. This warrants further investigation and possible treatment. Please follow-up with your family practice physician within the next 7 days for this evaluation and treatment. Coding Level of Care Code ED Quarrying Manager for [facility]g [employer] Documented by User: Michael Umanzor DO 12/11/23 01:46 HPI - Chest Pain 2 General: Chief Complaint: Chest Pain Stated Complaint: Chest Pains Time Seen by Provider: 12/10/23 21:00 PFSH ED 2 PFSH: Medical History No pertinent family history Kidney stone Coronary artery disease Diastolic congestive heart failure Surgical History H/O abdominoplasty H/O splenectomy Family History Denies family history of CAD (coronary artery disease) Social History Smoking and tobacco/nicotine status: never used tobacco/nicotine Course 2 Vital Signs: Vital signs: Vital Signs Temperature 98.1 F 12/11/23 00:11 Pulse Rate 80 12/11/23 00:11 Respiratory Rate 16 12/11/23 00:11 Blood Pressure 152/114 12/11/23 00:11 Pulse Oximetry 96 12/11/23 00:11 Oxygen Delivery Me thod Room Air 12/10/23 20:48 MDM - Chest Pain Medical Decision Making Care transferred over at shift change, lab work was reviewed as well as chest x- ray and head CT, all of which were essentially benign except for mildly elevated TSH. These labs and imaging were discussed with the patient patient be referred back to her primary care for further evaluation testing. Lab Data 12/10/23 21:07 12/10/23 21:07 Radiology Impressions Chest X-Ray 12/10/23 20:47 IMPRESSION: No acute findings. Head CT 12/10/23 21:03 IMPRESSION: No acute intracranial abnormality. Laboratory Results WBC 12.32 10^3/uL (3.29-11.43) H 12/10/23 21:07 RBC 5.59 10^6/uL (3.85-5.65) 12/10/23 21:07 Hgb 15.50 g/dL (11.27-16.99) 12/10/23 21:07 Hct 48.2 % (36-47) H 12/10/23 21:07 MCV 86.2 fl (85-98) 12/10/23 21:07 MCH 27.7 pg (27-33) 12/10/23 21:07 MCHC 32.2 g/dL (30-55) 12/10/23 21:07 RDW 15.3 % (12.1-15.1) H 12/10/23 21:07 Plt Count 353 10^3/cmm (157-399) 12/10/23 21:07 MPV 9.1 fL (7.4-10.4) 12/10/23 21:07 Neut % (Auto) 59.4 % 12/10/23 21:07 Lymph % (Auto) 28.7 % 12/10/23 21:07 [place] % (Auto) 8.8 % 12/10/23 21:07 Eos % (Auto) 2.0 % 12/10/23 21:07 Baso % (Auto) 0.6 % 12/10/23 21:07 Neut # (Auto) 7.30 10^3/uL (1.8-7.7) 12/10/23 21:07 Lymph # (Auto) 3.5 10^3/uL (0.8-4.8) 12/10/23 21:07 [place] # (Auto) 1.1 10^3/uL (0.2-0.9) H 12/10/23 21:07 Eos # (Auto) 0.3 10^3/uL (0.0-0.8) 12/10/23 21:07 Baso # (Auto) 0.1 10^3/uL (0.0-0.1) 12/10/23 21:07 Nucleated RBC % (auto) 0 % 12/10/23 21:07 Nucleated RBCs # 0.0 /100WBC 12/10/23 21:07 PT 12.20 SECONDS (12.1-14.9) 12/10/23 21:07 INR 0.88 (0.8-1.2) 12/10/23 21:07 D-Dimer 0.57 ug/mLFEU (0-0.59) 12/10/23 21:07 Sodium 141 mmol/L (136-145) 12/10/23 21:07 Potassium 4.8 mmol/L (3.5-5.1) 12/10/23 21:07 Chloride 105 mmol/L (98-107) 12/10/23 21:07 Carbon Dioxide 25 mmol/L (22-29) 12/10/23 21:07 Anion Gap 15.8 (5-19) 12/10/23 21:07 BUN 20 mg/dL (6-20) 12/10/23 21:07 Creatinine 0.8 mg/dL (0.5-0.9) 12/10/23 21:07 GFR Calculation 74.5 mL/min (90-130) L 12/10/23 21:07 Glucose 88 mg/dL (65-115) 12/10/23 21:07 Calculated Osmolality 294 mOsm/kg (285-295) 12/10/23 21:07 Calcium 9.5 mg/dL (8.5-10.5) 12/10/23 21:07 Total Bilirubin 0.4 mg/dL (0.15-1.2) 12/10/23 21:07 AST 27 U/L (0-32) 12/10/23 21:07 ALT 23 U/L (0-33) 12/10/23 21:07 Alkaline Phosphatase 74 U/L (35-105) 12/10/23 21:07 Troponin T Baseline 11 ng/L (0-10) H 12/10/23 21:07 Troponin T 120 Minute 11.06 ng/L (0-10) H 12/10/23 23:17 Delta Troponin T 0.06 ABS# (0-10) 12/10/23 23:17 Total Protein 7.9 g/dL (6.6-8.7) 12/10/23 21:07 Albumin 4.6 g/dL (3.5-5.2) 12/10/23 21:07 Globulin 3.3 g/dL (1.3-4.6) 12/10/23 21:07 Lipase 61 U/L (13-60) H 12/10/23 21:07 TSH 7.02 uIU/mL (0.27-4.20) H 12/10/23 21:07 Urine Color Light yellow (Yellow) 12/10/23 21:21 Urine Appearance Clear (CLEAR) 12/10/23 21:21 Urine pH 5 (5-7) 12/10/23 21:21 Ur Specific [place] 1.020 (1.005-1.030) 12/10/23 21:21 Urine Protein Neg (Negative) 12/10/23 21:21 Urine Glucose (UA) Norm (Normal) 12/10/23 21:21 Urine Ketones Negative (Negative) 12/10/23 21:21 Urine Blood Neg (Negative) 12/10/23 21:21 Urine Nitrate Negative (Negative) 12/10/23 21:21 Urine Bilirubin Neg (Negative) 12/10/23 21:21 Urine Urobilinogen Neg mg/dL (Negative) 12/10/23 21:21 Ur Leukocyte Esterase Negative (Negative) 12/10/23 21:21 All radiology interpretation(s) finalized by discharge Discharge Plan Discharge Patient Disposition: Home Clinical Impression: Atypical chest pain, Bilateral leg pain Hypothyroidism Qualifiers: Hypothyroidism type: unspecified Qualified Code(s): E03.9 - Hypothyroidism, unspecified Condition: Stable Prescriptions: No Action aspirin 81 mg tablet,delayed release (DR/EC) 81 mg PO DAILY Qty: 30 0RF Toprol XL 25 mg tablet extended release 24 hr 25 mg PO DAILY Qty: 30 0RF Discharge Orders: Discharge ED (Routine); Ordered 12/10/23 Ordered By: Michael Umanzor Patient Instructions: Chest Pain (ED), Hypothyroidism (ED), Leg Pain (ED) Activity Restrictions/Additional Instructions: Your evaluation in ER that included blood work and imaging was essentially unremarkable except for a mildly elevated TSH, this means you may have hypothyroidism. This warrants further investigation and possible treatment. Please follow-up with your family practice physician within the next 7 days for this evaluation and treatment. Coding Level of Care Code ED Quarrying Manager for Loyda Ochoa
[2023-12-10 21:15] LABS: Basophils # 0.1 10^3/uL (0.0-0.1); Basophils % 0.6 %; Eosinophils # 0.3 10^3/uL (0.0-0.8); Hematocrit 48.2 % (36-47); Lymphocytes # 3.5 10^3/uL (0.8-4.8); Lymphocytes % 28.7 %; Mean Corpuscular HGB Conc 32.2 g/dL (30-55); Mean Corpuscular Hemoglobin 27.7 pg (27-33); Mean Corpuscular Volume 86.2 fl (85-98); Mean Platelet Volume 9.1 fL (7.4-10.4); Monocytes # 1.1 10^3/uL (0.2-0.9); Monocytes % 8.8 %; Neutrophils % 59.4 %; Nucleated Red Blood Cells % 0 %; Platelet Count 353 10^3/cmm (157-399); Red Blood Count 5.59 10^6/uL (3.85-5.65); Red Cell Distribution Width 15.3 % (12.1-15.1); White Blood Count 12.32 10^3/uL (3.29-11.43)
[2023-12-10 21:30] LABS: INR 0.88 (0.8-1.2)
[2023-12-10 21:33] LABS: D Dimer 0.57 ug/mLFEU (0-0.59)
[2023-12-10 21:34] LABS: Add Urine Microscopic? NO
[2023-12-10 21:37] LABS: Bilirubin Urine Neg (Negative); Blood Urine Neg (Negative); Charge for UA Resulting for Rev; Glucose Urine UA Norm (Normal); Ketones Urine Negative (Negative); Leukocyte Esterase Urine Negative (Negative); Nitrate Urine Negative (Negative); Protein Urine Neg (Negative); Urine Appearance Clear (CLEAR); Urine Color Light yellow (Yellow); Urobilinogen Urine Neg (Negative); pH Urine 5 (5-7)
[2023-12-10 21:38] LABS: Troponin(5th) Baseline 11 ng/L (0-10)
[2023-12-10 21:47] LABS: Alanine Aminotransferase 23 U/L (0-33); Albumin Level 4.6 g/dL (3.5-5.2); Alkaline Phosphatase 74 U/L (35-105); Anion Gap 15.8 (5-19); Aspartate Amino Transferase 27 U/L (0-32); Blood Urea Nitrogen 20 mg/dL (6-20); Calcium 9.5 mg/dL (8.5-10.5); Carbon Dioxide 25 mmol/L (22-29); Chloride 105 mmol/L (98-107); Creatinine Clr Calc Pharmacy 98.6564; Globulin 3.3 g/dL (1.3-4.6); Glomerular Filtration Rate 74.5 mL/min (90-130); Glucose 88 mg/dL (65-115); Lipase 61 U/L (13-60); Osmolality Calculated 294 mOsm/kg (285-295); Potassium 4.8 mmol/L (3.5-5.1); Sodium 141 mmol/L (136-145); Thyroid Stimulating Hormone 7.02 uIU/mL (0.27-4.20); Total Bilirubin 0.4 mg/dL (0.15-1.2); Total Protein 7.9 g/dL (6.6-8.7)
[2023-12-10] MEDS: morphine 4 mg/mL SDV 1 mL IVP (21:47)
[2023-12-10] MEDS: ondansetron 2 mg/ML SDV 2 mL 4 MG IVP (21:47)
[2023-12-10 23:09] VITALS: BP 152/114; PULSE 80; RESP 16; O2SAT 96
[2023-12-10 23:53] LABS: Troponin 5 2HR 11.06 ng/L (0-10); Troponin 5 2HR Delta 0.06 ABS# (0-10)
[2023-12-11 00:11] VITALS: BP 152/114; PULSE 80; RESP 16; TEMP 36.7; O2SAT 96
== END 2023-12-11 00:13 | disposition home or self-care (01) ==
PROVIDERS: Emergency Provider Emergency Medicine
DX: R07.89 Other chest pain (principal); M79.605 Pain in left leg; M79.604 Pain in right leg; E03.9 Hypothyroidism, unspecified; Z79.82 Long term (current) use of aspirin; I25.10 Atherosclerotic heart disease of native coronary artery without angina pectoris; I50.30 Unspecified diastolic (congestive) heart failure
CPT/HCPCS: 36415; 70450; 71045; 80053; 81003; 83690; 84443; 84484; 85025; 85378; 85610; 93005; 96374; 96375; 99285; J2270; J2405